=== PATIENT | male | born 1950 | race Caucasian/White ===

== ENCOUNTER 2017-08-10 12:34 | Day surgery (SDC) | payer MEDICARE ==
[2017-08-10] MEDS ORDERED: LACTATED RINGERS 1,000 ML IV ONE (13:11)
[2017-08-10] MEDS ORDERED: MIDAZOLAM 2 MG/2 ML VIAL IVP ONE (13:29)
[2017-08-10] MEDS ORDERED: fentaNYL 100 MCG/2 ML VIAL IVP ONE (13:29)
[2017-08-10 14:42] VITALS: BP 120/72
--- NOTE | 2017-08-11 03:35 | PROCEDURE REPORT ---
DATE OF PROCEDURE: 08/10/2017 00:00:00 PROCEDURES PERFORMED 1. EGD. 2. Colonoscopy. ENDOSCOPIST: Amaris Lemus MD. PRIMARY CARE: Joey Wiseman MD. INDICATION: Recurrent dysphagia with known history of Schatzki ring, need for dilation. Need for foll owup colonoscopy. PREMEDICATIONS: Fentanyl 150 mcg, Versed 8 mg IV titration. TOTAL SEDATION TIME: 30 minutes. After informed consent was obtained, the patient was placed in the left lateral decubitus position. V ideo upper scope introduced in the oropharynx. The patient helped swallow into the esophagus. The eso phagus, stomach, and duodenum were carefully examined. On withdrawal, retroflexed view of the GE junc tion was performed. The scope was removed. The patient tolerated the procedure well. The patient was then turned, scope substituted, and the scope was easily passed to the cecum. Prepara tion was good. On slow withdrawal, mucosa was carefully examined. The scope was removed. The patient tolerated the procedure well. BLOOD LOSS: None. COMPLICATIONS: None. FINDINGS EGD 1. Schatzki's ring at 40 cm dilated to 51 Upper [place] Sav[place] without difficulty and with no resistance. 2. Normal stomach. 3. Normal duodenum. Colonoscopy 1. A 1 cm pedunculated polyp at 30 cm, cold snared and removed completely. 2. Otherwise negative colonoscopy to cecum. The patient will call me in 8 weeks and let me know how is doing with his swallowing. We could go hig her in the future. A recall colon will need to be in 5 years. JOB #: [id number] EXT JOB #:[id number]
== END 2017-08-10 12:35 | disposition home or self-care (01) ==
LOC: SDS 12:34
PROVIDERS: ATTEND Internal Medicine Gastroenterology
PROC: 0D758ZZ Dilation of Esophagus, Via Natural or Artificial Opening Endoscopic (ICD-10-PCS; principal; 2017-08-10 13:30)
PROC: 0DBE8ZX Excision of Large Intestine, Via Natural or Artificial Opening Endoscopic, Diagnostic (ICD-10-PCS; 2017-08-10 13:30)
DX: K22.2 Esophageal obstruction (principal); D12.6 Benign neoplasm of colon, unspecified; I10 Essential (primary) hypertension; I48.91 Unspecified atrial fibrillation; Z87.891 Personal history of nicotine dependence; K21.9 Gastro-esophageal reflux disease without esophagitis; Z79.82 Long term (current) use of aspirin
CPT/HCPCS: 43248; 45385; 88305; J7120

== ENCOUNTER 2018-04-21 09:40 | Outpatient (CLI) | payer MEDICARE ==
--- NOTE | 2018-04-21 10:27 | XRAY Report ---
Procedure Date: 04/21/2018 Accession Number: [id number] / [id number] Procedure: XR - Elbow 3 View RT CPT Code: FULL RESULT: EXAM: Elbow 3 View RT DATE: 04/21/2018 10:17 AM CLINICAL HISTORY: ELBOW JOINT PAIN, WRIST PAIN, THUMB PAIN, RIGHT COMPARISON: None. TECHNIQUE: 3 views. FINDINGS: Bones: There is a minimally displaced fracture of the radial head, involving the articular surface. Joints: Large effusion. Soft Tissues: Soft tissue swelling. IMPRESSION: Minimally displaced fracture of the radial head, involving the articular surface. RADIA
--- NOTE | 2018-04-21 10:29 | XRAY Report ---
Procedure Date: 04/21/2018 Accession Number: [id number] / [id number] Procedure: XR - Wrist 2 View RT CPT Code: FULL RESULT: EXAM: Wrist 2 View RT DATE: 04/21/2018 10:19 AM CLINICAL HISTORY: ELBOW JOINT PAIN, WRIST PAIN, THUMB PAIN, RIGHT COMPARISON: None. TECHNIQUE: 2 views. FINDINGS: Bones: Normal. No fractures or bone lesions. Joints: Mild osteoarthritis. Soft Tissues: Normal. No soft tissue swelling. IMPRESSION: Mild osteoarthritis. No evidence of fracture. RADIA
--- NOTE | 2018-04-21 10:31 | XRAY Report ---
Procedure Date: 04/21/2018 Accession Number: [id number] / [id number] Procedure: XR - Finger(s) RT CPT Code: FULL RESULT: EXAM: Finger(s) RT Right first digit radiography CLINICAL HISTORY: ELBOW JOINT PAIN, WRIST PAIN, THUMB PAIN, RIGHT COMPARISON: None. TECHNIQUE: 2 views. FINDINGS: Bones: Normal. No fracture or bone lesion. Joints: Mild osteoarthritis. Soft Tissues: Normal. No soft tissue swelling. IMPRESSION: Mild osteoarthritis. RADIA
== END 2018-04-21 09:41 | disposition home or self-care (01) ==
LOC: DI 09:40
PROVIDERS: ATTEND Nurse Practitioner Primary Care
DX: S52.121A Displaced fracture of head of right radius, initial encounter for closed fracture (principal); M19.031 Primary osteoarthritis, right wrist; M19.041 Primary osteoarthritis, right hand
CPT/HCPCS: 73140

== ENCOUNTER 2018-08-02 07:56 | Outpatient (CLI) | payer MEDICARE ==
[2018-08-02 08:56] LABS: BASOPHILS # (AUTO) 0.1 10^3/uL (0.0-0.1); EOSINOPHILS # (AUTO) 0.1 10^3/uL (0.0-0.7); HGB - HEMOGLOBIN 14.9 g/dL (14.0-18.0); LYMPHOCYTES # (AUTO) 1.2 10^3/uL (1.5-3.5); LYMPHOCYTES % (AUTO) 21.6 %; MEAN CORPUSCULAR HEMOGLOBIN 32.5 pg (27.0-31.0); MEAN CORPUSCULAR HGB CONC 34.3 g/dL (32.0-36.0); MEAN CORPUSCULAR VOLUME 94.8 fL (80.0-94.0); MEAN PLATELET VOLUME 8.7 fL (7.4-11.4); MONOCYTES # (AUTO) 0.6 10^3/uL (0.0-1.0); MONOCYTES % (AUTO) 10.3 %; NEUTROPHILS # (AUTO) 3.7 10^3/uL (1.5-6.6); NEUTROPHILS % (AUTO) 65.1 %; PLT - PLATELET COUNT 280 10^3/uL (130-450); RED BLOOD COUNT 4.56 10^6/uL (4.70-6.10); RED CELL DISTRIBUTION WIDTH 14.8 % (12.0-15.0); WHITE BLOOD COUNT 5.7 x10^3/uL (4.8-10.8)
[2018-08-02 09:04] LABS: ALBUMIN/GLOBULIN RATIO 1.2 (1.0-2.2); ALKALINE PHOSPHATASE 53 IU/L (42-121); ALT ALANINE AMINOTRANSFERASE 16 IU/L (10-60); AST ASPARTATE AMINOTRANSFERASE 22 IU/L (10-42); BILIRUBIN,TOTAL 0.7 mg/dL (0.2-1.0); BUN - BLOOD UREA NITROGEN 9 mg/dL (6-20); CALCIUM 8.9 mg/dL (8.5-10.3); CARBON DIOXIDE - CO2 28 mmol/L (21-32); CHLORIDE 99 mmol/L (101-111); CHOL/HDL RATIO 2.5 (<5.0); CHOLESTEROL 221 mg/dL; CREATININE 1.1 mg/dL (0.6-1.2); GFR - MDRD 67 (>89); GLUCOSE 97 mg/dL (70-100); HDL CHOLESTEROL 89 mg/dL; LDL CHOLESTEROL,CALCULATED 121 mg/dL; LDL/HDL RATIO 1.4 (<3.6); SODIUM 134 mmol/L (135-145); TOTAL PROTEIN 7.4 g/dL (6.7-8.2); VLDL CHOLESTEROL 11 mg/dL
[2018-08-02 09:20] LABS: HB2 TOTAL 15.9 g/dL; HEMOGLOBIN A1C 0.52 g/dL; HEMOGLOBIN A1C % 5.1 % (4.6-6.2)
== END 2018-08-02 07:57 | disposition home or self-care (01) ==
LOC: LAB 07:56
PROVIDERS: ATTEND Nurse Practitioner Primary Care
DX: I10 Essential (primary) hypertension (principal); R73.01 Impaired fasting glucose; C64.9 Malignant neoplasm of unspecified kidney, except renal pelvis; D04.9 Carcinoma in situ of skin, unspecified; Z79.899 Other long term (current) drug therapy
CPT/HCPCS: 36415; 80053; 80061; 83036; 83721; 84443; 85025

== ENCOUNTER 2018-10-16 08:48 | Outpatient (CLI) | payer MEDICARE ==
[2018-10-16 09:27] LABS: ALT ALANINE AMINOTRANSFERASE 21 IU/L (10-60); AST ASPARTATE AMINOTRANSFERASE 26 IU/L (10-42); CHOL/HDL RATIO 1.8 (<5.0); CHOLESTEROL 175 mg/dL; HDL CHOLESTEROL 100 mg/dL; LDL CHOLESTEROL,CALCULATED 62 mg/dL; LDL/HDL RATIO 0.6 (<3.6); VLDL CHOLESTEROL 13 mg/dL
== END 2018-10-16 08:49 | disposition home or self-care (01) ==
LOC: LAB 08:48
PROVIDERS: ATTEND Nurse Practitioner Primary Care
DX: E78.5 Hyperlipidemia, unspecified (principal); Z79.899 Other long term (current) drug therapy
CPT/HCPCS: 36415; 80061; 83721; 84450; 84460

== ENCOUNTER 2018-11-22 08:00 | Outpatient (CLI) | payer MEDICARE ==
[2018-11-22 11:51] LABS: BASOPHILS % (AUTO) 0.6 %; EOSINOPHILS # (AUTO) 0.1 10^3/uL (0.0-0.7); EOSINOPHILS % (AUTO) 1.2 %; HGB - HEMOGLOBIN 13.8 g/dL (14.0-18.0); LYMPHOCYTES # (AUTO) 1.3 10^3/uL (1.5-3.5); LYMPHOCYTES % (AUTO) 15.8 %; MEAN CORPUSCULAR HEMOGLOBIN 34.2 pg (27.0-31.0); MEAN CORPUSCULAR HGB CONC 34.4 g/dL (32.0-36.0); MEAN CORPUSCULAR VOLUME 99.3 fL (80.0-94.0); MEAN PLATELET VOLUME 9.5 fL (7.4-11.4); MONOCYTES # (AUTO) 0.7 10^3/uL (0.0-1.0); MONOCYTES % (AUTO) 8.2 %; NEUTROPHILS % (AUTO) 74.2 %; PLT - PLATELET COUNT 240 10^3/uL (130-450); RED BLOOD COUNT 4.05 10^6/uL (4.70-6.10); RED CELL DISTRIBUTION WIDTH 13.7 % (12.0-15.0); WHITE BLOOD COUNT 8.1 x10^3/uL (4.8-10.8)
[2018-11-22 11:55] LABS: BILIRUBIN,URINE NEGATIVE (NEGATIVE); GLUCOSE, URINE (UA) NEGATIVE (NEGATIVE); KETONES,URINE (UA) NEGATIVE (NEGATIVE); LEUKOCYTE ESTERASE, URINE NEGATIVE (NEGATIVE); NITRITE,URINE NEGATIVE (NEGATIVE); OCCULT BLOOD,URINE TRACE-INTA (NEGATIVE); PROTEIN,URINE NEGATIVE (NEGATIVE); UROBILINOGEN,URINE 0.2 (NORMAL) E.U./dL (NORMAL)
[2018-11-22 11:57] LABS: CLARITY,URINE CLEAR (CLEAR)
[2018-11-22 12:07] LABS: ALBUMIN/GLOBULIN RATIO 1.3 (1.0-2.2); BILIRUBIN,TOTAL 0.7 mg/dL (0.2-1.0); CALCIUM 8.8 mg/dL (8.5-10.3); CREATININE 1.1 mg/dL (0.6-1.2); TOTAL PROTEIN 7.2 g/dL (6.7-8.2)
[2018-11-22 12:17] LABS: PSA FREE 0.34 ng/mL (0.16-2.81)
[2018-11-22 12:18] LABS: PSA TOTAL 1.02 ng/mL (0.000-2.000)
== END 2018-11-22 23:59 | disposition home or self-care (01) ==
LOC: LAB.R 08:00
PROVIDERS: ATTEND Nurse Practitioner Primary Care
DX: R39.9 Unspecified symptoms and signs involving the genitourinary system (principal); R31.9 Hematuria, unspecified; C64.9 Malignant neoplasm of unspecified kidney, except renal pelvis; M54.5 Low back pain
CPT/HCPCS: 80053; 81001; 81003; 84153; 84154; 85025; 87086

== ENCOUNTER 2019-02-03 10:58 | Emergency (ER) | payer MEDICARE ==
[2019-02-03] MEDS ORDERED: DEXAMETHASONE 10 MG/ML VIAL PO STA (11:27)
--- NOTE | 2019-02-03 11:32 | ED Physician Documentation ---
PD HPI LOWER EXT INJURY - Stated complaint Stated Complaint: RT LEG PX - Chief complaint Chief Complaint: Ext Problem - History obtained from History obtained from: Patient - History of Present Illness PD HPI LOW EXT INJURY LOCATION: Right, Hip, Upper leg Type of injury: Other (no known injury) Where injury occurred: Home Timing - onset: How many weeks ago (3) Timing - duration: Weeks (3) Timing - details: Gradual onset, Still present Improved by: Rest, Immobilization Worsened by: Moving, Palpating Associated symptoms: No: Weakness, Numbness, Tingling, Swelling Contributing factors: No: Anticoagulated Similar symptoms before: Has not had sx before Recently seen: Clinic - Additional information Additional information: 68-year-old male with a history of lung and kidney cancer that is in remission has developed pain in his right iliac extending down to the right medial knee. He states that he has had this pain for about 3 weeks and has been into see his primary care doctor and is been put on some meloxicam which did not help with the pain. He has been diagnosed with a pinched nerve and he does not recall any specific injury. He has not had known bony metastases from his prior cancers and his current status on cancer is no apparent disease. Review of Systems Constitutional: denies: Fever Eyes: denies: Decreased vision Ears: denies: Ear pain Nose: denies: Rhinorrhea / runny nose, Congestion Throat: denies: Sore throat Cardiac: denies: Chest pain / pressure Respiratory: denies: Dyspnea, Cough GI: denies: Abdominal Pain, Nausea, Vomiting : denies: Dysuria, Frequency PD PAST MEDICAL HISTORY - Past Medical History Cardiovascular: Hypertension, Atrial fibrillation Respiratory: None Endocrine/Autoimmune: None GI: GERD, Colon polyps : None HEENT: None Psych: None Musculoskeletal: None Derm: None - Past Surgical History General: Colonoscopy - Present Medications Home Medications: Ambulatory Orders Medication Instructions Recorded Confirmed Cholecalciferol (Vitamin D3) 1,000 mg PO DAILY 05/21/14 06/21/18 [Vitamin D] Multivitamin [Multivitamins] 1 tab PO DAILY 05/21/14 06/21/18 Omeprazole 40 mg PO DAILY 05/21/14 06/21/18 Aspirin 325 mg PO DAILY 10/29/15 06/21/18 Metoprolol Succinate 25 mg PO DAILY 11/16/16 08/15/18 Albuterol Sulfate [Proair Hfa 8.5 gm IH 02/03/19 Inhaler] Cyclobenzaprine [Flexeril] 10 mg PO TID PRN #20 tablet 02/03/19 Hydrocodone/Acetaminophen 1 - 2 each PO Q6H PRN #14 tablet 02/03/19 [Hydrocodon-Acetaminophen 5-325] - Allergies Allergies/Adverse Reactions: Allergies Allergy/AdvReac Type Severity Reaction Status Date / Time No Known Drug Allergies Allergy Verified 05/21/14 10:32 PD ED PE NORMAL - Vitals Vital signs reviewed: Yes (hypertensive ) - General General: Alert and oriented X 3, No acute distress, Well developed/nourished - HEENT HEENT: Atraumatic, PERRL, EOMI - Respiratory Respiratory: No respiratory distress - Back Back: No CVA TTP, No spinal TTP, Other (no paraspinous muscle tenderness. there is some tenderness extending into the sciatic notch. ) - Derm Derm: Normal color, Warm and dry, No rash - Extremities Extremities: No deformity, No edema, Other (There is no point tenderness to palpation of the femur on the right and distal n/v is intact. 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, No motor deficit, No sensory deficit, Normal speech Eye Opening: Spontaneous Motor: Obeys Commands Verbal: Oriented GCS Score: 15 - Psych Psych: Normal mood, Normal affect Results - Vitals Vitals: Vital Signs - 24 hr 02/03/19 02/03/19 11:06 13:31 Temperature 36.7 C Heart Rate 68 65 Respiratory 18 20 Rate Blood Pressure 155/87 H 184/94 H O2 Saturation 98 100 Oxygen O2 Source Room air - Rads (name of study) hip and pelvis Radiology: Prelim report reviewed (Impression: Possible sub-capitate fracture versus osteophyte), EMP read indepedently, See rad report femur Radiology: Prelim report reviewed (Impression: Normal femur radiography. See hip report), EMP read indepedently, See rad report PD MEDICAL DECISION MAKING - ED course Complexity details: reviewed results, re-evaluated patient, considered differential, d/w patient, d/w family ED course: 68-year-old male with pain radiating down his right leg consistent with sciatica has a history of lung and kidney cancer and we have x-rayed his bones today looking for any sign of metastases. The bony pictures are without sign of metastases. There is a question of subcapitate fracture vs. osteophyte and the clinical presentation would be more consistent with osteophyte. The patient has been given dexamethasone 10 mg orally he has some relief of his pain with this. Departure - Departure Disposition: 01 Home, Self Care Clinical Impression: Sciatica Qualifiers: Laterality: right Qualified Code(s): M54.31 - Sciatica, right side Condition: Stable Instructions: ED Sciatica Follow-Up: José Miguel Garcia MD [Primary Care Provider] - Prescriptions: Cyclobenzaprine [Flexeril] 10 mg PO TID PRN #20 tablet PRN Reason: Spasms Hydrocodone/Acetaminophen [Hydrocodon-Acetaminophen 5-325] 1 - 2 each PO Q6H PRN #14 tablet PRN Reason: pain Discharge Date/Time: 02/03/19 13:32
--- NOTE | 2019-02-03 13:29 | XRAY Report ---
Reason: pain from illiac to knee Procedure Date: 02/03/2019 Accession Number: [id number] / [id number] Procedure: XR - Femur 2V RT CPT Code: FULL RESULT: EXAM: RIGHT FEMUR RADIOGRAPHY EXAM DATE: 02/03/2019 12:59 PM. CLINICAL HISTORY: Pain from iliac to knee. COMPARISON: None. TECHNIQUE: 2 views. FINDINGS: Bones: No fracture or bone lesion. Joints: T knee joint unremarkable. No effusions. Soft Tissues: Vascular calcifications. No soft tissue swelling. IMPRESSION: Normal femur radiography. See hip report [facility]
--- NOTE | 2019-02-03 13:29 | XRAY Report ---
Reason: pain from illiac to knee hx/o CA Procedure Date: 02/03/2019 Accession Number: [id number] / [id number] Procedure: XR - Hip w/Pelvis 2-3V RT CPT Code: FULL RESULT: EXAM: RIGHT HIP RADIOGRAPHY EXAM DATE: 02/03/2019 12:59 PM HISTORY: Pain from iliac to knee hx/o CA. COMPARISONS: HIP 2 VIEW LT 04/20/2013 9:27 AM FEMUR 2V RT 02/03/2019 12:40 PM. TECHNIQUE: 2 views. FINDINGS: Bones: Osteopenia is present. Linear sclerosis on frog leg along the head neck junction.. Joints: Mild joint space narrowing. Soft Tissues: Vascular calcifications No soft tissue swelling. DJD lower lumbosacral spine IMPRESSION: Possible sub-capitate fracture versus osteophyte RAD[facility]
[2019-02-03 13:33] VITALS: BP 184/94
== END 2019-02-03 13:32 | disposition home or self-care (01) ==
LOC: ED 10:58
DX: M54.31 Sciatica, right side (principal); I10 Essential (primary) hypertension; Z85.118 Personal history of other malignant neoplasm of bronchus and lung; Z85.528 Personal history of other malignant neoplasm of kidney
CPT/HCPCS: 99283

== ENCOUNTER 2019-07-04 09:28 | Outpatient (CLI) | payer MEDICARE ==
[~2019-07-04 09:28] MED LIST: ALBUTEROL NEB 2.5 MG/3 ML INH SCH
[2019-07-04] MEDS ORDERED: ALBUTEROL NEB 2.5 MG/3 ML INH SCH (10:00)
== END 2019-07-04 09:29 | disposition home or self-care (01) ==
LOC: RT 09:28
PROVIDERS: ATTEND Family Medicine
DX: R06.2 Wheezing (principal)
CPT/HCPCS: 94060; 94664; 94727; 94729

== ENCOUNTER 2019-08-01 09:52 | Outpatient (CLI) | payer MEDICARE ==
[2019-08-01] MEDS ORDERED: IOVERSOL 320 100 ML VIAL IVP ONE (10:09)
[2019-08-01] MEDS ORDERED: IOVERSOL 320 50 ML VIAL ONE (10:09)
[2019-08-01 10:16] LABS: BASOPHILS # (AUTO) 0.1 10^3/uL (0.0-0.1); BASOPHILS % (AUTO) 0.5 %; EOSINOPHILS # (AUTO) 0.1 10^3/uL (0.0-0.7); EOSINOPHILS % (AUTO) 0.7 %; HGB - HEMOGLOBIN 14.3 g/dL (14.0-18.0); LYMPHOCYTES # (AUTO) 1.5 10^3/uL (1.5-3.5); LYMPHOCYTES % (AUTO) 15.9 %; MEAN CORPUSCULAR HEMOGLOBIN 34.2 pg (27.0-31.0); MEAN CORPUSCULAR HGB CONC 35.2 g/dL (32.0-36.0); MEAN CORPUSCULAR VOLUME 97.1 fL (80.0-94.0); MEAN PLATELET VOLUME 9.8 fL (7.4-11.4); MONOCYTES # (AUTO) 0.9 10^3/uL (0.0-1.0); MONOCYTES % (AUTO) 9.2 %; NEUTROPHILS # (AUTO) 6.9 10^3/uL (1.5-6.6); NEUTROPHILS % (AUTO) 73.4 %; PLT - PLATELET COUNT 252 10^3/uL (130-450); RED BLOOD COUNT 4.18 10^6/uL (4.70-6.10); RED CELL DISTRIBUTION WIDTH 12.9 % (12.0-15.0); WHITE BLOOD COUNT 9.4 x10^3/uL (4.8-10.8)
[2019-08-01 10:34] LABS: ALBUMIN 3.9 g/dL (3.2-5.5); ALBUMIN/GLOBULIN RATIO 1.1 (1.0-2.2); BILIRUBIN,TOTAL 0.8 mg/dL (0.2-1.0); CALCIUM 9.1 mg/dL (8.5-10.3); CREATININE 1.1 mg/dL (0.6-1.2); TOTAL PROTEIN 7.6 g/dL (6.7-8.2)
--- NOTE | 2019-08-05 13:17 | CT Report ---
Reason: LUNG CA Procedure Date: 08/01/2019 Accession Number: [id number] / [id number] Procedure: CT - CHEST W CPT Code: FULL RESULT: EXAM: CT CHEST EXAM DATE: 08/01/2019 11:50 AM. CLINICAL HISTORY: Malignant neoplasm of the lung. COMPARISONS: ABDOMEN/PELVIS W/ 12/05/2017 10:56 AM CHEST W/ 05/31/2018 9:47 AM ABDOMEN/PELVIS W/ 08/01/2019 11:20 AM CHEST W05/31/2018 9:59 AM. TECHNIQUE: Routine helical CT imaging was performed through the chest. IV contrast: 100 mL Optiray 320. Reconstructions: Coronal and sagittal. In accordance with CT protocol optimization, one or more of the following dose reduction techniques were utilized for this exam: automated exposure control, adjustment of mA and/or KV based on patient size, or use of iterative reconstructive technique. FINDINGS: Lungs/Pleura: Moderate centrilobular emphysema is seen. Postoperative changes related to left lower lobectomy are again seen. There is no mass to suggest tumor recurrence. Stable mild subpleural scarring and thoracotomy changes along the left mid to lower chest wall. Stable 4 mm right lower lobe pulmonary nodule (image 195/3). Mediastinum: Heart size is normal with no pericardial effusion or adenopathy. Postoperative changes in the left hilum are seen again. The great vessels are unremarkable. Bones: Unremarkable. Visualized Abdomen: See separate report. Other: None. IMPRESSION: 1. Stable exam compared with 05/31/2018 status post left lower lobectomy with no findings to suggest residual or recurrent malignancy. 2. Stable moderate emphysema and tiny 4 mm right lower lobe pulmonary nodule. RADIA
--- NOTE | 2019-08-05 13:18 | CT Report ---
Reason: LUNG CA Procedure Date: 08/01/2019 Accession Number: [id number] / [id number] Procedure: CT - Abdomen/Pelvis W CPT Code: FULL RESULT: EXAM: CT ABDOMEN AND PELVIS EXAM DATE: 08/01/2019 11:50 AM. CLINICAL HISTORY: Malignant neoplasm of the left lower lobe. COMPARISONS: ABDOMEN/PELVIS W/ 12/05/2017 10:56 AM ABDOMEN/PELVIS W/ 05/31/2018 9:47 AM ABDOMEN/PELVIS W05/31/2018 9:59 AM. TECHNIQUE: Routine helical CT imaging was performed through the abdomen and pelvis. IV contrast: 100 mL Optiray 320. Enteric contrast: Yes. Reconstructions: Coronal and sagittal. In accordance with CT protocol optimization, one or more of the following dose reduction techniques were utilized for this exam: automated exposure control, adjustment of mA and/or KV based on patient size, or use of iterative reconstructive technique. FINDINGS: Lung Bases: See separate report. Liver: Unremarkable. Gallbladder/Bile Ducts: Unremarkable. Spleen: Normal. Pancreas: Normal. Adrenal Glands: Normal. Kidneys: Postoperative changes related to right nephrectomy are again seen. The left kidney demonstrates a small cyst and cortical scarring in the lateral mid kidney, stable. No hydronephrosis. Peritoneal Cavity/Bowel: There is mild predominantly sigmoid diverticulosis without evidence of diverticulitis. There is no obstruction or ileus. No free fluid or free air. The appendix is well visualized and normal. Pelvic Organs: The bladder wall is borderline diffusely thickened, nonspecific. Bladder and visualized pelvic organs are otherwise within normal limits. Vasculature: Calcified atherosclerotic disease of the aorta is seen without aneurysm or other significant vascular abnormality. Bones: Degenerative changes are seen in the spine. No lytic or blastic lesion is identified. Other: Small fat-containing periumbilical hernia is seen. IMPRESSION: 1. No adenopathy or mass to suggest malignancy status post right nephrectomy. 2. Mild sigmoid diverticulosis without diverticulitis. 3. Borderline thick-walled partially decompressed bladder which may be related to chronic retention. Correlate clinically for cystitis. 4. Small fat-containing periumbilical hernia. RADIA
== END 2019-08-01 09:53 | disposition home or self-care (01) ==
LOC: DI 09:52
PROVIDERS: ATTEND Internal Medicine
DX: J43.2 Centrilobular emphysema (principal); R91.1 Solitary pulmonary nodule; Z08 Encounter for follow-up examination after completed treatment for malignant neoplasm; Z85.118 Personal history of other malignant neoplasm of bronchus and lung; Z90.2 Acquired absence of lung [part of]; K42.9 Umbilical hernia without obstruction or gangrene; K57.30 Diverticulosis of large intestine without perforation or abscess without bleeding
CPT/HCPCS: 36415; 71260; 74177; 80053; 85025; Q9967

== ENCOUNTER 2020-07-31 10:01 | Outpatient (CLI) | payer MEDICARE ==
[2020-07-31] MEDS ORDERED: IOVERSOL 320 50 ML VIAL ONE (10:20)
[2020-07-31] MEDS ORDERED: IOVERSOL 320 100 ML VIAL IVP ONE ×2 (10:20→13:39)
[2020-07-31 10:37] LABS: BASOPHILS # (AUTO) 0.1 10^3/uL (0.0-0.1); BASOPHILS % (AUTO) 0.5 %; EOSINOPHILS # (AUTO) 0.1 10^3/uL (0.0-0.7); EOSINOPHILS % (AUTO) 0.4 %; HGB - HEMOGLOBIN 14.4 g/dL (14.0-18.0); LYMPHOCYTES # (AUTO) 1.4 10^3/uL (1.5-3.5); LYMPHOCYTES % (AUTO) 11.6 %; MEAN CORPUSCULAR HEMOGLOBIN 34.2 pg (27.0-31.0); MEAN CORPUSCULAR HGB CONC 34.8 g/dL (32.0-36.0); MEAN CORPUSCULAR VOLUME 98.3 fL (80.0-94.0); MEAN PLATELET VOLUME 9.7 fL (7.4-11.4); MONOCYTES # (AUTO) 0.9 10^3/uL (0.0-1.0); MONOCYTES % (AUTO) 7.5 %; NEUTROPHILS # (AUTO) 9.5 10^3/uL (1.5-6.6); NEUTROPHILS % (AUTO) 79.7 %; PLT - PLATELET COUNT 274 10^3/uL (130-450); RED BLOOD COUNT 4.21 10^6/uL (4.70-6.10); RED CELL DISTRIBUTION WIDTH 12.6 % (12.0-15.0)
[2020-07-31 10:46] LABS: ALBUMIN/GLOBULIN RATIO 1.1 (1.0-2.2); BILIRUBIN,TOTAL 0.9 mg/dL (0.2-1.0); CALCIUM 9.1 mg/dL (8.5-10.3); CREATININE 1.3 mg/dL (0.6-1.2); TOTAL PROTEIN 7.5 g/dL (6.7-8.2)
--- NOTE | 2020-07-31 13:15 | CT Report ---
PROCEDURE: Abdomen/Pelvis W INDICATIONS: HX LUNG CA CONTRAST: IV CONTRAST: Optiray 320 ml: 100 PO CONTRAST: Optiray 320 ml50 TECHNIQUE: After the administration of oral and intravenous contrast, 5 mm thick sections acquired from the diap hragms to the symphysis. 5 mm thick coronal and sagittal reformats were acquired. For radiation dos e reduction, the following was used: automated exposure control, adjustment of mA and/or kV accordin g to patient size. COMPARISON: 08/01/2019 FINDINGS: Image quality: Excellent. ABDOMEN: Lung bases: Lung bases are clear. Heart size is normal. Solid organs: Liver and spleen are normal in size and enhancement. Gallbladder is unremarkable. Bi liary system is non dilated. Pancreas enhances normally. No adrenal nodules. Right kidney is surgic ally absent. Left kidney is unremarkable. Peritoneum and bowel: Bowel loops demonstrate normal wall thickness and caliber. No free fluid or a ir. There is a mobile cecum. The cecum currently sits lateral to the right lobe of the liver. Refere nce image 30/6 and image 30/3. The fat-containing ileocecal valve is present on those images. Nodes and vessels: No retroperitoneal or mesenteric adenopathy by size criteria. Aorta and inferior vena cava are normal in size. 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 Refe rence image 35/3 and image 33/7. Miscellaneous: No ventral hernias. PELVIS: Genitourinary: Bladder partially decompressed with mild chronic bladder wall thickening. Miscellaneous: No inguinal hernias or adenopathy. Bones: No suspicious bony lesions. No vertebral body compression fractures. IMPRESSION: 1. No evidence of metastatic disease in the abdomen and pelvis. 2. 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 3. Mobile cecum incidentally noted. 4. Remote right nephrectomy. Reviewed by: Maurice Pagan MD on 07/31/2020 1:14 PM PDT Approved by: Maurice Pagan MD on 07/31/2020 1:14 PM PDT Station ID: [id number]
--- NOTE | 2020-07-31 13:25 | CT Report ---
PROCEDURE: CHEST W INDICATIONS: HX LUNG CA CONTRAST: IV CONTRAST: Optiray 320 ml: 100 PO CONTRAST: Optiray 320 ml50 TECHNIQUE: After the administration of intravenous contrast, 5 mm thick sections acquired from the pulmonary api jay to the posterior costophrenic angles. 7 mm thick coronal MIP reformats were acquired. For radia tion dose reduction, the following was used: automated exposure control, adjustment of mA and/or kV according to patient size. COMPARISON: 08/01/2019, 05/31/2018. FINDINGS: Image quality: Excellent. Lungs and pleura: Moderate centrilobular emphysema. Remote partial left pulmonary resection. Stable 4 mm subpleural pulmonary nodule, right lower lobe compared to the most recent prior study. This nodul e is more conspicuous on the most recent 2 studies relative to the 2018 study. However, this is likel y secondary to differences in technique. The initial study utilized 5 mm thick slices, and the subseq uent 2 studies were utilized 1 mm thick slices. No new or increasing pulmonary nodules. Central and p eripheral airways are patent and normal in caliber. Mediastinum: Heart size is normal. No pericardial effusion. No mediastinal or hilar adenopathy by size criteria. Thoracic aorta and central pulmonary arteries are normal in size. Esophagus is price l in caliber. No hiatal hernia. Bones and chest wall: No suspicious bony lesions. No vertebral body compression fractures. No axil charley or supraclavicular adenopathy by size criteria. Thyroid gland is unremarkable as imaged.. Abdomen: Remote right nephrectomy. Visualized upper abdominal solid organs appear normal. Upper abd ominal bowel loops are normal in caliber. IMPRESSION: 1. Remote partial left pulmonary resection. 2. Moderate centrilobular emphysema. 3. Stable 4 mm right lower lobe subpleural pulmonary nodule 4. No new or increasing pulmonary nodules. 5. Remote right nephrectomy. 6. No other findings suspicious for metastatic disease. Reviewed by: Maurice Pagan MD on 07/31/2020 1:23 PM PDT Approved by: Maurice Pagan MD on 07/31/2020 1:23 PM PDT Station ID: [id number]
[2020-07-31] MEDS ORDERED: IOVERSOL 320 50 ML VIAL PO ONE (13:39)
== END 2020-07-31 10:02 | disposition home or self-care (01) ==
LOC: DI 10:01
PROVIDERS: ATTEND Internal Medicine
DX: Z08 Encounter for follow-up examination after completed treatment for malignant neoplasm (principal); Z85.118 Personal history of other malignant neoplasm of bronchus and lung; R91.1 Solitary pulmonary nodule; J43.2 Centrilobular emphysema
CPT/HCPCS: 36415; 71260; 74177; 80053; 85025; Q9967

== ENCOUNTER 2021-02-20 10:19 | Day surgery (SDC) | payer MEDICARE ==
[2021-02-20] MEDS ORDERED: LACTATED RINGERS 1,000 ML IV ONE (10:51)
--- NOTE | 2021-02-20 12:37 | HISTORY & PHYSICAL EXAMINATION ---
Chief Complaint - Chief Complaint Chief Complaint: history colon polyp History of Present Illness - History Obtained From Records Reviewed: yes History obtained from: pt Exam Limitations: none - History of Present Illness HPI Comment/Other: History colon polyp. Here for surveillance colonoscopy. History - Past Medical History Cardiovascular: reports: Hypertension Respiratory: reports: COPD, Other Endocrine/Autoimmune: reports: None GI: reports: Colon polyps : reports: None, Other HEENT: reports: None Psych: reports: None Musculoskeletal: reports: None Derm: reports: None MRSA Hx?: No - Past Surgical History General: reports: Other Meds/Allgy - Home Medications Home Medications: Ambulatory Orders Medication Instructions Recorded Confirmed Cholecalciferol (Vitamin D3) 1,000 mg PO DAILY 05/21/14 02/19/21 [Vitamin D] Multivitamin [Multivitamins] 1 tab PO DAILY 05/21/14 02/19/21 Omeprazole 40 mg PO DAILY 05/21/14 02/19/21 Aspirin 325 mg PO DAILY 10/29/15 02/19/21 Metoprolol Succinate 25 mg PO DAILY 09/22/16 02/19/21 Fluticasone/Salmeterol [Advair 1 each INH PRN PRN 08/08/19 02/19/21 500-50 Diskus] - Allergies Allergies/Adverse Reactions: Allergies Allergy/AdvReac Type Severity Reaction Status Date / Time No Known Drug Allergies Allergy Verified 08/06/20 13:10 Review of Systems - Constitutional Constitutional: reports: Fatigue (10 pt ros as above otherwise unremarkable) Exam - Vital Signs Reviewed Vital Signs: Yes Vital Signs: Vital Signs x48h Temp Pulse Resp BP Pulse Ox 02/20/21 10:36 36.5 C 86 16 155/90 H 97 - Physical Exam General Appearance: positive: No acute distress, Alert Eyes Bilateral: positive: Normal inspection, PERRL ENT: positive: No signs of dehydration Neck: positive: No JVD, Trachea midline Respiratory: positive: No respiratory distress, Breath sounds nml Cardiovascular: positive: Regular rate & rhythm Abdomen: positive: Non-tender, No distention Neurologic/Psychiatric: positive: Oriented x3 Conclusion/Plan - Problem List (1) Colon cancer screening Conclusion/Plan: plan colonoscopy. parq held and consent obtained
[2021-02-20] MEDS ORDERED: fentaNYL 250 MCG/5 ML VIAL ONE (12:44)
[2021-02-20] MEDS ORDERED: MIDAZOLAM 2 MG/2 ML VIAL ONE ×3 (12:44→13:05)
[2021-02-20] MEDS ORDERED: LACTATED RINGERS 150 ML IV ONE (13:43)
[2021-02-20 14:15] VITALS: BP 138/81
== END 2021-02-20 10:20 | disposition home or self-care (01) ==
LOC: SDS 10:19
PROVIDERS: ATTEND Surgery
PROC: 0DBN8ZX Excision of Sigmoid Colon, Via Natural or Artificial Opening Endoscopic, Diagnostic (ICD-10-PCS; 2021-02-20)
PROC: 0DBM8ZX Excision of Descending Colon, Via Natural or Artificial Opening Endoscopic, Diagnostic (ICD-10-PCS; 2021-02-20)
PROC: 0DBH8ZZ Excision of Cecum, Via Natural or Artificial Opening Endoscopic (ICD-10-PCS; 2021-02-20)
PROC: 0DBH8ZZ Excision of Cecum, Via Natural or Artificial Opening Endoscopic (ICD-10-PCS; principal; 2021-02-20 11:30)
DX: Z12.11 Encounter for screening for malignant neoplasm of colon (principal); D12.5 Benign neoplasm of sigmoid colon; D12.0 Benign neoplasm of cecum; D12.4 Benign neoplasm of descending colon; K57.30 Diverticulosis of large intestine without perforation or abscess without bleeding; J44.9 Chronic obstructive pulmonary disease, unspecified; I10 Essential (primary) hypertension; Z80.0 Family history of malignant neoplasm of digestive organs
CPT/HCPCS: 45380; 45385; J3010; J7120

== ENCOUNTER 2021-07-29 08:59 | Outpatient (CLI) | payer MEDICARE ==
[2021-07-29] MEDS ORDERED: IOVERSOL 320 50 ML VIAL ONE (09:10)
[2021-07-29] MEDS ORDERED: IOPAMIDOL-300 100 ML VIAL ONE (09:10)
--- NOTE | 2021-07-29 10:46 | CT Report ---
PROCEDURE: Abdomen/Pelvis W INDICATIONS: Lung cancer staging; history of renal cell carcinoma CONTRAST: IV CONTRAST: Isovue 300 ml: 100 PO CONTRAST: Optiray 320 ml50 TECHNIQUE: After the administration of intravenous contrast, 5 mm thick sections acquired from the diaphragms to the symphysis. 5 mm thick coronal and sagittal reformats were acquired. For radiation dose reducti on, the following was used: automated exposure control, adjustment of mA and/or kV according to tree ent size. COMPARISON: 07/31/2020 FINDINGS: Image quality: Excellent. ABDOMEN: Solid organs: Status post right nephrectomy. No suspicious soft tissue density or enhancement within the nephrectomy bed. Left kidney demonstrates normal enhancement of the abdomen since unchanged scarr ing in the anterior cortex on series 3 image 30. No adrenal gland nodule or mass. Uniform hepatic par enchymal attenuation. No splenomegaly. Normal appearance of the pancreas without evidence of mass or ductal dilatation. Peritoneum and bowel: Bowel loops demonstrate normal wall thickness and caliber. No free fluid or a ir. Nodes and vessels: No retroperitoneal or mesenteric adenopathy by size criteria. Aorta and inferior vena cava are normal in size. Miscellaneous: No ventral hernias. PELVIS: Genitourinary: Chronic urinary bladder wall thickening as seen on prior studies. No discrete mass julienne ntified. Miscellaneous: No inguinal hernias or adenopathy. Bones: No suspicious bony lesions. No vertebral body compression fractures. IMPRESSION: No evidence of metastatic disease in the abdomen or pelvis. Remote right nephrectomy with no suspicious soft tissue density in the nephrectomy bed. Reviewed by: Conner Ortiz MD on 07/29/2021 10:44 AM PDT Approved by: Conner Ortiz MD on 07/29/2021 10:44 AM PDT Station ID: [id number]
[2021-07-29] MEDS ORDERED: IOPAMIDOL-300 100 ML VIAL IVP ONE (11:33)
[2021-07-29] MEDS ORDERED: IOVERSOL 320 50 ML VIAL PO ONE (11:33)
--- NOTE | 2021-07-29 13:34 | CT Report ---
PROCEDURE: CHEST W INDICATIONS: LUNG CA CONTRAST: IV CONTRAST: Isovue 300 ml: 100 PO CONTRAST: Optiray 320 ml50 TECHNIQUE: After the administration of intravenous contrast, images were acquired from the pulmonary apices to t he posterior costophrenic angles. Multiplanar MIP reformats were acquired. For radiation dose reduc tion, the following was used: automated exposure control, adjustment of mA and/or kV according to pa tient size. COMPARISON: 07/31/2020. FINDINGS: Image quality: Excellent. Lungs and pleura: Moderate centrilobular pulmonary emphysematous changes as before. Dependent atelec tasis. No acute air space opacities. No pleural effusions or pneumothorax. Stable postsurgical carrizales ges from partial left pneumonectomy. No septal thickening or nodularity. Stable 4 mm peripheral right lower lobe pulmonary nodule seen on axial image 216/series 3. No new nodules or enlarging nodules. C entral and peripheral airways are patent and normal in caliber. Mediastinum: Heart size is normal. No pericardial effusion. No mediastinal or hilar adenopathy by size criteria. Thoracic aorta and central pulmonary arteries are normal in size. Esophagus is price l in caliber. No hiatal hernia. Bones and chest wall: No suspicious bony lesions. No acute vertebral body compression fractures. S urgical clips noted in the right axilla. No axillary or supraclavicular adenopathy by size criteria. The thyroid is normal in size and there are no incidental findings.. Abdomen: Visualized upper abdominal solid organs appear unremarkable. Stable postsurgical changes fr om previous right nephrectomy. Abdomen and pelvis findings are reported as a separate report. IMPRESSION: 1. Stable appearance of postsurgical changes from partial left pneumonectomy. 2. Stable 4 mm right lower lobe pulmonary nodule. No new nodules identified. 3. Stable appearance of moderate centrilobular pulmonary emphysema. 4. No evidence for recurrent or metastatic disease. CLINICAL RECOMMENDATION STATEMENTS: In patients <35 years with an ITN detected on CT, MRI, or extrathyroidal ultrasound, the Committee re commends further evaluation with dedicated thyroid ultrasound if the nodule is ?1 cm and has no suspi cious imaging features, and if the patient has normal life expectancy. In patients ?35 years with an ITN detected on CT, MRI, or extrathyroidal ultrasound, the Committee re commends further evaluation with dedicated thyroid ultrasound if the nodule is ?1.5 cm and has no eva picious imaging features, and if the patient has normal life expectancy. (ACR, 2014) Reviewed by: Pedrito Quintero MD on 07/29/2021 1:33 PM PDT Approved by: Pedrito Quintero MD on 07/29/2021 1:33 PM PDT Station ID: [id number]
== END 2021-07-29 09:00 | disposition home or self-care (01) ==
LOC: DI 08:59
PROVIDERS: ATTEND Internal Medicine
DX: Z85.110 Personal history of malignant carcinoid tumor of bronchus and lung (principal); Z90.5 Acquired absence of kidney; Z90.2 Acquired absence of lung [part of]; R91.1 Solitary pulmonary nodule; J43.2 Centrilobular emphysema

== ENCOUNTER 2022-07-29 08:24 | Day surgery (SDC) | payer MEDICARE ==
[2022-07-29] MEDS ORDERED: LACTATED RINGERS 1,000 ML IV ONE ×2 (08:29→11:41)
--- NOTE | 2022-07-29 09:43 | ANESTHESIA ---
Pre-Anesthesia VS, & Labs - Diagnosis hx of polyps - Procedure colonoscopy Vital Signs: Temp Pulse Resp BP Pulse Ox O2 Flow Rate 36.5 C 78 16 116/82 H 97 0 07/29/22 08:45 07/29/22 08:45 07/29/22 08:45 07/29/22 08:45 07/29/22 08:45 07/29/22 08:45 Height: 6 ft 4 in Weight (kg): 81.9 kg Body Mass Index: 21.9 BMI Classification: Normal - NPO >8 hours Home Medications and Allergies Home Medications: Ambulatory Orders Albuterol 2.5 mg INH Q4H PRN 07/28/22 Atorvastatin [Lipitor] 20 mg PO DAILY 07/28/22 Tiotropium [place] [Spiriva] 1 puffs INH DAILY 07/28/22 Cholecalciferol (Vitamin D3) [Vitamin D] 1,000 mg PO DAILY 05/21/14 Multivitamin [Multivitamins] 1 tab PO DAILY 05/21/14 Omeprazole 40 mg PO DAILY 05/21/14 Metoprolol Succinate 25 mg PO DAILY 09/22/16 Fluticasone/Salmeterol [Advair 500-50 Diskus] 1 each INH PRN PRN 08/08/19 Albuterol 2.5 mg INH Q4H PRN 07/28/22 Atorvastatin [Lipitor] 20 mg PO DAILY 07/28/22 Tiotropium [place] [Spiriva] 1 puffs INH DAILY 07/28/22 Allergies/Adverse Reactions: Allergies Allergy/AdvReac Type Severity Reaction Status Date / Time No Known Drug Allergies Allergy Verified 08/06/20 13:10 Anes History & Medical History - Anesthetic History Anesthesia Complications: reports: No previous complications Family history of Anesthesia Complications: Denies Family history of Malignant Hyperthermia: Denies - Medical History Cardiovascular: reports: Hypertension Pulmonary: reports: COPD, Other Gastrointestinal: reports: Colon polyps Urinary: reports: None, Other Musculoskeletal: reports: None Endocrine/Autoimmune: reports: None Skin: reports: None Smoking Status: Never smoker - Surgical History General: reports: Colonoscopy, Other Urologic: reports: Nephrectomy Exam General: Alert, Oriented x3, Cooperative Dental: WNL Mouth Openin Fingerbreadth Neck Mobility: Normal Mallampati classification: II Thyromental Distance: 4-6 cm Respiratory: Lungs clear Cardiovascular: Regular rate Plan Anesthesia Type: Total IV Consent for Procedure(s) Verified and Reviewed: Yes Code Status: Attempt Resuscitation ASA classification: 3-Severe systemic disease Is this case an emergency?: No
[2022-07-29] MEDS ORDERED: PROPOFOL 200 MG/20 ML VIAL IVP ONE (09:59)
[2022-07-29] MEDS ORDERED: LIDOCAINE-MPF 2% 5 ML VIAL ONE (09:59)
[2022-07-29] MEDS ORDERED: PROPOFOL 500 MG/50 ML 500 MG/50 ML VIAL ONE (09:59)
[2022-07-29] MEDS ORDERED: ePHEDrine 50 MG/ML VIAL IVP ONE (11:04)
[2022-07-29 11:15] VITALS: BP 125/77
--- NOTE | 2022-07-29 16:49 | ANESTHESIA POST OP EVALUATION ---
Anesthesia Post Eval - Post Anesthesia Eval Vitals: Last Vital Signs Temp 36.5 C 07/29/22 11:15 Pulse 84 07/29/22 11:15 Resp 14 07/29/22 11:15 BP 125/77 07/29/22 11:15 Pulse Ox 97 07/29/22 11:15 O2 Flow Rate 0 07/29/22 08:45 CV Function Including HR & BP: Stable Pain Control: Satisfactory Nausea & Vomiting: Negative Mental Status: Baseline Respiratory Status: Airway Patent Hydration Status: Satisfactory Anesthesia Complications: None
== END 2022-07-29 08:25 | disposition home or self-care (01) ==
LOC: SDS 08:24
PROVIDERS: ATTEND Surgery
PROC: 0DBH8ZX Excision of Cecum, Via Natural or Artificial Opening Endoscopic, Diagnostic (ICD-10-PCS; principal; 2022-07-29 09:45)
DX: D12.0 Benign neoplasm of cecum (principal); K57.30 Diverticulosis of large intestine without perforation or abscess without bleeding; J44.9 Chronic obstructive pulmonary disease, unspecified; I10 Essential (primary) hypertension; Z85.118 Personal history of other malignant neoplasm of bronchus and lung
CPT/HCPCS: 45380; J7120

== ENCOUNTER 2023-05-19 06:24 | Day surgery (SDC) | payer MEDICARE ==
[2023-05-19] MEDS ORDERED: PROPOFOL 500 MG/50 ML 500 MG/50 ML VIAL ONE (06:46)
[2023-05-19] MEDS ORDERED: LACTATED RINGERS 1,000 ML IV ONE ×2 (06:57→08:16)
[2023-05-19] MEDS ORDERED: ALBUTEROL 8 GM INHALER INH ONE (07:08)
--- NOTE | 2023-05-19 07:11 | ANESTHESIA ---
Pre-Anesthesia VS, & Labs - Diagnosis hx of polyps - Procedure colonoscopy Vital Signs: Temp Pulse Resp BP Pulse Ox O2 Flow Rate 36.2 C L 72 16 129/70 100 05/19/23 06:43 05/19/23 06:43 05/19/23 06:43 05/19/23 06:43 05/19/23 06:43 Height: 6 ft 4 in Weight (kg): 76.5 kg Body Mass Index: 20.5 BMI Classification: Normal - NPO >8 hours - Lab Results Lab results reviewed: Yes Home Medications and Allergies Home Medications: Ambulatory Orders amLODIPine [Norvasc] 5 mg PO DAILY 05/18/23 Cholecalciferol (Vitamin D3) [Vitamin D] 1,000 mg PO DAILY 05/21/14 Multivitamin [Multivitamins] 1 tab PO DAILY 05/21/14 Omeprazole 40 mg PO DAILY 05/21/14 Metoprolol Succinate 25 mg PO DAILY 09/22/16 Fluticasone/Salmeterol [Advair 500-50 Diskus] 1 each INH PRN PRN 08/08/19 Albuterol 2.5 mg INH Q4H PRN 07/28/22 Atorvastatin [Lipitor] 20 mg PO DAILY 07/28/22 Tiotropium [place] [Spiriva] 1 puffs INH DAILY 07/28/22 amLODIPine [Norvasc] 5 mg PO DAILY 05/18/23 Allergies/Adverse Reactions: Allergies Allergy/AdvReac Type Severity Reaction Status Date / Time No Known Drug Allergies Allergy Verified 08/06/20 13:10 Anes History & Medical History - Anesthetic History Anesthesia Complications: reports: No previous complications Family history of Anesthesia Complications: Denies Family history of Malignant Hyperthermia: Denies - Medical History Cardiovascular: reports: Hypertension, Other (hx of afib) Pulmonary: reports: COPD, Other Gastrointestinal: reports: Colon polyps Urinary: reports: None, Other Musculoskeletal: reports: None Endocrine/Autoimmune: reports: None Skin: reports: None Smoking Status: Current every day smoker - Surgical History General: reports: Colonoscopy, Other Urologic: reports: Nephrectomy Exam General: Alert, Oriented x3, Cooperative Dental: Partials Lower Mouth Openin Fingerbreadth Neck Mobility: Normal Mallampati classification: II Thyromental Distance: 4-6 cm Respiratory: Wheezing Cardiovascular: Regular rate (albuterol in preop) Plan Anesthesia Type: General, MAC Consent for Procedure(s) Verified and Reviewed: Yes Code Status: Attempt Resuscitation ASA classification: 3-Severe systemic disease Is this case an emergency?: No
--- NOTE | 2023-05-19 07:22 | HISTORY & PHYSICAL EXAMINATION ---
Chief Complaint - Chief Complaint Chief Complaint: here for colonoscopy History of Present Illness - History Obtained From Records Reviewed: yes History obtained from: pt Exam Limitations: none - History of Present Illness HPI Comment/Other: hx large flat polyp cecum removed piecemeal. here for surveillance colonoscopy History - Past Medical History Cardiovascular: reports: Hypertension, Other (hx of afib) Respiratory: reports: COPD, Other Endocrine/Autoimmune: reports: None GI: reports: Colon polyps : reports: None, Other HEENT: reports: None Psych: reports: None Musculoskeletal: reports: None Derm: reports: None MRSA Hx?: No - Past Surgical History General: reports: Colonoscopy, Other Meds/Allgy - Home Medications Home Medications: Ambulatory Orders Medication Instructions Recorded Confirmed Cholecalciferol (Vitamin D3) 1,000 mg PO DAILY 05/21/14 05/18/23 [Vitamin D] Multivitamin [Multivitamins] 1 tab PO DAILY 05/21/14 05/18/23 Omeprazole 40 mg PO DAILY 05/21/14 05/18/23 Metoprolol Succinate 25 mg PO DAILY 09/22/16 05/18/23 Fluticasone/Salmeterol [Advair 1 each INH PRN PRN 08/08/19 05/18/23 500-50 Diskus] Albuterol 2.5 mg INH Q4H PRN 07/28/22 05/18/23 Atorvastatin [Lipitor] 20 mg PO DAILY 07/28/22 05/18/23 Tiotropium [place] [Spiriva] 1 puffs INH DAILY 07/28/22 05/18/23 amLODIPine [Norvasc] 5 mg PO DAILY 05/18/23 05/18/23 - Allergies Allergies/Adverse Reactions: Allergies Allergy/AdvReac Type Severity Reaction Status Date / Time No Known Drug Allergies Allergy Verified 08/06/20 13:10 Review of Systems - Other Findings Other Findings: 10 pt ros as above otherwise unremarkable Exam - Vital Signs Vital Signs: Vital Signs x48h Temp Pulse Resp BP Pulse Ox 05/19/23 06:43 36.2 C L 72 16 129/70 100 - Physical Exam General Appearance: positive: No acute distress, Alert Eyes Bilateral: positive: EOMI ENT: positive: No signs of dehydration Neck: positive: No JVD, Trachea midline Respiratory: positive: No respiratory distress Cardiovascular: positive: Regular rate & rhythm Abdomen: positive: Non-tender, No distention Neurologic/Psychiatric: positive: Oriented x3 Conclusion/Plan - Problem List (1) Colon cancer screening Conclusion/Plan: plan colonoscopy. parq held and consent obtained - Lab Results Lab results reviewed: Yes
[2023-05-19] MEDS ORDERED: SIMETHICONE 40 MG/0.6 ML 30 ML BOTTLE ONE (07:58)
[2023-05-19] MEDS ORDERED: SIMETHICONE 40 MG/0.6 ML 30 ML BOTTLE PO ONE (08:00)
[2023-05-19 08:43] VITALS: BP 138/76
--- NOTE | 2023-05-19 10:47 | ANESTHESIA POST OP EVALUATION ---
Anesthesia Post Eval - Post Anesthesia Eval Vitals: Last Vital Signs Temp 36.0 C L 05/19/23 08:42 Pulse 73 05/19/23 08:42 Resp 15 05/19/23 08:42 BP 138/76 H 05/19/23 08:42 Pulse Ox 99 05/19/23 08:42 O2 Flow Rate CV Function Including HR & BP: Stable Pain Control: Satisfactory Nausea & Vomiting: Negative Mental Status: Baseline Respiratory Status: Airway Patent Hydration Status: Satisfactory Anesthesia Complications: None
== END 2023-05-19 06:25 | disposition home or self-care (01) ==
LOC: SDS 06:24
PROVIDERS: ATTEND Surgery
PROC: 0DBH8ZX Excision of Cecum, Via Natural or Artificial Opening Endoscopic, Diagnostic (ICD-10-PCS; principal; 2023-05-19 07:30)
DX: Z12.11 Encounter for screening for malignant neoplasm of colon (principal); K57.30 Diverticulosis of large intestine without perforation or abscess without bleeding; F17.200 Nicotine dependence, unspecified, uncomplicated; J44.9 Chronic obstructive pulmonary disease, unspecified; Z86.010 Personal history of colon polyps
CPT/HCPCS: 45385; A9270; J7120

== ENCOUNTER 2024-07-06 10:52 | Outpatient (CLI) | payer MEDICARE ==
--- NOTE | 2024-07-13 11:40 | Ultrasound Report ---
PROCEDURE: Aorta Screening INDICATIONS: AAA SCREENING TECHNIQUE: Real time scanning was performed of the aorta and iliac arteries, with image documentatio n. COMPARISON: None. FINDINGS: Aorta: Proximal aortic diameter measures 2.2 cm. Mid-aorta measures 2.1 cm. Distal aortic diameter is 1.9 cm. Iliac arteries: Right common iliac artery measures 1.0 cm. Left common iliac artery measures 1.0 cm . IMPRESSION: Moderate atherosclerotic plaque without evidence of aneurysm Recommended intervals for follow-up imaging of ectatic aortas and abdominal aortic aneurysms, per ACR consensus guidelines: 2.5-2.9 cm: 5 years 3.0-3.4 cm: 3 years 3.5-3.9 cm: 2 years 4.0-4.4 cm: 1 year 4.5-4.9 cm: 6 months + endovascular referral 5.0-5.5 cm: 3-6 months + endovascular referral Reviewed by: Gordo Saini MD on 07/13/2024 10:38 AM VERONICA Approved by: Gordo Saini MD on 07/13/2024 10:38 AM VERONICA Station ID: [id number]
== END 2024-07-06 10:53 | disposition home or self-care (01) ==
LOC: DI 10:52
PROVIDERS: ATTEND Nurse Practitioner Family
DX: Z13.6 Encounter for screening for cardiovascular disorders (principal); I70.0 Atherosclerosis of aorta

== ENCOUNTER 2025-08-26 09:14 | Inpatient (IN) ==
--- OUTSIDE RECORDS SUMMARY | 2025-08-26 09:25 | EXTERNAL MEDICAL SUMMARY RPT | Continuity of Care Document ---
Author Organization [facility] Address [address] [place] [id number] Phone Problems date description facility 2025-06-04 11:28 Malignant neoplasm o f upper lobe, right bronchus or lung [facility] 2025-06-04 11:28 Malignant neoplasm o f unspecified part of right bronchus or lung [facility] 2025-06-10 08:51 Malignant neoplasm o f unspecified part of right bronchus or lung [facility] 2025-06-10 09:09 Malignant neoplasm o f upper lobe, right bronchus or lung [facility] 2025-06-10 09:09 Malignant neoplasm o f unspecified part of right bronchus or lung [facility] 2025-06-10 09:10 Malignant neoplasm o f upper lobe, right bronchus or lung [facility] 2025-06-10 09:10 Malignant neoplasm o f unspecified part of right bronchus or lung [facility] 2025-06-10 09:25 Malignant neoplasm o f unspecified part of right bronchus or lung [facility] 2025-06-10 09:34 Malignant neoplasm o f upper lobe, right bronchus or lung [facility] 2025-06-10 09:34 Malignant neoplasm o f unspecified part of right bronchus or lung [facility] 2025-06-10 11:15 Malignant neoplasm o f upper lobe, right bronchus or lung [facility] 2025-06-10 11:15 Malignant neoplasm o f upper lobe, left bronchus or lung [facility] 2025-06-10 11:15 Malignant neoplasm o f right kidney, except renal pelvis [facility] 2025-06-10 11:15 Hypomagnesemia [facility] 2025-06-10 11:15 Encounter for genera l adult medical examination without abnormal findings [facility] 2025-06-10 11:15 Encounter for antineoplastic ch emotherapy [facility] 2025-06-10 11:22 Malignant neoplasm o f upper lobe, right bronchus or lung [facility] 2025-06-10 11:22 Malignant neoplasm o f unspecified part of right bronchus or lung [facility] 2025-06-10 11:24 Malignant neoplasm o f upper lobe, right bronchus or lung [facility] 2025-06-10 11:24 Malignant neoplasm o f unspecified part of right bronchus or lung [facility] 2025-06-10 12:20 Malignant neoplasm o f upper lobe, right bronchus or lung [facility] 2025-06-10 12:20 Malignant neoplasm o f unspecified part of right bronchus or lung [facility] 2025-06-11 00:03 Malignant neoplasm o f unspecified part of right bronchus or lung [facility] 2025-06-21 19:26 Acute and chronic re spiratory failure, unspecified whether with hypoxia or hypercapnia [facility] 2025-06-21 20:46 Malignant neoplasm o f upper lobe, left bronchus or lung [facility] 2025-06-21 20:46 Hypo-osmolality and hyponatremi a [facility] 2025-06-21 20:46 Pneumonia, unspecified organism [facility] 2025-06-21 20:46 Chronic obstructive pulmonary d isease, unspecified [facility] 2025-06-21 20:46 Acute and chronic re spiratory failure, unspecified whether with hypoxia or hypercapnia [facility] 2025-06-23 15:50 Malignant neoplasm o f upper lobe, left bronchus or lung [facility] 2025-06-23 15:50 Hypo-osmolality and hyponatremi a [facility] 2025-06-23 15:50 Pneumonia, unspecified organism [facility] 2025-06-23 15:50 Chronic obstructive pulmonary d isease, unspecified [facility] 2025-06-23 15:50 Acute and chronic re spiratory failure, unspecified whether with hypoxia or hypercapnia [facility] 2025-06-23 16:49 Malignant neoplasm o f upper lobe, left bronchus or lung [facility] 2025-06-23 16:49 Hypo-osmolality and hyponatremi a [facility] 2025-06-23 16:49 Pneumonia, unspecified organism [facility] 2025-06-23 16:49 Chronic obstructive pulmonary d isease, unspecified [facility] 2025-06-23 16:49 Acute and chronic re spiratory failure, unspecified whether with hypoxia or hypercapnia [facility] 2025-06-23 17:20 Malignant neoplasm o f upper lobe, left bronchus or lung [facility] 2025-06-23 17:20 Hypo-osmolality and hyponatremi a [facility] 2025-06-23 17:20 Pneumonia, unspecified organism [facility] 2025-06-23 17:20 Chronic obstructive pulmonary d isease, unspecified [facility] 2025-06-23 17:20 Acute and chronic re spiratory failure, unspecified whether with hypoxia or hypercapnia [facility] 2025-06-24 06:39 Malignant neoplasm o f upper lobe, left bronchus or lung [facility] 2025-06-24 06:39 Hypo-osmolality and hyponatremi a [facility] 2025-06-24 06:39 Pneumonia, unspecified organism [facility] 2025-06-24 06:39 Chronic obstructive pulmonary d isease, unspecified [facility] 2025-06-24 06:39 Acute and chronic re spiratory failure, unspecified whether with hypoxia or hypercapnia [facility] 2025-06-24 06:39 [facility]ness of breath [facility] 2025-06-24 06:58 Malignant neoplasm o f upper lobe, left bronchus or lung [facility] 2025-06-24 06:58 Hypo-osmolality and hyponatremi a [facility] 2025-06-24 06:58 Pneumonia, unspecified organism [facility] 2025-06-24 06:58 Chronic obstructive pulmonary d isease, unspecified [facility] 2025-06-24 06:58 Acute and chronic re spiratory failure, unspecified whether with hypoxia or hypercapnia [facility] 2025-06-24 06:58 [facility]ness of breath [facility]25-[facility]-24 08:05 Malignant neoplasm o f upper lobe, left bronchus or lung [facility] 2025-06-24 08:05 Hypo-osmolality and hyponatremi a [facility] 2025-06-24 08:05 Pneumonia, unspecified organism [facility] 2025-06-24 08:05 Chronic obstructive pulmonary d isease, unspecified [facility] 2025-06-24 08:05 Acute and chronic re spiratory failure, unspecified whether with hypoxia or hypercapnia [facility] 08:05 Shortness of breath [facility] 2025-06-24 11:20 Malignant neoplasm o f upper lobe, right bronchus or lung [facility] 2025-06-24 11:20 Malignant neoplasm o f unspecified part of right bronchus or lung [facility] 2025-06-24 11:20 Malignant neoplasm o f unspecified part of left bronchus or lung [facility] 2025-06-24 11:33 Malignant neoplasm o f upper lobe, right bronchus or lung [facility] 2025-06-24 11:33 Malignant neoplasm o f unspecified part of right bronchus or lung [facility] 2025-06-24 11:33 Malignant neoplasm o f unspecified part of left bronchus or lung [facility] 2025-06-24 12:47 Malignant neoplasm o f upper lobe, left bronchus or lung [facility] 2025-06-24 12:47 [facility]remi [facility] 12:47 Pneumonia, unspecified organism [facility] 2025-06-24 12:47 Chronic obstructive pulmonary d isease, unspecified [facility] 2025-06-24 12:47 Acute and chronic re spiratory failure, unspecified whether with hypoxia or hypercapnia [facility] 2025-06-24 12:47 Shortness of breath [facility] 2025-06-25 08:49 Malignant neoplasm o f upper lobe, right bronchus or lung [facility] 2025-06-25 08:49 Malignant neoplasm o f unspecified part of right bronchus or lung [facility] 2025-06-25 08:49 Malignant neoplasm o f unspecified part of left bronchus or lung [facility] 2025-06-25 09:27 Malignant neoplasm o f unspecified part of right bronchus or lung [facility] 2025-06-25 09:31 Malignant neoplasm o f upper lobe, right bronchus or lung [facility] 2025-06-25 09:31 Malignant neoplasm o f unspecified part of right bronchus or lung [facility] 2025-06-25 09:31 Malignant neoplasm o f unspecified part of left bronchus or lung [facility] 2025-06-27 12:33 Malignant neoplasm o f upper lobe, right bronchus or lung [facility] 2025-06-27 12:33 Moderate protein-calorie malnut [facility] 2025-06-27 12:33 Dehydration [facility] 2025-06-27 12:33 Dysthymic disorder [facility] 2025-06-27 12:33 Muscle weakness (generalized) [facility] 2025-06-27 12:33 Dyspnea, unspecified [facility] 2025-06-27 12:33 Encounter for palliative care [facility] 2025-06-27 14:25 Malignant neoplasm o f unspecified part of right bronchus or lung [facility] 2025-07-09 08:33 Encounter for palliative care [facility] 2025-07-09 08:34 Malignant neoplasm o f upper lobe, right bronchus or lung [facility] 2025-07-09 08:34 [facility]erate [facility]calorie [facility] 2025-07-09 08:34 Dysthymic disorder [facility] 2025-07-09 08:34 Other chronic pain [facility] 2025-07-09 08:34 Pain in left shoulder [facility] 2025-07-09 08:34 Muscle weakness (generalized) [facility] 2025-07-09 09:45 Malignant neoplasm o f unspecified part of right bronchus or lung [facility] 2025-07-10 00:04 Malignant neoplasm o f unspecified part of right bronchus or lung [facility] 2025-07-10 08:40 Malignant neoplasm o f upper lobe, right bronchus or lung [facility] 2025-07-10 08:40 Malignant neoplasm o f unspecified part of right bronchus or lung [facility] 2025-07-10 08:40 Malignant neoplasm o f unspecified part of left bronchus or lung [facility] 2025-07-10 08:50 Malignant neoplasm o f upper lobe, right bronchus or lung [facility] 2025-07-10 08:50 Malignant neoplasm o f unspecified part of right bronchus or lung [facility] 2025-07-10 08:50 Malignant neoplasm o f unspecified part of left bronchus or lung [facility] 2025-07-10 09:17 Malignant neoplasm o f upper lobe, right bronchus or lung [facility] 2025-07-10 09:17 Malignant neoplasm o f unspecified part of right bronchus or lung [facility] 2025-07-10 09:17 Malignant neoplasm o f unspecified part of left bronchus or lung [facility] 2025-07-10 09:18 Malignant neoplasm o f upper lobe, right bronchus or lung [facility] 2025-07-10 09:18 Malignant neoplasm o f unspecified part of right bronchus or lung [facility] 2025-07-10 09:18 Malignant neoplasm o f unspecified part of left bronchus or lung [facility] 2025-07-10 09:49 Malignant neoplasm o f upper lobe, right bronchus or lung [facility] 2025-07-10 09:49 Malignant neoplasm o f unspecified part of right bronchus or lung [facility] 2025-07-10 09:49 Malignant neoplasm o f unspecified part of left bronchus or lung [facility] 2025-07-10 10:52 Malignant neoplasm o f unspecified part of right bronchus or lung [facility] 2025-07-17 11:12 Shortness of breath [facility] 2025-07-26 10:10 Malignant neoplasm o f upper lobe, right bronchus or lung [facility] 2025-07-26 10:10 Malignant neoplasm o f unspecified part of right bronchus or lung [facility] 2025-07-26 10:10 Malignant neoplasm o f unspecified part of left bronchus or lung [facility] 2025-07-30 11:57 Malignant neoplasm o f unspecified part of right bronchus or lung [facility] 2025-07-31 00:04 Malignant neoplasm o f unspecified part of right bronchus or lung [facility] 2025-07-31 07:50 Malignant neoplasm o f upper lobe, right bronchus or lung [facility] 2025-07-31 07:50 Malignant neoplasm o f unspecified part of right bronchus or lung [facility] 2025-07-31 07:50 Malignant neoplasm o f unspecified part of left bronchus or lung [facility] 2025-07-31 09:20 Malignant neoplasm o f upper lobe, right bronchus or lung [facility] 2025-07-31 09:20 Malignant neoplasm o f unspecified part of right bronchus or lung [facility] 2025-07-31 09:20 Malignant neoplasm o f unspecified part of left bronchus or lung [facility] 2025-07-31 09:31 Malignant neoplasm o f unspecified part of right bronchus or lung [facility] 2025-07-31 09:38 Malignant neoplasm o f upper lobe, right bronchus or lung [facility] 2025-07-31 09:38 Malignant neoplasm o f unspecified part of right bronchus or lung [facility] 2025-07-31 09:38 Malignant neoplasm o f unspecified part of left bronchus or lung [facility] 2025-07-31 10:22 Malignant neoplasm o f upper lobe, right bronchus or lung [facility] 2025-07-31 10:22 Malignant neoplasm o f unspecified part of right bronchus or lung [facility] 2025-07-31 10:22 Malignant neoplasm o f unspecified part of left bronchus or lung [facility] 2025-07-31 10:32 Malignant neoplasm o f upper lobe, right bronchus or lung [facility] 2025-07-31 10:32 Malignant neoplasm o f unspecified part of right bronchus or lung [facility] 2025-07-31 10:32 Malignant neoplasm o f unspecified part of left bronchus or lung [facility] 2025-07-31 11:51 Malignant neoplasm o f unspecified part of right bronchus or lung [facility] 2025-08-05 12:28 Malignant neoplasm o f unspecified part of right bronchus or lung [facility] 2025-08-05 12:29 Pain in left hip [facility] 2025-08-05 12:31 Pain in left hip [facility] 2025-08-06 00:03 Pain in left hip [facility] 2025-08-06 00:04 Malignant neoplasm o f unspecified part of right bronchus or lung [facility] 2025-08-06 07:44 Malignant neoplasm o f upper lobe, right bronchus or lung [facility] 2025-08-06 07:44 Malignant neoplasm o f unspecified part of right bronchus or lung [facility] 2025-08-06 07:44 Malignant neoplasm o f unspecified part of left bronchus or lung [facility] 2025-08-06 08:55 Malignant neoplasm o f upper lobe, right bronchus or lung [facility] 2025-08-06 08:55 Malignant neoplasm o f unspecified part of right bronchus or lung [facility] 2025-08-06 08:55 Malignant neoplasm o f unspecified part of left bronchus or lung [facility] 2025-08-06 08:56 Malignant neoplasm o f upper lobe, right bronchus or lung [facility] 2025-08-06 08:56 Malignant neoplasm o f unspecified part of right bronchus or lung [facility] 2025-08-06 08:56 Malignant neoplasm o f unspecified part of left bronchus or lung [facility] 2025-08-06 09:07 Malignant neoplasm o f upper lobe, right bronchus or lung [facility] 2025-08-06 09:07 Malignant neoplasm o f unspecified part of right bronchus or lung [facility] 2025-08-06 09:07 Malignant neoplasm o f unspecified part of left bronchus or lung [facility] 2025-08-06 10:38 Malignant neoplasm o f upper lobe, right bronchus or lung [facility] 2025-08-06 10:38 Malignant neoplasm o f unspecified part of right bronchus or lung [facility] 2025-08-06 10:38 Malignant neoplasm o f unspecified part of left bronchus or lung [facility] 2025-08-06 15:44 Malignant neoplasm o f unspecified part of right bronchus or lung [facility] 2025-08-06 15:44 Pain in left hip [facility] 2025-08-07 10:36 Malignant neoplasm o f upper lobe, right bronchus or lung [facility] 2025-08-07 10:36 Moderate protein-calorie malnut rition [facility] 2025-08-07 10:36 Pneumonia, unspecified organism [facility] 2025-08-07 10:36 Pain in left hip [facility] 2025-08-07 10:36 Muscle weakness (generalized) [facility] 2025-08-07 10:36 Encounter for palliative care [facility] 2025-08-09 06:22 Fracture of superior rim of left pubis, initial encounter for closed fracture [facility] 2025-08-13 11:10 Fracture of superior rim of left pubis, initial encounter for closed fracture [facility] 2025-08-16 11:11 Fracture of superior rim of left pubis, initial encounter for closed fracture [facility] 2025-08-16 11:41 Fracture of superior rim of left pubis, initial encounter for closed fracture [facility] 2025-08-20 15:31 Fracture of superior rim of left pubis, initial encounter for closed fracture [facility] Results/Labs test date facility value unit notes Result panel 1 NUCLEATED RED BLOOD CELLS AUTO 2025-06-10 09:05 [facility] 0.0 /100wbc (missing) BASOPHILS # (AUTO) 2025-06-10 09:05 [facility] 0.0 10 3/ul (missing) EOSINOPHILS # (AUTO) 2025-06-10 09:05 [facility] 0.0 10 3/ul (missing) NRBC ABSOLUTE COUNT (AUTO) 2025-06-10 09:05 [facility] 0.00 x10 3/ul (missing) BILIRUBIN,TOTAL 2025-06-10 09:05 [facility] 0.4 mg/dl As of May 2023 testing method has changed, this may include reference ranges. MONOCYTES # (AUTO) 2025-06-10 09:05 [facility] 0.7 10 3/ul (missing) ALBUMIN/GLOBULIN RATIO 2025-06-10 09:05 [facility] 1.1 (missing) (missing) LYMPHOCYTES # (AUTO) 2025-06-10 09:05 [facility] 1.1 10 3/ul (missing) CREATININE 2025-06-10 09:05 [facility] 1.1 mg/dl As of May 2023 testing method has changed, this may include reference ranges. MAGNESIUM 2025-06-10 09:05 [facility] 1.3 mg/dl As of May 2023 testing method has changed, this may include reference ranges. MEAN CORPUSCULAR VOLUME 2025-06-10 09:05 [facility] 101.1 fl (missing) GLUCOSE 2025-06-10 09:05 [facility] 118 mg/dl As of May 2023 testing method has changed, this may include reference ranges. ALT ALANINE AMINOTRANSFERASE 2025-06-10 09:05 [facility] 13 iu/l As of May 2023 testing method has changed, this may include reference ranges. RED CELL DISTRIBUTION WIDTH 2025-06-10 09:05 [facility] 13.5 % (missing) SODIUM 2025-06-10 09:05 [facility] 130 mmol/l Unknown AST ASPARTATE AMINOTRANSFERASE 2025-06-10 09:05 [facility] 15 iu/l As of May 2023 testing method has changed, this may include reference ranges. RED BLOOD COUNT 2025-06-10 09:05 [facility] 2.83 10 6/ul (missing) PLT - PLATELET COUNT 2025-06-10 09:05 [facility] 266 10 3/ul (missing) HCT - HEMATOCRIT 2025-06-10 09:05 [facility] 28.6 % (missing) GLOBULIN 2025-06-10 09:05 [facility] 3.3 g/dl (missing) ALBUMIN 2025-06-10 09:05 [facility] 3.5 g/dl As of May 2023 testing method has changed, this may include reference ranges. POTASSIUM 2025-06-10 09:05 [facility] 3.9 mmol/l As of May 2023 testing method has changed, this may include reference ranges. CARBON DIOXIDE - CO2 2025-06-10 09:05 [facility] 30 mmol/l As of May 2023 testing method has changed, this may include reference ranges. MEAN CORPUSCULAR HGB CONC 2025-06-10 09:05 [facility] 34.3 g/dl (missing) MEAN CORPUSCULAR HEMOGLOBIN 2025-06-10 09:05 [facility] 34.6 pg (missing) NEUTROPHILS # (AUTO) 2025-06-10 09:05 [facility] 4.4 10 3/ul (missing) ANION GAP 2025-06-10 09:05 [facility] 5.0 (missing) (missing) ALKALINE PHOSPHATASE 2025-06-10 09:05 [facility] 51 iu/l As of May 2023 testing method has changed, this may include reference ranges. WHITE BLOOD COUNT 2025-06-10 09:05 [facility] 6.2 x10 3/ul (missing) TOTAL PROTEIN 2025-06-10 09:05 [facility] 6.8 g/dl As of May 2023 testing method has changed, this may include reference ranges. GFR - MDRD 2025-06-10 09:05 [facility] 65 (missing) The IDMS-traceable MDRD Study Equation has been validated extensively in and populations between the ages of 18 and 70 with impaired kidney function (eGFR < 60 mL/min/1.73m2) and has shown good performance for patients with all common causes of kidney disease. Although this equation has not been validated for patients older than 70, an MDRD-derived eGFR may still be a useful tool for providers caring for patients older than 70. References: http://www.nkdep. nih.gov/lab-evalu ation/gfr/creatin ine-stand ardization, last updated January 2012. BUN - BLOOD UREA NITROGEN 2025-06-10 09:05 [facility] 7 mg/dl As of May 2023 testing method has changed, this may include reference ranges. MEAN PLATELET VOLUME 2025-06-10 09:05 [facility] 8.8 fl (missing) CALCIUM 2025-06-10 09:05 [facility] 9.2 mg/dl As of May 2023 testing method has changed, this may include reference ranges. HGB - HEMOGLOBIN 2025-06-10 09:05 [facility] 9.8 g/dl (missing) CHLORIDE 2025-06-10 09:05 [facility] 95 mmol/l As of May 2023 testing method has changed, this may include reference ranges. Result panel 2 NUCLEATED RED BLOOD CELLS AUTO 2025-06-21 17:10 [facility] 0.0 /100wbc (missing) BASOPHILS # (AUTO) 2025-06-21 17:10 [facility] 0.0 10 3/ul (missing) EOSINOPHILS # (AUTO) 2025-06-21 17:10 [facility] 0.0 10 3/ul (missing) NRBC ABSOLUTE COUNT (AUTO) 2025-06-21 17:10 [facility] 0.00 x10 3/ul (missing) MONOCYTES # (AUTO) 2025-06-21 17:10 [facility] 0.3 10 3/ul (missing) PROCALCITONIN 2025-06-21 17:10 [facility] 0.43 ng/ml PCT Concentration (ng/mL) Children >72hrs old and Adults Interpretation ======== ========= <0.5 Low risk of severe sepsis and/or septic shock >2.0 High risk of severe sepsis and/or septic shock Concentrations under 0.5 ng/mL do not exclude local infections or systemic infections in their initial stages (e.g. under six hours from onset of illness). PCT concentrations between 0.5 and 2.0 ng/mL should be interpreted with consideration of the patient's history. In this range, it is recommended to retest PCT within 6 to 24hours. ALBUMIN/GLOBULIN RATIO 2025-06-21 17:10 [facility] 0.8 (missing) (missing) LYMPHOCYTES # (AUTO) 2025-06-21 17:10 [facility] 0.9 10 3/ul (missing) CREATININE 2025-06-21 17:10 [facility] 1.0 mg/dl As of May 2023 testing method has changed, this may include reference ranges. BILIRUBIN,TOTAL 2025-06-21 17:10 [facility] 1.1 mg/dl As of May 2023 testing method has changed, this may include reference ranges. LACTIC ACID, VENOUS 2025-06-21 17:10 [facility] 1.3 mmol/l N As of May 2023 testing method has changed, this may include reference ranges. NEUTROPHILS # (AUTO) 2025-06-21 17:10 [facility] 1.4 10 3/ul (missing) MEAN PLATELET VOLUME 2025-06-21 17:10 [facility] 10.2 fl (missing) MEAN CORPUSCULAR VOLUME 2025-06-21 17:10 [facility] 100.4 fl (missing) ANION GAP 2025-06-21 17:10 [facility] 11.0 (missing) (missing) SODIUM 2025-06-21 17:10 [facility] 128 mmol/l (missing) RED CELL DISTRIBUTION WIDTH 2025-06-21 17:10 [facility] 13.4 % (missing) WHITE BLOOD COUNT 2025-06-21 17:10 [facility] 2.5 x10 3/ul (missing) RED BLOOD COUNT 2025-06-21 17:10 [facility] 2.61 10 6/ul (missing) BUN - BLOOD UREA NITROGEN 2025-06-21 17:10 [facility] 22 mg/dl As of May 2023 testing method has changed, this may include reference ranges. CARBON DIOXIDE - CO2 2025-06-21 17:10 [facility] 25 mmol/l As of May 2023 testing method has changed, this may include reference ranges. ALT ALANINE AMINOTRANSFERASE 2025-06-21 17:10 [facility] 26 iu/l As of May 2023 testing method has changed, this may include reference ranges. HCT - HEMATOCRIT 2025-06-21 17:10 [facility] 26.2 % (missing) ALBUMIN 2025-06-21 17: [facility] 3.5 g/dl As of May 2023 testing method has changed, this may include reference ranges. POTASSIUM 2025-06-21 17:10 [facility] 3.7 mmol/l As of May 2023 testing method has changed, this may include reference ranges. AST ASPARTATE AMINOTRANSFERASE 2025-06-21 17:10 [facility] 31 iu/l As of May 2023 testing method has changed, this may include reference ranges. MEAN CORPUSCULAR HGB CONC 2025-06-21 17:10 [facility] 34.7 g/dl (missing) MEAN CORPUSCULAR HEMOGLOBIN 2025-06-21 17:10 [facility] 34.9 pg (missing) GLOBULIN 2025-06-21 17:10 [facility] 4.2 g/dl (missing) PLT - PLATELET COUNT 2025-06-21 17:10 [facility] 59 10 3/ul (missing) ALKALINE PHOSPHATASE 2025-06-21 17:10 [facility] 65 iu/l As of May 2023 testing method has changed, this may include reference ranges. TOTAL PROTEIN 2025-06-21 17:10 [facility] 7.7 g/dl As of May 2023 testing method has changed, this may include reference ranges. GFR - MDRD 2025-06-21 17:10 [facility] 73 (missing) The IDMS-traceable MDRD Study Equation has been validated extensively in and populations between the ages of 18 and 70 with impaired kidney function (eGFR < 60 mL/min/1.73m2) and has shown good performance for patients with all common causes of kidney disease. Although this equation has not been validated for patients older than 70, an MDRD-derived eGFR may still be a useful tool for providers caring for patients older than 70. References: http://www.nkdep. nih.gov/lab-evalu ation/gfr/creatin ine-stand ardization, last updated January 2012. HGB - HEMOGLOBIN 2025-06-21 17:10 [facility] 9.1 g/dl (missing) CALCIUM 2025-06-21 17:10 [facility] 9.6 mg/dl As of May 2023 testing method has changed, this may include reference ranges. CHLORIDE 2025-06-21 17:10 [facility] 92 mmol/l As of May 2023 testing method has changed, this may include reference ranges. GLUCOSE 2025-06-21 17:10 [facility] 99 mg/dl As of May 2023 testing method has changed, this may include reference ranges. PLATELET ESTIMATE, MANUAL 2025-06-21 17:10 [facility] DECREASED (<130,000) (missing) (missing) SLIDE REVIEW? 2025-06-21 17:10 [facility] Indicated (missing) (missing) DIFFERENTIAL COMMENT 2025-06-21 17:10 [facility] MANUAL=AUTO DIFF (missing) MANUAL DIFFERENTIAL AGREES WITH AUTO DIFFERENTIAL PLATELET MORPHOLOGY 2025-06-21 17:10 [facility] NORMAL APPEARANCE (missing) (missing) RBC MORPHOLOGY (MULTIPLE) 2025-06-21 17:10 [facility] NORMAL APPEARANCE (missing) (missing) Result panel 3 SARS-CoV-2 -RESP PCR PANEL 2025-06-21 18:58 [facility] NOT DETECTED (missing) A negative test result for this test indicates that SARS-CoV-2 RNA was not present in the specimen above the limit of detection. Testing performed on the [employer] RP2.1 Panel, a multiplexed nucleic acid repiratory panel. Negative results do not preclude infection with SARS-CoV-2 virus and should not be the sole basis of a patient management decision. In some patients repeat testing at various time points may be necessary for virus detection. False-negative results may arise from improper sample collection, degradation of viral RNA during shipping or storage, the presence of PCR inhibitors, and/or mutation in the SARS-CoV-2 virus. INFLUENZA A- RESP PCR PANEL 2025-06-21 18:58 [facility] NOT DETECTED (missing) Influenza A including subtypes H1, H3, and H1-2009 not detected by the [employer] RP2.1 Panel, a multiplexed nucleic acid test intended for the simultaneous qualitative detection and differentiation of nucleic acids from multiple viral and bacterial respiratory organisms. B. PARAPERTUSSIS- RESP PCR URBANO 2025-06-21 18:58 [facility] NOT DETECTED (missing) Negative results for this organism do not preclude infection with this organism and may require additional laboratory testing (e.g., bacterial and viral culture, immunofluorescence, and radiography) when evaluating a patient with possible respiratory tract infection. B. PERTUSSIS- RESP PCR PANEL 2025-06-21 18:58 [facility] NOT DETECTED (missing) Negative results for this organism do not preclude infection with this organism and may require additional laboratory testing (e.g., bacterial and viral culture, immunofluorescence, and radiography) when evaluating a patient with possible respiratory tract infection. C. PNEUMONIAE- RESP PCR PANEL 2025-06-21 18:58 [facility] NOT DETECTED (missing) Negative results for this organism do not preclude infection with this organism and may require additional laboratory testing (e.g., bacterial and viral culture, immunofluorescence, and radiography) when evaluating a patient with possible respiratory tract infection. M. PNEUMONIAE- RESP PCR PANEL 2025-06-21 18:58 [facility] NOT DETECTED (missing) Negative results for this organism do not preclude infection with this organism and may require additional laboratory testing (e.g., bacterial and viral culture, immunofluorescence, and radiography) when evaluating a patient with possible respiratory tract infection. ADENOVIRUS - RESP PCR PANEL 2025-06-21 18:58 [facility] NOT DETECTED (missing) Negative results in the setting ofa respiratory illness may be due to infection with pathogens not detected by this test, or lower respiratory tract infection that may not be detected by nasopharyngeal specimen. CORONAVIRUS 229E-RESP PCR 2025-06-21 18:58 [facility] NOT DETECTED (missing) Negative results in the setting ofa respiratory illness may be due to infection with pathogens not detected by this test, or lower respiratory tract infection that may not be detected by nasopharyngeal specimen. CORONAVIRUS HKU1-RESP PCR 2025-06-21 18:58 [facility] NOT DETECTED (missing) Negative results in the setting ofa respiratory illness may be due to infection with pathogens not detected by this test, or lower respiratory tract infection that may not be detected by nasopharyngeal specimen. CORONAVIRUS IZ27-CCTC PCR 2025-06-21 18:58 [facility] NOT DETECTED (missing) Negative results in the setting ofa respiratory illness may be due to infection with pathogens not detected by this test, or lower respiratory tract infection that may not be detected by nasopharyngeal specimen. CORONAVIRUS [id number]-FSBT PCR 2025-06-21 18:58 [facility] NOT DETECTED (missing) Negative results in the setting ofa respiratory illness may be due to infection with pathogens not detected by this test, or lower respiratory tract infection that may not be detected by nasopharyngeal specimen. HUMAN METAPNEUMOVIRUS 2025-06-21 18:58 [facility] NOT DETECTED (missing) Negative results in the setting ofa respiratory illness may be due to infection with pathogens not detected by this test, or lower respiratory tract infection that may not be detected by nasopharyngeal specimen. INFLUENZA B - RESP PCR PANEL 2025-06-21 18:58 [facility] NOT DETECTED (missing) Negative results in the setting ofa respiratory illness may be due to infection with pathogens not detected by this test, or lower respiratory tract infection that may not be detected by nasopharyngeal specimen. PARAINFLUENZA VIRUS 1 2025-06-21 18:58 [facility] NOT DETECTED (missing) Negative results in the setting ofa respiratory illness may be due to infection with pathogens not detected by this test, or lower respiratory tract infection that may not be detected by nasopharyngeal specimen. PARAINFLUENZA VIRUS 2 2025-06-21 18:58 [facility] NOT DETECTED (missing) Negative results in the setting ofa respiratory illness may be due to infection with pathogens not detected by this test, or lower respiratory tract infection that may not be detected by nasopharyngeal specimen. PARAINFLUENZA VIRUS 3 2025-06-21 18:58 [facility] NOT DETECTED (missing) Negative results in the setting ofa respiratory illness may be due to infection with pathogens not detected by this test, or lower respiratory tract infection that may not be detected by nasopharyngeal specimen. PARAINFLUENZA VIRUS 4 2025-06-21 18:58 [facility] NOT DETECTED (missing) Negative results in the setting ofa respiratory illness may be due to infection with pathogens not detected by this test, or lower respiratory tract infection that may not be detected by nasopharyngeal specimen. RHINOVIRUS/ENTEROVI HORTENCIA 2025-06-21 18:58 [facility] NOT DETECTED (missing) Negative results in the setting ofa respiratory illness may be due to infection with pathogens not detected by this test, or lower respiratory tract infection that may not be detected by nasopharyngeal specimen. RSV- RESP PCR PANEL 2025-06-21 18:58 [facility] NOT DETECTED (missing) Negative results in the setting ofa respiratory illness may be due to infection with pathogens not detected by this test, or lower respiratory tract infection that may not be detected by nasopharyngeal specimen. Result panel 4 SODIUM 2025-06-21 22:06 [facility] 130 mmol/l (missing) Result panel 5 NUCLEATED RED BLOOD CELLS AUTO 2025-06-22 04:55 [facility] 0.0 /100wbc (missing) BASOPHILS # (AUTO) 2025-06-22 04:55 [facility] 0.0 10 3/ul (missing) EOSINOPHILS # (AUTO) 2025-06-22 04:55 [facility] 0.0 10 3/ul (missing) NRBC ABSOLUTE COUNT (AUTO) 2025-06-22 04:55 [facility] 0.00 x10 3/ul (missing) MONOCYTES # (AUTO) 2025-06-22 04:55 [facility] 0.1 10 3/ul (missing) LYMPHOCYTES # (AUTO) 2025-06-22 04:55 [facility] 0.2 10 3/ul (missing) NEUTROPHILS # (AUTO) 2025-06-22 04:55 [facility] 0.7 10 3/ul (missing) CREATININE 2025-06-22 04:55 [facility] 1.0 mg/dl As of May 2023 testing method has changed, this may include reference ranges. WHITE BLOOD COUNT 2025-06-22 04:55 [facility] 1.0 x10 3/ul Called to [place] / EDGAR Thibodeaux RN by Shani Padgett at 0607 06/22/25. Read back(Y/N)?Y MEAN PLATELET VOLUME 2025-06-22 04:55 [facility] 10.9 fl (missing) MEAN CORPUSCULAR VOLUME 2025-06-22 04:55 [facility] 100.0 fl (missing) SODIUM 2025-06-22 04:55 [facility] 129 mmol/l (missing) RED CELL DISTRIBUTION WIDTH 2025-06-22 04:55 [facility] 13.1 % (missing) GLUCOSE 2025-06-22 04:55 [facility] 152 mg/dl As of May 2023 testing method has changed, this may include reference ranges. RED BLOOD COUNT 2025-06-22 04:55 [facility] 2.31 10 6/ul (missing) BUN - BLOOD UREA NITROGEN 2025-06-22 04:55 [facility] 23 [facility] As of May 2023 testing method has changed, this may include reference ranges. HCT - HEMATOCRIT 2025-06-22 04:55 [facility] 23.1 % (missing) CARBON DIOXIDE - CO2 2025-06-22 04:55 [facility] 25 mmol/l As of May 2023 testing method has changed, this may include reference ranges. MEAN CORPUSCULAR HGB CONC 2025-06-22 04:55 [facility] 34.6 g/dl (missing) MEAN CORPUSCULAR HEMOGLOBIN 2025-06-22 04:55 [facility] 34.6 pg (missing) POTASSIUM 2025-06-22 04:55 [facility] 4.2 mmol/l As of May 2023 testing method has changed, this may include reference ranges. PLT - PLATELET COUNT 2025-06-22 04:55 [facility] 45 10 3/ul (missing) GFR - MDRD 2025-06-22 04:55 [facility] 73 (missing) The IDMS-traceable MDRD Study Equation has been validated extensively in and populations between the ages of 18 and 70 with impaired kidney function (eGFR < 60 mL/min/1.73m2) and has shown good performance for patients with all common causes of kidney disease. Although this equation has not been validated for patients older than 70, an MDRD-derived eGFR may still be a useful tool for providers caring for patients older than 70. References: http://www.nkdep .nih.gov/lab-chema luation/gfr/crea tinine-stand ardization, last updated January 2012. ANION GAP 2025-06-22 04:55 [facility] 8.0 (missing) (missing) HGB - HEMOGLOBIN 2025-06-22 04:55 [facility] 8.0 g/dl (missing) CALCIUM 2025-06-22 04:55 [facility] 8.6 mg/dl As of May 2023 testing method has changed, this may include reference ranges. CHLORIDE 2025-06-22 04:55 [facility] 96 mmol/l As of May 2023 testing method has changed, this may include reference ranges. PLATELET ESTIMATE, MANUAL 2025-06-22 04:55 [facility] DECREASED (<130,000) (missing) (missing) DIFFERENTIAL COMMENT 2025-06-22 04:55 [facility] MANUAL=AUTO DIFF (missing) MANUAL DIFFERENTIAL AGREES WITH AUTO DIFFERENTIAL PLATELET MORPHOLOGY 2025-06-22 04:55 [facility] NORMAL APPEARANCE (missing) (missing) RBC MORPHOLOGY (MULTIPLE) 2025-06-22 04:55 [facility] NORMAL APPEARANCE (missing) (missing) WBC MORPHOLOGY (MULTIPLE) 2025-06-22 04:55 [facility] NORMAL APPEARANCE (missing) (missing) Result panel 6 SODIUM 2025-06-22 12:59 [facility] 130 mmol/l (missing) Result panel 7 NUCLEATED RED BLOOD CELLS AUTO 2025-06-23 04:17 [facility] 0.0 /100wbc (missing) BASOPHILS # (AUTO) 2025-06-23 04:17 [facility] 0.0 10 3/ul (missing) EOSINOPHILS # (AUTO) 2025-06-23 04:17 [facility] 0.0 10 3/ul (missing) NRBC ABSOLUTE COUNT (AUTO) 2025-06-23 04:17 [facility] 0.00 x10 3/ul (missing) MONOCYTES # (AUTO) 2025-06-23 04:17 [facility] 0.3 10 3/ul (missing) LYMPHOCYTES # (AUTO) 2025-06-23 04:17 [facility] 0.4 10 3/ul (missing) CREATININE 2025-06-23 04:17 [facility] 0.9 mg/dl As of May 2023 testing method has changed, this may include reference ranges. NEUTROPHILS # (AUTO) 2025-06-23 04:17 [facility] 1.0 10 3/ul (missing) WHITE BLOOD COUNT 2025-06-23 04:17 [facility] 1.7 x10 3/ul Called to / EDGAR Thibodeaux RN by Shani Padgett at 0509 06/23/25. Read back(Y/N)?Y MEAN PLATELET VOLUME 2025-06-23 04:17 [facility] 11.2 fl (missing) RED CELL DISTRIBUTION WIDTH 2025-06-23 04:17 [facility] 13.0 % (missing) SODIUM 2025-06-23 04:17 [facility] 130 mmol/l (missing) GLUCOSE 2025-06-23 04:17 [facility] 134 mg/dl As of May 2023 testing method has changed, this may include reference ranges. RED BLOOD COUNT 2025-06-23 04:17 [facility] 2.09 10 6/ul (missing) HCT - HEMATOCRIT 2025-06-23 04:17 [facility] 20.5 % (missing) BUN - BLOOD UREA NITROGEN 2025-06-23:17 [facility] 23 mg/dl As of May 2023 testing method has changed, this may include reference ranges. CARBON DIOXIDE - CO2 2025-06-23:17 [facility] 23 mmol/l As of May 2023 testing method has changed, this may include reference ranges. POTASSIUM 2025-06-23: [facility] 3.7 mmol/l As of May 2023 testing method has changed, this may include reference ranges. MEAN CORPUSCULAR HEMOGLOBIN 2025-06-23:17 [facility] 33.5 pg (missing) MEAN CORPUSCULAR HGB CONC 2025-06-23 04:17 [facility] 34.1 g/dl (missing) PLT - PLATELET COUNT 2025-06-23 04:17 [facility] 37 10 3/ul (missing) HGB - HEMOGLOBIN 2025-06-23 04:17 [facility] 7.0 g/dl Called to [facility] / EDGAR Thibodeaux RN by Shani Padgett at 0509 06/23/25. Read back(Y/N)?Y ANION GAP 2025-06-23:17 [facility] 8.0 (missing) (missing) CALCIUM 2025-06-23:17 [facility] 8.4 mg/dl As of May 2023 testing method has changed, this may include reference ranges. GFR - MDRD 2025-06-23 04:17 [facility] 82 (missing) The IDMS-traceable MDRD Study Equation has been validated extensively in and populations between the ages of 18 and 70 with impaired kidney function (eGFR < 60 mL/min/1.73m2) and has shown good performance for patients with all common causes of kidney disease. Although this equation has not been validated for patients older than 70, an MDRD-derived eGFR may still be a useful tool for providers caring for patients older than 70. References: http://www.nkdep .nih.gov/lab-chema luation/gfr/jareth buchanan-ashly ardization, last updated January 2012. MEAN CORPUSCULAR VOLUME 2025-06-23 04:17 [facility] 98.1 fl (missing) CHLORIDE 2025-06-23 04:17 [facility] 99 mmol/l As of May 2023 testing method has changed, this may include reference ranges. PLATELET ESTIMATE, MANUAL 2025-06-23 04:17 [facility] DECREASED (<130,000) (missing) (missing) DIFFERENTIAL COMMENT 2025-06-23 04:17 [facility] MANUAL=AUTO DIFF (missing) MANUAL DIFFERENTIAL AGREES WITH AUTO DIFFERENTIAL PLATELET MORPHOLOGY 2025-06-23 04:17 [facility] NORMAL APPEARANCE (missing) (missing) RBC MORPHOLOGY (MULTIPLE) 2025-06-23 04:17 [facility] NORMAL APPEARANCE (missing) (missing) WBC MORPHOLOGY (MULTIPLE) 2025-06-23 04:17 [facility] NORMAL APPEARANCE (missing) (missing) Result panel 8 ABNORMAL LYMPHS % (MANUAL) 2025-06-23 13:55 [facility] 0 % (missing) BASOPHILS # (MANUAL) 2025-06-23 13:55 [facility] 0.0 10 3/ul (missing) EOSINOPHILS # (MANUAL) 2025-06-23 13:55 [facility] 0.0 10 3/ul (missing) MONOCYTES # (MANUAL) 2025-06-23 13:55 [facility] 0.1 10 3/ul (missing) LYMPHOCYTES # (MANUAL) 2025-06-23 13:55 [facility] 0.3 10 3/ul (missing) NEUTROPHILS # (MANUAL) 2025-06-23 13:55 [facility] 0.9 10 3/ul (missing) RBC MORPHOLOGY (MULTIPLE) 2025-06-23 13:55 [facility] 1+ POIKILOCYTOSIS (manjinder ng) (missing) WHITE BLOOD COUNT 2025-06-23 13:55 [facility] 1.3 x10 3/ul Called to Annia Berry RN MS2 by Sunday Musa MLS([facility]) at 1417 06/23/25. Read back(Y/N)?Y MEAN CORPUSCULAR VOLUME 2025-06-23 13:55 [facility] 100.9 fl (missing) MEAN PLATELET VOLUME 2025-06-23 13:55 [facility] 11.0 fl (missing) RED CELL DISTRIBUTION WIDTH 2025-06-23 13:55 [facility] 13.3 % (missing) RED BLOOD COUNT 2025-06-23 13:55 [facility] 2.29 10 6/ul (missing) HCT - HEMATOCRIT 2025-06-23 13:55 [facility] 23.1 % (missing) MEAN CORPUSCULAR HGB CONC 2025-06-23 13:55 [facility] 33.8 g/dl (missing) MEAN CORPUSCULAR HEMOGLOBIN 2025-06-23 13:55 [facility] 34.1 pg (missing) PLT - PLATELET COUNT 2025-06-23 13:55 [facility] 35 10 3/ul Called to Annia Berry RN MS2 by Sunday Musa MLS([facility]) at 1417 06/23/25. Read back(Y/N)?Y BAND NEUTROPHILS % (MANUAL) 2025-06-23 13:55 [facility] 4 % (missing) TOTAL CELLS COUNTED 2025-06-23 13:55 [facility] 50 (manjinder ng) A manual differential was performed on a cell count of <100 cells. HGB - HEMOGLOBIN 2025-06-23 13:55 [facility] 7.8 g/dl (missing) PLATELET ESTIMATE, MANUAL 2025-06-23 13:55 [facility] DECREASED (<130,000) (manjinder ng) (missing) SLIDE REVIEW? 2025-06-23 13:55 [facility] Indicated (manjinder ng) (missing) DIFFERENTIAL COMMENT 2025-06-23 13:55 [facility] MANUAL DIFFERENTIAL (manjinder ng) (missing) PLATELET MORPHOLOGY 2025-06-23 13:55 [facility] NORMAL APPEARANCE (manjinder ng) (missing) WBC MORPHOLOGY (MULTIPLE) 2025-06-23 13:55 [facility] NORMAL APPEARANCE (manjinder ng) (missing) Result panel 9 ABNORMAL LYMPHS % (MANUAL) 2025-06-25 09:55 [facility] 0 % (missing) BAND NEUTROPHILS % (MANUAL) 2025-06-25 09:55 [facility] 0 % (missing) BASOPHILS # (MANUAL) 2025-06-25 09:55 [facility] 0.0 10 3/ul (missing) EOSINOPHILS # (MANUAL) 2025-06-25 09:55 [facility] 0.0 10 3/ul (missing) BILIRUBIN,TOTAL 2025-06-25 09:55 [facility] 0.4 mg/dl As of May 2023 testing method has changed, this may include reference ranges. MONOCYTES # (MANUAL) 2025-06-25 09:55 [facility] 0.6 10 3/ul (missing) LYMPHOCYTES # (MANUAL) 2025-06-25 09:55 [facility] 0.6 10 3/ul (missing) NEUTROPHILS # (MANUAL) 2025-06-25 09:55 [facility] 0.6 10 3/ul Called to [place] by Leonardo Brower M.T.([facility]) at 1055 06/25/25. Read back(Y/N)? Y ALBUMIN/GLOBULIN RATIO 2025-06-25 09:55 [facility] 0.9 (manjinder ) (missing) CREATININE 2025-06-25 09:55 [facility] 1.2 mg/dl As of May 2023 testing method has changed, this may include reference ranges. MAGNESIUM 2025-06-25 09:55 [facility] 1.3 mg/dl As of May 2023 testing method has changed, this may include reference ranges. WHITE BLOOD COUNT 2025-06-25 09:55 [facility] 1.8 x10 3/ul Called to [place] by Leonardo Brower M.T.([facility]) at 1029 06/25/25. Read back(Y/N)? Y MEAN CORPUSCULAR VOLUME 2025-06-25 09:55 [facility] 100.8 fl (missing) MEAN PLATELET VOLUME 2025-06-25 09:55 [facility] 11.0 fl (missing) RED CELL DISTRIBUTION WIDTH 2025-06-25 09:55 [facility] 13.5 % (missing) SODIUM 2025-06-25 09:55 [facility] 133 mmol/l Unknown BUN - BLOOD UREA NITROGEN 2025-06-25 09:55 [facility] 15 mg/dl As of May 2023 testing method has changed, this may include reference ranges. RBC MORPHOLOGY (MULTIPLE) 2025-06-25 09:55 [facility] 2+ ANISOCYTOSIS ([facility]) (missing) RED BLOOD COUNT 2025-06-25 09:55 [facility] 2.39 10 6/ul (missing) HCT - HEMATOCRIT 2025-06-25 09:55 [facility] 24.1 % (missing) CARBON DIOXIDE - CO2 2025-06-25 09:55 [facility] 26 mmol/l As of May 2023 testing method has changed, this may include reference ranges. ALBUMIN 2025-06-25 09:55 [facility] 3.3 g/dl As of May 2023 testing method has changed, this may include reference ranges. POTASSIUM 2025-06-25 09:55 [facility] 3.3 mmol/l As of May 2023 testing method has changed, this may include reference ranges. GLOBULIN 2025-06-25 09:55 [facility] 3.6 g/dl (missing) MEAN CORPUSCULAR HGB CONC 2025-06-25 09:55 [facility] 34.4 g/dl (missing) MEAN CORPUSCULAR HEMOGLOBIN 2025-06-25 09:55 [facility] 34.7 pg (missing) AST ASPARTATE AMINOTRANSFERASE 2025-06-25 09:55 [facility] 39 iu/l As of May 2023 testing method has changed, this may include reference ranges. REACTIVE LYMPHS % (MANUAL) 2025-06-25 09:55 [facility] 4 % (missing) TOTAL CELLS COUNTED 2025-06-25 09:55 [facility] 50 ([facility]) A manual differential was performed on a cell count of <100 cells. PLT - PLATELET COUNT 2025-06-25 09:55 [facility] 50 10 3/ul (missing) ALT ALANINE AMINOTRANSFERASE 2025-06-25 09:55 [facility] 50 iu/l As of May 2023 testing method has changed, this may include reference ranges. ALKALINE PHOSPHATASE 2025-06-25 09:55 [facility] 54 iu/l As of May 2023 testing method has changed, this may include reference ranges. GFR - MDRD 2025-06-25 09:55 [facility] 59 ([facility]) The IDMS-traceable MDRD Study Equation has been validated extensively in and populations between the ages of 18 and 70 with impaired kidney function (eGFR < 60 mL/min/1.73m2) and has shown good performance for patients with all common causes of kidney disease. Although this equation has not been validated for patients older than 70, an MDRD-derived eGFR may still be a useful tool for providers caring for patients older than 70. References: http://www.nkdep .nih.gov/lab-chema luation/gfr/crea tinine-stand ardization, last updated January 2012. TOTAL PROTEIN 2025-06-25 09:55 [facility] 6.9 g/dl As of May 2023 testing method has changed, this may include reference ranges. GLUCOSE 2025-06-25 09:55 [facility] 70 mg/dl As of May 2023 testing method has changed, this may include reference ranges. HGB - HEMOGLOBIN 2025-06-25 09:55 [facility] 8.3 g/dl (missing) ANION GAP 2025-06-25 09:55 [facility] 9.0 ([facility]) (missing) CALCIUM 2025-06-25 09:55 [facility] 9.3 mg/dl As of May 2023 testing method has changed, this may include reference ranges. CHLORIDE 2025-06-25 09:55 [facility] 98 mmol/l As of May 2023 testing method has changed, this may include reference ranges. PLATELET ESTIMATE, MANUAL 2025-06-25 09:55 [facility] DECREASED (<130,000) ([facility]) (missing) DIFFERENTIAL COMMENT 2025-06-25 09:55 [facility] MANUAL DIFFERENTIAL ([facility]) (missing) Result panel 10 NUCLEATED RED BLOOD CELLS AUTO 2025-07-09 10:01 [facility] 0.0 /100wbc (missing) EOSINOPHILS # (AUTO) 2025-07-09 10:01 [facility] 0.0 10 3/ul (missing) NRBC ABSOLUTE COUNT (AUTO) 2025-07-09 10:01 [facility] 0.00 x10 3/ul (missing) BASOPHILS # (AUTO) 2025-07-09 10:01 [facility] 0.1 10 3/ul (missing) BILIRUBIN,TOTAL 2025-07-09 10:01 [facility] 0.5 mg/dl As of May 2023 testing method has changed, this may include reference ranges. MONOCYTES # (AUTO) 2025-07-09 10:01 [facility] 0.8 10 3/ul (missing) ALBUMIN/GLOBULIN RATIO 2025-07-09 10:01 [facility] 0.9 (missing) (missing) LYMPHOCYTES # (AUTO) 2025-07-09 10:01 [facility] 1.0 10 3/ul (missing) CREATININE 2025-07-09 10: [facility] 1.2 mg/dl As of May 2023 testing method has changed, this may include reference ranges. MAGNESIUM 2025-07-09 10:01 [facility] 1.4 mg/dl As of May 2023 testing method has changed, this may include reference ranges. MEAN CORPUSCULAR VOLUME 2025-07-09 10: [facility] 103.2 fl (missing) GLUCOSE 2025-07-09 10: [facility] 115 mg/dl As of May 2023 testing method has changed, this may include reference ranges. SODIUM 2025-07-09 10: [facility] 131 mmol/l Unknown ALT ALANINE AMINOTRANSFERASE 2025-07-09 10: [facility] 14 iu/l As of May 2023 testing method has changed, this may include reference ranges. RED CELL DISTRIBUTION WIDTH 2025-07-09 10: [facility] 16.1 % (missing) AST ASPARTATE AMINOTRANSFERASE 2025-07-09 10: [facility] 17 iu/l As of May 2023 testing method has changed, this may include reference ranges. RED BLOOD COUNT 2025-07-09 10:01 [facility] 2.80 10 6/ul (missing) HCT - HEMATOCRIT 2025-07-09 10:01 [facility] 28.9 % (missing) ALBUMIN 2025-07-09 10:01 [facility] 3.4 g/dl As of May 2023 testing method has changed, this may include reference ranges. GLOBULIN 2025-07-09 10:01 [facility] 3.6 g/dl (missing) CARBON DIOXIDE - CO2 2025-07-09 10:01 [facility] 30 mmol/l As of May 2023 testing method has changed, this may include reference ranges. MEAN CORPUSCULAR HGB CONC 2025-07-09 10:01 [facility] 33.6 g/dl (missing) MEAN CORPUSCULAR HEMOGLOBIN 2025-07-09 10:01 [facility] 34.6 pg (missing) PLT - PLATELET COUNT 2025-07-09 10:01 [facility] 340 10 3/ul (missing) POTASSIUM 2025-07-09 10:01 [facility] 4.2 mmol/l As of May 2023 testing method has changed, this may include reference ranges. NEUTROPHILS # (AUTO) 2025-07-09 10:01 [facility] 5.5 10 3/ul (missing) GFR - MDRD 2025-07-09 10:01 [facility] 59 (missing) The IDMS-traceable MDRD Study Equation has been validated extensively in and populations between the ages of 18 and 70 with impaired kidney function (eGFR < 60 mL/min/1.73m2) and has shown good performance for patients with all common causes of kidney disease. Although this equation has not been validated for patients older than 70, an MDRD-derived eGFR may still be a useful tool for providers caring for patients older than 70. References: http://www.nkdep. nih.gov/lab-evalu ation/gfr/creatin ine-stand ardization, last updated January 2012. ALKALINE PHOSPHATASE 2025-07-09 10:01 [facility] 63 iu/l As of May 2023 testing method has changed, this may include reference ranges. BUN - BLOOD UREA NITROGEN 2025-07-09 10: [facility] 7 mg/dl As of May 2023 testing method has changed, this may include reference ranges. ANION GAP 2025-07-09 10:01 [facility] 7.0 (missing) (missing) TOTAL PROTEIN 2025-07-09 10:01 [facility] 7.0 g/dl As of May 2023 testing method has changed, this may include reference ranges. WHITE BLOOD COUNT 2025-07-09 10:01 [facility] 7.4 x10 3/ul (missing) MEAN PLATELET VOLUME 2025-07-09 10:01 [facility] 8.5 fl (missing) CALCIUM 2025-07-09 10:01 [facility] 9.2 mg/dl As of May 2023 testing method has changed, this may include reference ranges. HGB - HEMOGLOBIN 2025-07-09 10: [facility] 9.7 g/dl (missing) CHLORIDE 2025-07-09 10:01 [facility] 94 mmol/l As of May 2023 testing method has changed, this may include reference ranges. Result panel 11 CULTURE, BLOOD #1 2025-07-15 14:36 [facility] NG2D NO GROWTH AFTER 2 DAYS (missing) (missing) CULTURE, BLOOD #1 2025-07-15 14:36 [facility] NG5D NO GROWTH AFTER 5 DAYS (missing) (missing) Result panel 12 CULTURE, BLOOD #2 2025-07-15 14:41 [facility] NG2D NO GROWTH AFTER 2 DAYS (missing) (missing) CULTURE, BLOOD #2 2025-07-15 14:41 [facility] NG5D NO GROWTH AFTER 5 DAYS (missing) (missing) Result panel 13 NUCLEATED RED BLOOD CELLS AUTO 2025-07-30 12:11 [facility] 0.0 /100wbc (missing) BASOPHILS # (AUTO) 2025-07-30 12:11 [facility] 0.0 10 3/ul (missing) EOSINOPHILS # (AUTO) 2025-07-30 12:11 [facility] 0.0 10 3/ul (missing) NRBC ABSOLUTE COUNT (AUTO) 2025-07-30 12:11 [facility] 0.00 x10 3/ul (missing) MONOCYTES # (AUTO) 2025-07-30 12:11 [facility] 0.5 10 3/ul (missing) BILIRUBIN,TOTAL 2025-07-30 12:11 [facility] 0.5 mg/dl As of May 2023 testing method has changed, this may include reference ranges. ALBUMIN/GLOBULIN RATIO 2025-07-30 12:11 [facility] 1.0 (missing) (missing) LYMPHOCYTES # (AUTO) 2025-07-30 12:11 [facility] 1.0 10 3/ul (missing) CREATININE 2025-07-30 12:11 [facility] 1.0 mg/dl As of May 2023 testing method has changed, this may include reference ranges. MAGNESIUM 2025-07-30 12:11 [facility] 1.2 mg/dl As of May 2023 testing method has changed, this may include reference ranges. MEAN CORPUSCULAR VOLUME 2025-07-30 12:11 [facility] 106.7 fl (missing) SODIUM 2025-07-30 12:11 [facility] 130 mmol/l Unknown PLT - PLATELET COUNT 2025-07-30 12:11 [facility] 147 10 3/ul (missing) RED CELL DISTRIBUTION WIDTH 2025-07-30 12:11 [facility] 17.7 % (missing) RED BLOOD COUNT 2025-07-30 12:11 [facility] 2.55 10 6/ul (missing) ALT ALANINE AMINOTRANSFERASE 2025-07-30 12:11 [facility] 25 iu/l As of May 2023 testing method has changed, this may include reference ranges. AST ASPARTATE AMINOTRANSFERASE 2025-07-30 12:11 [facility] 26 iu/l As of May 2023 testing method has changed, this may include reference ranges. CARBON DIOXIDE - CO2 2025-07-30 12:11 [facility] 27 mmol/l As of May 2023 testing method has changed, this may include reference ranges. HCT - HEMATOCRIT 2025-07-30 12:11 [facility] 27.2 % (missing) ALBUMIN 2025-07-30 12:11 [facility] 3.3 g/dl As of May 2023 testing method has changed, this may include reference ranges. GLOBULIN 2025-07-30 12:11 [facility] 3.4 g/dl (missing) NEUTROPHILS # (AUTO) 2025-07-30 12:11 [facility] 3.6 10 3/ul (missing) MEAN CORPUSCULAR HGB CONC 2025-07-30 12:11 [facility] 32.4 g/dl (missing) MEAN CORPUSCULAR HEMOGLOBIN 2025-07-30 12:11 [facility] 34.5 pg (missing) POTASSIUM 2025-07-30 12:11 [facility] 4.5 mmol/l As of May 2023 testing method has changed, this may include reference ranges. WHITE BLOOD COUNT 2025-07-30 12:11 [facility] 5.2 x10 3/ul (missing) ALKALINE PHOSPHATASE 2025-07-30 12:11 [facility] 57 iu/l As of May 2023 testing method has changed, this may include reference ranges. TOTAL PROTEIN 2025-07-30 12:11 [facility] 6.7 g/dl As of May 2023 testing method has changed, this may include reference ranges. BUN - BLOOD UREA NITROGEN 2025-07-30 12:11 [facility] 7 mg/dl As of May 2023 testing method has changed, this may include reference ranges. GFR - MDRD 2025-07-30 12:11 [facility] 73 (missing) The IDMS-traceable MDRD Study Equation has been validated extensively in and populations between the ages of 18 and 70 with impaired kidney function (eGFR < 60 mL/min/1.73m2) and has shown good performance for patients with all common causes of kidney disease. Although this equation has not been validated for patients older than 70, an MDRD-derived eGFR may still be a useful tool for providers caring for patients older than 70. References: http://www.nkdep. nih.gov/lab-evalu ation/gfr/creatin ine-stand ardization, last updated January 2012. ANION GAP 2025-07-30 12:11 [facility] 8.0 (missing) (missing) HGB - HEMOGLOBIN 2025-07-30 12:11 [facility] 8.8 g/dl (missing) MEAN PLATELET VOLUME 2025-07-30 12:11 [facility] 8.9 fl (missing) GLUCOSE 2025-07-30 12:11 [facility] 81 mg/dl As of May 2023 testing method has changed, this may include reference ranges. CALCIUM 2025-07-30 12:11 [facility] 9.0 mg/dl As of May 2023 testing method has changed, this may include reference ranges. CHLORIDE 2025-07-30 12:11 [facility] 95 mmol/l As of May 2023 testing method has changed, this may include reference ranges. Result panel 14 NUCLEATED RED BLOOD CELLS AUTO 2025-08-05 12:46 [facility] 0.0 /100wbc (missing) BASOPHILS # (AUTO) 2025-08-05 12:46 [facility] 0.0 10 3/ul (missing) EOSINOPHILS # (AUTO) 2025-08-05 12:46 [facility] 0.0 10 3/ul (missing) NRBC ABSOLUTE COUNT (AUTO) 2025-08-05 12:46 [facility] 0.00 x10 3/ul (missing) BILIRUBIN,TOTAL 2025-08-05 12:46 [facility] 0.4 mg/dl As of May 2023 testing method has changed, this may include reference ranges. MONOCYTES # (AUTO) 2025-08-05 12:46 [facility] 0.6 10 3/ul (missing) ALBUMIN/GLOBULIN RATIO 2025-08-05 12:46 [facility] 0.9 (missing) (missing) LYMPHOCYTES # (AUTO) 2025-08-05 12:46 [facility] 1.0 10 3/ul (missing) MAGNESIUM 2025-08-05 12:46 [facility] 1.1 mg/dl As of May 2023 testing method has changed, this may include reference ranges. CREATININE 2025-08-05 12:46 [facility] 1.2 mg/dl As of May 2023 testing method has changed, this may include reference ranges. BUN - BLOOD UREA NITROGEN 2025-08-05 12:46 [facility] 10 mg/dl As of May 2023 testing method has changed, this may include reference ranges. MEAN CORPUSCULAR VOLUME 2025-08-05 12:46 [facility] 107.7 fl (missing) GLUCOSE 2025-08-05 12:46 [facility] 125 mg/dl As of May 2023 testing method has changed, this may include reference ranges. SODIUM 2025-08-05 12:46 [facility] 131 mmol/l (missing) ALT ALANINE AMINOTRANSFERASE 2025-08-05 12:46 [facility] 14 iu/l As of May 2023 testing method has changed, this may include reference ranges. AST ASPARTATE AMINOTRANSFERASE 2025-08-05 12:46 [facility] 18 iu/l As of May 2023 testing method has changed, this may include reference ranges. RED CELL DISTRIBUTION WIDTH 2025-08-05 12:46 [facility] 18.1 % (missing) RED BLOOD COUNT 2025-08-05 12:46 [facility] 2.34 10 6/ul (missing) HCT - HEMATOCRIT 2025-08-05 12:46 [facility] 25.2 % (missing) PLT - PLATELET COUNT 2025-08-05 12:46 [facility] 262 10 3/ul (missing) ALBUMIN 2025-08-05 12:46 [facility] 3.2 g/dl As of May 2023 testing method has changed, this may include reference ranges. GLOBULIN 2025-08-05 12:46 [facility] 3.4 g/dl (missing) POTASSIUM 2025-08-05 12:46 [facility] 3.8 mmol/l As of May 2023 testing method has changed, this may include reference ranges. CARBON DIOXIDE - CO2 2025-08-05 12:46 [facility] 30 mmol/l As of May 2023 testing method has changed, this may include reference ranges. MEAN CORPUSCULAR HGB CONC 2025-08-05 12:46 [facility] 32.9 g/dl (missing) MEAN CORPUSCULAR HEMOGLOBIN 2025-08-05 12:46 [facility] 35.5 pg (missing) NEUTROPHILS # (AUTO) 2025-08-05 12:46 [facility] 4.3 10 3/ul (missing) WHITE BLOOD COUNT 2025-08-05 12:46 [facility] 5.9 x10 3/ul (missing) GFR - MDRD 2025-08-05 12:46 [facility] 59 (missing) The IDMS-traceable MDRD Study Equation has been validated extensively in and populations between the ages of 18 and 70 with impaired kidney function (eGFR < 60 mL/min/1.73m2) and has shown good performance for patients with all common causes of kidney disease. Although this equation has not been validated for patients older than 70, an MDRD-derived eGFR may still be a useful tool for providers caring for patients older than 70. References: http://www.nkdep. nih.gov/lab-evalu ation/gfr/creatin ine-stand ardization, last updated January 2012. ANION GAP 2025-08-05 12:46 [facility] 6.0 (missing) (missing) TOTAL PROTEIN 2025-08-05 12:46 [facility] 6.6 g/dl As of May 2023 testing method has changed, this may include reference ranges. ALKALINE PHOSPHATASE 2025-08-05 12:46 [facility] 64 iu/l As of May 2023 testing method has changed, this may include reference ranges. HGB - HEMOGLOBIN 2025-08-05 12:46 [facility] 8.3 g/dl (missing) CALCIUM 2025-08-05 12:46 [facility] 8.9 mg/dl As of May 2023 testing method has changed, this may include reference ranges. MEAN PLATELET VOLUME 2025-08-05 12:46 [facility] 9.0 fl (missing) CHLORIDE 2025-08-05 12:46 [facility] 95 mmol/l As of May 2023 testing method has changed, this may include reference ranges. Social History date description facility 2025-06-27 12:33 (unavailable) [facility] 2025-07-09 08:34 (unavailable) [facility]
[2025-08-26 10:09] LABS: ALT ALANINE AMINOTRANSFERASE 35.0 IU/L (10-60); AST ASPARTATE AMINOTRANSFERASE 42.0 IU/L (10-42); BUN - BLOOD UREA NITROGEN 12.0 mg/dL (6-20); CARBON DIOXIDE - CO2 27.0 mmol/L (21-32); CREATININE 0.8 mg/dL (0.6-1.3); GFR - MDRD 94.0 (>89)
[2025-08-26] MEDS: SODIUM CHLORIDE 0.9% 1,000 ML IV STA ×2 (10:18→11:57)
[2025-08-26 10:34] LABS: HCT - HEMATOCRIT 25.2 % (42.0-52.0); HGB - HEMOGLOBIN 8.2 g/dL (14.0-18.0); MEAN PLATELET VOLUME 9.7 fL (7.4-11.4); NRBC ABSOLUTE COUNT (AUTO) 0.00 x10^3/uL; NUCLEATED RED BLOOD CELLS AUTO 0.0 /100WBC; PLT - PLATELET COUNT 440 10^3/uL (130-450); RED CELL DISTRIBUTION WIDTH 17.2 % (12.0-15.0)
--- NOTE | 2025-08-26 12:14 | XRAY Report ---
PROCEDURE: XR Chest 1V INDICATIONS: increased cough TECHNIQUE: One view of the chest was acquired. COMPARISON: Chest 2 views dated 06/21/2025, CT chest with contrast dated 07/15/2025 FINDINGS: Surgical changes and devices: None. Lungs and pleura: There is severe emphysematous change present. There is an increasing infiltrate present in the right lung with a basilar predominance. Likely chronic left-sided opacity is better seen on the CT. Mediastinum: Mediastinal contours appear normal. Heart size is normal. Bones and chest wall: No suspicious bony lesions. Overlying soft tissues appear unremarkable. IMPRESSION: Findings suggest worsening right basilar pneumonia in a patient with severe emphysematous change. Progress films are recommended until clear. Reviewed by: Maurice Pagan MD on 08/26/2025 12:10 PM PDT Approved by: Maurice Pagan MD on 08/26/2025 12:10 PM PDT Station ID: [id number]
--- NOTE | 2025-08-26 12:53 | ED Physician Documentation ---
History of Present Illness Stated complaint Stated Complaint: GEN WEAKNESS Chief complaint Chief Complaint: General History obtained from History obtained from: Family Additonal information Additional information: Patient is brought to the emergency department by his for chief complaint of severe generalized weakness and for incoherence/confusion that has been going on for the last couple of days. The patient is not really able to offer any information himself. states he has just been laying in bed all day and all night day after today. She cares for him at home. He is on palliative care for lung cancer and is still currently getting chemotherapy, though does not think he will be able to manage his chemo infusion that is scheduled for 2 days from now. He has not had any fevers that she knows of. No vomiting. She states he has fallen 3 times in the last 24 hours trying to go to the bathroom. She states that this happens occasionally but is not normal for him at baseline. His cough does seem worse than usual. No other complaints at this time. Meds/Allgy Home Medications Ambulatory Orders Medication Instructions Recorded Confirmed cholecalciferol (vitamin D3) 25 1,000 unit PO DAILY 08/26/25 mcg (1,000 unit) capsule multivitamin 1 tab PO DAILY 05/21/1408/08 atorvastatin 20 mg tablet 20 mg PO DAILY 07/28/2208/08 tiotropium bromide 18 mcg capsule 1 puff inhalation DA LUCIAN 07/28/22 07/31/25 with inhalation device (Spiriva with HandiHaler) amlodipine 5 mg tablet 5 mg PO DAILY 05/18/2308/26 folic acid 1 mg tablet 1 mg PO QDAY #30 tabs 08/26/25 fluticasone 250 mcg-salmeterol 50 1 inh inhalation BID #60 ea 07/03/25 08/26/25 mcg/dose blistr powdr for inhalation gabapentin 300 mg capsule 300 mg PO BID #180 caps 07/0808/26/25 metoprolol succinate 50 mg 50 mg PO QDAY 07/22/2508/08 tablet,extended release 24 hr oxycodone 5 mg tablet 5 - 10 mg (1 - 2 x 5 mg) PO Q4H 07/22/25 08/26/25 PRN pain #150 tabs polyethylene glycol 3350 17 17 g PO QDAY PRN wheezing 07/22/25 08/26/25 gram/dose oral powder (Miralax) omeprazole 40 mg capsule,delayed 40 mg PO QDAY #90 cap s 07/31/25 08/26/25 release mirtazapine 7.5 mg tablet See Rx Instructions .Route 1 08/26/25 .COMPLEX #30 tabs Allergies Allergies Allergy/AdvReac Type Severity Reaction Status Date / Time No Known Drug Allergies Allergy Verified 08/26/25 10:15 PFSH Active Problems All Active Problems (Updated 08/26/25 @ 13:00 by Carole Modi MD) Lung cancer (Acute) Generalized weakness (Acute) Delirium (Acute) Pneumonia (Acute) Closed fracture of left superior pubic ramus (Acute) Arthralgia of left side of pelvis (Acute) Breathlessness on mild exertion (Acute) Chronic left shoulder pain (Acute) Caregiver burden (Acute) Depression (Acute) Constipation due to opioid therapy (Acute) Hypomagnesemia (Acute) Encounter for antineoplastic chemotherapy (Acute) Counseling regarding advanced care planning and goals of care (Acute) Muscle weakness (generalized) (Acute) Sciatica, left side (Acute) Chronic pain syndrome (Acute) Protein calorie malnutrition (Acute) Chronic GERD (Acute) Tobacco abuse disorder (Acute) COPD (chronic obstructive pulmonary disease) (Chronic) Cancer of right lung (Acute) Healthcare maintenance (Acute) Cancer of right kidney (Acute) Cancer of left lung (Acute) Medical History Medical History (Updated 08/26/25 @ 13:00 by Carole Modi MD) Pneumonia Pneumonia Hypertension Family History Family History (Updated 05/02/25 @ 14:56 by ALISA Schilling) Father Lung cancer Pancreatic cancer Brother Colon cancer Brother Colon cancer Social History Social History (Updated 08/26/25 @ 10:14 by Daniel Harris, RN, BSN) Smoking Status: Former smoker If you are a former smoker, when did you quit? (Date/Year): 08/01 How many cigarettes a day do you smoke? (20 cigarettes=1 Pk): 3 Do you dip or chew tobacco?: No Do you vape?: No Type of Resources Given: ordered nicotine patches; has not started Living arrangement: At home Marital Status: Living Condition: With spouse/s.o. Support Person: Yes Relationship Notes: spouse living with lung cancer as well Has a Durable Power of Technical Documentation Specialist for Health Care?: No DPOA on file?: No Has Health Care Directive?: No Health Care Directive on file?: No Level: Independent Do you feel safe in your home environment?: Yes History of physical, verbal, emotional, or financial abuse?: No Substance Use: denies use Service: Yes POLST Patient has POLST: Yes POLST CPR Status: Do Not Attempt Resuscitation (DNAR) / Allow Natural Exam Exam Vital Signs: Vital Signs x48h Temp Pulse Resp BP Pulse Ox 08/26/25 10:10 82 18 137/71 H 94 08/26/25 09:20 37.1 C 84 18 92 Constitutional normal general appearance and no apparent distress Emaciated, chronically ill-appearing patient who is laying in bed with eyes closed. HENMT normocephalic, head/scalp atraumatic, external nose normal and oral mucous membranes normal Eyes EOMs intact bilaterally Neck/C-Spine visual inspection normal and supple Respiratory breath sounds equal bilaterally Mildly labored respirations with some rales in bilateral lung bases. Cardiovascular normal heart rate noted, regular rhythm noted and no edema Gastrointestinal abdomen normal to inspection, abdomen soft to palpation, nontender to palpation and nondistended Genitourinary no CVA tenderness Extremities normal to inspection Neurology Alert, grossly intact Psychiatry mental status grossly normal Skin skin color normal Results Vitals Vitals: Vital Signs - 24 hr 08/26/25 09:20 08/26/25 10:10 Temperature 37.1 C Temperature Source Temporal Artery Scan Pulse Rate 84 82 Respiratory Rate 18 18 Blood Pressure 137/71 H O2 Saturation 92 94 O2 Source Room air Room air Pain Intensity 0 Oxygen O2 Source Room air Labs Labs: Laboratory Tests 08/26/25 08/26/25 09:46 10:28 WBC 8.6 RBC 2.32 L Hgb 8.2 L Hct 25.2 L MCV 108.6 H MCH 35.3 H MCHC 32.5 RDW 17.2 H Plt Count 440 MPV 9.7 Neut # (Auto) 6.8 H Lymph # (Auto) 0.8 L [place] # (Auto) 1.0 Eos # (Auto) 0.0 Baso # (Auto) 0.0 Absolute Nucleated RBC 0.00 Nucleated RBC % 0.0 Sodium 134 L Potassium 3.9 Chloride 97 L Carbon Dioxide 27 Anion Gap 10.0 BUN 12 Creatinine 0.8 Estimated GFR (MDRD) 94 Glucose 111 H Calcium 9.2 Total Bilirubin 0.6 AST 42 ALT 35 Alkaline Phosphatase 82 Total Protein 7.4 Albumin 2.9 L Globulin 4.5 H Albumin/Globulin Ratio 0.6 L Lipase 11 PD Medical Decision Making ED course ED course: The patient was worked up with laboratory studies and chest x-ray. He was found to have a worsening pneumonia in his right lower lung. His white blood cell count was normal at 8.6. Hemoglobin was low at 8.2. Sodium slightly decreased at 134;Otherwise labs unremarkable. I spoke with Dr. Paniagua who agreed to admit the patient to his service. We are giving IV Rocephin and Zithromax here in the ED. Discharge Plan Discharge Patient Disposition: [facility] DC/Xfer Condition: Serious Clinical Impression: Pneumonia, Delirium, Generalized weakness, Lung cancer Prescriptions: No Action fluticasone propion-salmeterol 250-50 mcg/dose blister with device 1 inh inhalation BID Qty: 60 3RF mirtazapine 7.5 mg tablet See Rx Instructions .ROUTE .COMPLEX Qty: 30 6RF Dose Instruction: TAKE ONE (1) TABLET BY MOUTH ONCE DAILY AT BEDTIME Rx Instructions: TAKE ONE (1) TABLET BY MOUTH ONCE DAILY AT BEDTIME multivitamin 1 EACH capsule 1 tab PO DAILY cholecalciferol (vitamin D3) 1,000 UNIT capsule 1,000 unit PO DAILY atorvastatin 20 MG tablet 20 mg PO DAILY tiotropium bromide [Spiriva with HandiHaler] 18 MCG capsule, w/inhalation device 1 puff inhalation DAILY amlodipine 5 MG tablet 5 mg PO DAILY folic acid 1 mg tablet 1 mg PO QDAY Qty: 30 6RF polyethylene glycol 3350 [Miralax] 17 gram/dose powder 17 g PO QDAY PRN (Reason: wheezing) metoprolol succinate 50 mg tablet extended release 24 hr 50 mg PO QDAY gabapentin 300 mg capsule 300 mg PO BID Qty: 180 3RF oxycodone 5 mg tablet 5 - 10 mg PO Q4H MDD Not to exceed 8/24 hours PRN (Reason: pain) Qty: 150 0RF omeprazole 40 mg capsule,delayed release(DR/EC) 40 mg PO QDAY Qty: 90 2RF Print Language: Chinese
[2025-08-26] MEDS ORDERED: ONDANSETRON 4 MG/2 ML VIAL IVP PRN (13:02)
[2025-08-26] MEDS ORDERED: SODIUM CHLORIDE FLUSH 0.9% 10 ML SYRINGE IVP PRN (13:02)
--- NOTE | 2025-08-26 13:18 | HISTORY & PHYSICAL EXAMINATION ---
Chief Complaint Chief Complaint Chief Complaint: Weakness, encephalopathy History of Present Illness Admitted From Admitted From:: ED History Obtained From Records Reviewed: [facility] History obtained from: Family, EMR Exam Limitations: Patient is encephalopathic History of Present Illness HPI Comment/Other: This is a 74-year-old gentleman with a past medical history notable for adenocarcinoma of the left lung, prolonged smoking history, COPD on palliative chemotherapy. He presents with his after he was found to be progressively weak over the preceding days. He has been more somnolent and confused. His last oncology appointment was on 08/06. Reviewed the records. 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 He completed adjuvant chemotherapy with cisplatin and paclitaxel in 2015. He had a left upper lobe resection in 2014. He had numerous suspicious nodules on PET scan in February of this year with findings of right lower lobe and left lung apex carcinoma. This is stage IV. He is being treated with palliative pemetrexed, pembrolizumab. Last chemotherapy was on 08/06. Planned for 08/27. Getting chemo every 3 weeks. Most of his history is gathered from his via phone. The patient is able to mentate appropriately. He wakes and answers some simple yes or no questions accurately, but quickly falls back to sleep. He seems quite fatigued. He denies any pains. Does not wince on palpation across his exam. He says he is "always cold". His tells me that since his last chemo appointment on 08/06, he has had a precipitous decline. Since that time, he has become more and more somnolent. More and more fatigued. He has been spending more time in bed. Up until the last few days where he spent basically 24 hours a day in bed and asleep. She has tried to arouse him for meals. She says she has been able to actually wake him and he has been able to eat at least 2 small meals a day as well as drinking fluids. His labs overall are supportive of this. This all came to a head though when he fell last evening. She had to call the fire department out to get him off the floor. He later then went to the bedroom and laid across the bed and jail on the floor. She was unable to lift him into bed, and had to call the fire department again. At that time they decided to come to the ED. In the ED, he was found to have mostly normal metabolic workup. He has a slight hyponatremia 134, glucose 111, albumin 2.9. Normal renal function. Normal electrolytes. His CBC looks similar to early September labs. No leukocytosis. Hgb 8.2, platelets 440. Notably his platelets are the highest they have been going back to 2014. Unremarkable urine. CT of his head shows no acute process x-ray of his chest shows persistent and worsening right lower lobe opacities. There is thought to be a chronic left- sided opacity better seen on CT. Recommendation for correlation with CT. He was recently seen in July for concern with new lung mass and possible pneumonia. He was sent to [facility]. There is treated with IV antibiotics. There was consideration for bronchoscopy, but it was never done. He follows with palliative care. See my ACP note from today. Meds/Allgy Home Medications Ambulatory Orders Medication Instructions Recorded Confirmed cholecalciferol (vitamin D3) 25 1,000 unit PO DAILY 08/26/25 mcg (1,000 unit) capsule multivitamin 1 tab PO DAILY 05/21/1408/08 atorvastatin 20 mg tablet 20 mg PO DAILY 07/28/2208/08 tiotropium bromide 18 mcg capsule 1 cap inhalation MARKEL LY 07/28/22 08/26/25 with inhalation device (Spiriva with HandiHaler) amlodipine 5 mg tablet 5 mg PO DAILY 05/18/2308/26 fluticasone 250 mcg-salmeterol 50 1 inh inhalation BID #60 ea 07/03/25 08/26/25 mcg/dose blistr powdr for inhalation gabapentin 300 mg capsule 300 mg PO BID #180 caps 07/0808/26/25 metoprolol succinate 50 mg 50 mg PO DAILY 07/22/25 tablet,extended release 24 hr oxycodone 5 mg tablet 5 - 10 mg (1 - 2 x 5 mg) PO Q4H 07/22/25 08/26/25 PRN pain #150 tabs polyethylene glycol 3350 17 17 g PO DAILY PRN wheezing 07/22/25 08/26/25 gram/dose oral powder (Miralax) albuterol sulfate 90 mcg/actuation 2 puff inhalation Q 4-6H PRN 08/26/25 08/26/25 aerosol inhaler shortness of breath or wheez ing folic acid 1 mg tablet 1 mg PO DAILY 08/26/2508/26 mirtazapine 7.5 mg tablet 7.5 mg PO HS 08/26/25 omeprazole 40 mg capsule,delayed 40 mg PO DAILY 08/26/25 release Allergies Allergies Allergy/AdvReac Type Severity Reaction Status Date / Time No Known Drug Allergies Allergy Verified 08/26/25 10:15 [facility] Active Problems All Active Problems (Updated 08/26/25 @ 15:14 by Richard Paniagua DO) HLD (hyperlipidemia) (Chronic) Lung cancer (Acute) Generalized weakness (Acute) Delirium (Acute) Pneumonia (Acute) Closed fracture of left superior pubic ramus (Acute) Arthralgia of left side of pelvis (Acute) Breathlessness on mild exertion (Acute) Chronic left shoulder pain (Acute) Caregiver burden (Acute) Depression (Acute) Constipation due to opioid therapy (Acute) Hypomagnesemia (Acute) Encounter for antineoplastic chemotherapy (Acute) Counseling regarding advanced care planning and goals of care (Acute) Muscle weakness (generalized) (Acute) Sciatica, left side (Acute) Chronic pain syndrome (Acute) Protein calorie malnutrition (Acute) Chronic GERD (Acute) Tobacco abuse disorder (Acute) COPD (chronic obstructive pulmonary disease) (Chronic) Cancer of right lung (Acute) Healthcare maintenance (Acute) Cancer of right kidney (Acute) Cancer of left lung (Acute) Medical History Medical History (Updated 08/26/25 @ 15:14 by Richard Paniagua DO) Pneumonia Pneumonia Hypertension Family History Family History (Updated 05/02/25 @ 14:56 by ALISA Schilling) Father Lung cancer Pancreatic cancer Brother Colon cancer Brother Colon cancer Social History Social History (Updated 08/26/25 @ 10:14 by Daniel Harris, RN, BSN) Smoking Status: Former smoker If you are a former smoker, when did you quit? (Date/Year): 08/01 How many cigarettes a day do you smoke? (20 cigarettes=1 Pk): 3 Do you dip or chew tobacco?: No Do you vape?: No Type of Resources Given: ordered nicotine patches; has not started Living arrangement: At home Marital Status: Living Condition: With spouse/s.o. Support Person: Yes Relationship Notes: spouse living with lung cancer as well Has a Durable Power of Water Inspector for Health Care?: No DPOA on file?: No Has Health Care Directive?: No Health Care Directive on file?: No Level: Independent Do you feel safe in your home environment?: Yes History of physical, verbal, emotional, or financial abuse?: No Substance Use: denies use Service: Yes POLST Patient has POLST: Yes POLST CPR Status: Do Not Attempt Resuscitation (DNAR) / Allow Natural Exam Exam Vital Signs: Vital Signs x48h Temp Pulse Pulse Resp BP BP Pulse Ox 08/26/25 13:50 36.8 C 81 20 139/85 H 92 08/26/25 12:53 80 16 131/74 H 96 08/26/25 12:53 81 15 131/74 H 92 08/26/25 10:10 82 18 137/71 H 94 08/26/25 09:20 37.1 C 84 18 92 O2 Flow Rate 08/26/25 13:50 0 08/26/25 12:53 08/26/25 12:53 08/26/25 10:10 08/26/25 09:20 GEN: Cachectic and frail appearing. Fatigued. Somnolent. Rouses to voice. HEENT: Normal appearance of ears and nose. Mucous membranes moist. Barely opens his mouth. Does have some melanotic spots on his tongue. Unclear. Temporal wasting. Cardiac: Regular rate and rhythm with some ectopic beats. No murmurs appreciated. Pulm: No wheezes on exam. Moving air through his lung caputo. No rhonchi appreciated. No rales. Abdomen: Soft, nontender, nondistended. No rebound or guarding Neuro: Face symmetric. Unable to participate in exam. No clear focal deficits. Not moving any of his extremities. Speech is fluent though sparse. Psych: Flattened affect. Mood seemingly depressed with the patient's fails to endorse. Conclusion/Plan Problem List (1) Delirium: (2) Generalized weakness: Plan: Patient presented with progressive weakness and somnolence over the preceding 3 weeks. His says that since his last chemo appointment, he has become more somnolent. Been sleeping more often. This is culminated in the last few days prior to admission him sleeping 24 hours a day. She wakes him for meals and he will eat a scant amount and then go back to sleep. He will occasionally wander and go to the bathroom and back to bed. On the day prior to admission, he had a ground-level fall and his was unable to get him up off the ground. She did call the fire department. He had a further fall versus lying jail across the bed necessitating a second call the fire department which prompted them to come to the ED. No clear metabolic causes for this. His creatinine and electrolytes look normal. No recent intoxications. He has been getting some pain meds but not frequently. UA without evidence of infection. Glucose is normal. Does have evidence of pneumonia as below - Trend BMP and CBC a.m. - Treat pneumonia as below - TSH, ammonia this afternoon - Regular diet (3) Pneumonia: Plan: Patient has evidence of right basilar pneumonia on his chest x-ray per radiologist read. Additionally likely increasing left basilar prominence. Recommending correlation with CT. The patient does not have a leukocytosis. He did not have a leukocytosis when seen in July and was treated with antibiotics. It is unclear how much he actually improved after he was seen in July. He is not short of breath, not hypoxic. No significant cough. Given the pace which he has declined, it is possible he has had an underlying untreated pneumonia over this time that has led to his decline. - Starting on treatment for pneumonia - Consideration for broadening to cover pneumocystis with Bactrim o Follow-up beta D glucan - Ordered CT of scan of his chest with contrast - CBC a.m. - Follow-up blood cultures - Not coughing up any sputum - Consideration that his consolidations on CT may be malignant in nature Qualifiers: Pneumonia type: due to unspecified organism Laterality: unspecified laterality Lung location: unspecified part of lung Qualified Code(s): J18.9 - Pneumonia, unspecified organism (4) Lung cancer: Plan: Patient is on fortunate history of a prior treated left lung cancer that was resected with adjuvant chemotherapy following. Completed that chemotherapy in 2015. Had recurrent right lung cancer diagnosed in February of this year that is stage IV. He is on palliative immunotherapy and tolerating well up until July when he had a pneumonia that necessitated transfer to [facility] as below. Since his last infusion on August 06, has had decline as above. - CT scan of his chest as above - Ongoing goals of care conversation - Palliative care is familiar with the patient - Due for chemo 08/27, indefinitely deferred Qualifiers: Laterality: right Lung location: lower lobe of lung Qualified Code(s): C34.31 - Malignant neoplasm of lower lobe, right bronchus or lung (5) Closed fracture of left superior pubic ramus: Plan: He has a nontraumatic left superior pubic ramus fracture that was diagnosed only recently at the end of July. He reports that the pain came on insidiously. Impacts his ADLs and mobility. Comfortable while lying down. Suspect this may be malignancy related. Graciously patient does not in any pain while lying down on my exam. - Started on scheduled Tylenol and continue REVERSE ENGINEER gabapentin - Monitor renal function while on gabapentin - As needed oral and parenteral opiates Qualifiers: Encounter type: subsequent encounter (6) Depression: Plan: Patient has a charted history of depression. His says that he is normally fairly euthymic. Very depressed mood on my exam. Difficult to get him to endorse either way. - Continue REVERSE ENGINEER mirtazapine nightly, going up and dose - Consider SSRI Qualifiers: Depression Type: persistent depressive disorder Qualified Code(s): F 34.1 - Dysthymic disorder (7) Protein calorie malnutrition: Plan: Patient with clear signs of malnutrition. BMI 15. Loss of muscle mass. Both acute and chronic. Not meeting caloric intake given likely increased metabolic demand of his tumor. - Appreciate nutrition assistance - Continue Remeron as above - Regular diet - Goals of care conversations as above Qualifiers: Protein-calorie malnutrition severity: moderate Qualified Code(s): E 44.0 - Moderate protein-calorie malnutrition (8) COPD (chronic obstructive pulmonary disease): Plan: Longstanding history of COPD. 50-year smoking history. Only recently quit earlier this year. He is on fluticasone-salmeterol twice daily, Spiriva and as needed albuterol. No wheezing on exam. He is on room air. Not on chronic oxygen. - Continue daily inhalers - Continue smoking cessation - Continue PPI oral daily - Goal saturation 88 to 92% Qualifiers: COPD type: unspecified COPD Qualified Code(s): J44.9 - Chronic obstructive pulmonary disease, unspecified (9) Cancer of right kidney: Plan: Noted. Remote. Likely unrelated to his chronic or acute condition. (10) Hypertension: (11) HLD (hyperlipidemia): Plan: Per his history. He has both hypertension and dyslipidemia. Normotensive here. Given ongoing goals of care as above, in an effort to reduce pill burden in this delirious patient, not continuing on his statin or amlodipine. - Will continue metoprolol for now to avoid reflex tachycardia. Lab Results Lab results reviewed: Yes 08/26/25 10:28 08/26/25 09:46 Diagnostic Imaging Results Diagnostic Imaging Results: positive Final report reviewed and Read independently Core Measures Anticipated LOS I expect patient to be DC'd or transferred within 96 hours.: Yes DVT/VTE - Prophylaxis VTE/DVT Device ordered at admit?: Yes
[2025-08-26 13:35] LABS: KETONES,URINE (UA) TRACE mg/dL (NEGATIVE); OCCULT BLOOD,URINE NEGATIVE (NEGATIVE)
[2025-08-26 13:36] LABS: GLUCOSE, URINE (UA) NEGATIVE (NEGATIVE)
--- NOTE | 2025-08-26 13:50 | CT Report ---
PROCEDURE: CT Head WO INDICATIONS: L facial weakness TECHNIQUE: CT of the head was performed, without intravenous contrast. Reformats: Coronal and sagittal. For radiation dose reduction, the following was used: automated exposure control, adjustment of mA and/or kV according to patient size. COMPARISON: None. FINDINGS: Image quality: Diagnostic. CSF spaces: Basal cisterns are patent. No extra-axial fluid collections. Ventricles are normal in size and shape. Brain: No midline shift. No intracranial mass effect or hemorrhage. Leon- white matter interface is normal. Skull and face: Calvarium and visualized facial bones are intact, without suspicious lesions. Sinuses: Visualized sinuses and mastoids are clear. IMPRESSION: No acute intracranial pathology. Reviewed by: Maurice Pagan MD on 08/26/2025 1:47 PM PDT Approved by: Maurice Pagan MD on 08/26/2025 1:47 PM PDT Station ID: [id number]
[2025-08-26] MEDS: cefTRIAXone 2 GM in SODIUM CHLORIDE 0.9% MINIBAG 100 ML IV STA (14:18)
[2025-08-26] MEDS: HYDROmorphone 0.5 MG/0.5 ML SYRINGE IVP STA (14:19)
--- NOTE | 2025-08-26 15:07 | PHARMACY PROGRESS NOTE ---
Best Possible Medication History Admit Date and Time: 08/26/25 1301 Home Medications Medication Instructions Recorded Confirmed Type cholecalciferol (vitamin D3) 25 1,000 unit PO DAILY 08/26/25 History mcg (1,000 unit) capsule multivitamin 1 tab PO DAILY 05/21/1408/08 History atorvastatin 20 mg tablet 20 mg PO DAILY 07/28/2208/08 History tiotropium bromide 18 mcg capsule 1 cap inhalation MARKEL LY 07/28/22 08/26/25 History with inhalation device (Spiriva with HandiHaler) amlodipine 5 mg tablet 5 mg PO DAILY 05/18/2308/26 History fluticasone 250 mcg-salmeterol 50 1 inh inhalation BID #60 ea 07/03/25 08/26/25 Rx mcg/dose blistr powdr for inhalation gabapentin 300 mg capsule 300 mg PO BID #180 caps 07/0808/26/25 Rx metoprolol succinate 50 mg 50 mg PO DAILY 07/22/25 History tablet,extended release 24 hr oxycodone 5 mg tablet 5 - 10 mg (1 - 2 x 5 mg) PO Q4H 07/22/25 08/26/25 Rx PRN pain #150 tabs polyethylene glycol 3350 17 17 g PO DAILY PRN wheezing 07/22/25 08/26/25 History gram/dose oral powder (Miralax) albuterol sulfate 90 mcg/actuation 2 puff inhalation Q 4-6H PRN 08/26/25 08/26/25 History aerosol inhaler shortness of breath or wheez ing folic acid 1 mg tablet 1 mg PO DAILY 08/26/2508/26 History mirtazapine 7.5 mg tablet 7.5 mg PO HS 08/26/25 History omeprazole 40 mg capsule,delayed 40 mg PO DAILY 08/26/25 History release Processed by: Pharmacy Medications reviewed in ED?: Yes Medication History completed: Yes Patient Interview: Completed Secondary Source(s): Insurance records [facility] Statement: As the person ultimately responsible for medication therapy, providers are able to order a medication from an existing home medication list in [facility] via the "Reconcile Routine" prior to Confirmation of that medication by senior administrative support. Such practice is discouraged except when the physician, in their clinical judgment, deems that a medical need exists for a medication without regard to previous use.
[2025-08-26] MEDS: AZITHROMYCIN INJ 500 MG in SODIUM CHLORIDE 0.9% 250 ML IV STA (15:09)
--- NOTE | 2025-08-26 15:17 | ADVANCE CARE PLANNING NOTE ---
Advance Care Planning Planning Encounter Date: 08/26/25 Time: 15:16 Diagnosis for Encounter (1) Delirium: (2) Generalized weakness: (3) Pneumonia: Qualifiers: Laterality: unspecified laterality Lung location: unspecified part of lung Pneumonia type: due to unspecified organism Qualified Code(s): J18.9 - Pneumonia, unspecified organism (4) Lung cancer: Qualifiers: Laterality: right Lung location: lower lobe of lung Qualified Code(s): C34.31 - Malignant neoplasm of lower lobe, right bronchus or lung (5) Closed fracture of left superior pubic ramus: Qualifiers: Encounter type: subsequent encounter (6) Depression: Qualifiers: Depression Type: persistent depressive disorder Qualified Code(s): F34.1 - Dysthymic disorder (7) Protein calorie malnutrition: Qualifiers: Protein-calorie malnutrition severity: moderate Qualified Code(s): E44.0 - Moderate protein-calorie malnutrition (8) COPD (chronic obstructive pulmonary disease): Qualifiers: COPD type: unspecified COPD Qualified Code(s): J44.9 - Chronic obstructive pulmonary disease, unspecified (9) Cancer of right kidney: (10) Hypertension: (11) HLD (hyperlipidemia): Encounter Additional Discussion: Patient's case was reviewed. He has a history of recurrent lung cancer, that has only been diagnosed earlier this year. Stage IV at the time of diagnosis. He had previous history of lung cancer. Per his last palliative note, he has actually stopped smoking, his agrees with this. Patient was tolerating chemoimmunotherapy reasonably well until he had a bad case of pneumonia in July. He has had various decline since that time. The says that he has had more decline since his last chemotherapy at the end of July. Since that time he has had progressive inanition leading up to more or less being bed ridden for the last few days prior to hospitalization. We discussed his previous palliative care, his goals of treatment. He is clear on his POLST that he wants to continue to treat reversible causes, but if he were to be progressing with regard to his cancer, he wants to at home. I did ask his if she thought this represents a possibility of advancement of his cancer, and she stated that she had not yet consider that as an option. She thought that this likely represents an acute process. I shared that I was hopeful that this would be the case. The patient is very fatigued, and recurrently somnolent. He is difficult to engage with, and reports being very tired. He states he does not want to be in the hospital. He states he wants to go home. Is not clear if he is fully cognizant to the point where he is requesting to go home with hospice at this time. Graciously he states he is comfortable. - We are getting further imaging, to further elucidate the cause of his decline - Treating for pneumonia if this is a reversible process - Patient is DNR/DNI - Palliative care is aware of his hospitalization, Marichuy has offered her insight if we need it, appreciated - If his cancer is progressing despite treatment, and he is here with effectively side effects of his treatment, this may be an appropriate time to engage with hospice. Describe this to his , and she is hopeful to get more information. Code Status: Do Not Attempt Resuscitation Time spent on advance care plannin
[2025-08-26] MEDS ORDERED: ALBUTEROL NEB 2.5 MG/3 ML INH PRN (15:20)
[2025-08-26] MEDS: SODIUM CHLORIDE FLUSH 0.9% 10 ML SYRINGE IVP SCH (21:42)
[2025-08-26] MEDS: MIRTAZAPINE 15 MG TABLET PO SCH (21:42)
[2025-08-26] MEDS: GABAPENTIN 300 MG CAPSULE PO SCH (21:42)
[2025-08-27] MEDS: BUDESONIDE 0.5 MG/2 ML NEB INH SCH (02:34)
[2025-08-27] MEDS: IPRATROPIUM 0.2 MG/ML NEB INH SCH (02:35)
[2025-08-27] MEDS: FORMOTEROL FUMARATE NEB 20 MCG/2 ML INH SCH (02:35)
[2025-08-27 04:59] LABS: HCT - HEMATOCRIT 23.5 % (42.0-52.0); HGB - HEMOGLOBIN 7.9 g/dL (14.0-18.0); MEAN PLATELET VOLUME 9.2 fL (7.4-11.4); NRBC ABSOLUTE COUNT (AUTO) 0.00 x10^3/uL; NUCLEATED RED BLOOD CELLS AUTO 0.0 /100WBC; PLT - PLATELET COUNT 463 10^3/uL (130-450); RED CELL DISTRIBUTION WIDTH 17.1 % (12.0-15.0)
[2025-08-27 05:14] LABS: BUN - BLOOD UREA NITROGEN 10.0 mg/dL (6-20); CARBON DIOXIDE - CO2 24.0 mmol/L (21-32); CREATININE 0.6 mg/dL (0.6-1.3); GFR - MDRD 132.0 (>89)
[2025-08-27] MEDS: PANTOPRAZOLE 40 MG TABLET PO SCH (06:37)
[2025-08-27] MEDS: METOPROLOL SUCCINATE 50 MG TABLET PO SCH (08:53)
[2025-08-27] MEDS: AZITHROMYCIN 250 MG TABLET PO SCH (08:53)
[2025-08-27] MEDS: MULTIVITAMIN TABLET PO SCH (08:53)
[2025-08-27] MEDS: CHOLECALCIFEROL 25 MCG TABLET PO SCH (08:53)
[2025-08-27] MEDS: FOLIC ACID 1 MG TABLET PO SCH (08:53)
[2025-08-27] MEDS: cefTRIAXone 1 GM in SODIUM CHLORIDE 0.9% MINIBAG 100 ML IV SCH (08:53)
--- NOTE | 2025-08-27 09:13 | CT Report ---
PROCEDURE: CT Chest W INDICATIONS: Recent pneumonia, lung cancer, AMS, not hypoxic CONTRAST: omni 300, 80ml TECHNIQUE: After the administration of intravenous contrast, a CT scan of the chest was performed. Images were recorded and evaluated at appropriate window settings. Reformats: axial MIP of the chest, coronal and sagittal. For radiation dose reduction, the following was used: automated exposure control, adjustment of mA and/or kV according to patient size. COMPARISON: 04/11/2025, 02/14/2025 FINDINGS: Image quality: Diagnostic. Chest wall and lower neck: No thyroid nodule which requires sonographic follow up. No breast mass. No axillary or supraclavicular adenopathy by size. Lungs and pleura: Volume loss in the left lung, presumably from prior surgery. There is new dependent consolidation in both lungs, with debris within the airways. Small left pleural effusion with pleural thickening. Increased soft tissue associated with the atypical cystic lesion in the superior right lower lobe (series 10, image 172). Mediastinum: Heart size is enlarged. No pericardial effusion. No large vessel abnormality. No mediastinal adenopathy by size criteria. Moderate hiatal hernia. Bones: No aggressive osseous abnormality. Upper Abdomen: Stable size of the 1.8 cm left adrenal nodule. IMPRESSION: New dependent consolidation in both lungs, with debris within the airways. Findings are concerning for aspiration pneumonia. Increased soft tissue associated with the atypical cystic lesion in the superior right lower lobe. Findings remain highly concerning for malignancy. Stable size of the 1.8 cm left adrenal nodule. Reviewed by: Mark Summers MD on 08/27/2025 9:10 AM PDT Approved by: Mark Summers MD on 08/27/2025 9:10 AM PDT Station ID: [id number]
[2025-08-27] MEDS: ONDANSETRON ODT 4 MG TABLET TL PRN (09:35)
[2025-08-27] MEDS: POTASSIUM CHLORIDE 20 MEQ TABLET PO ONE (10:28)
--- NOTE | 2025-08-27 12:21 | PROVIDER PROGRESS NOTE ---
Subjective Subjective Subjective: This morning, patient states that he is feeling a little bit better. He denies any cough, fevers, chills. He does state that he has been feeling very weak at home. is at bedside, and she states that he has had multiple falls at home. Most notably, was a fall about a month ago. An x-ray was done at that time which showed a minimally displaced left superior pubic ramus fracture. It was to be treated nonoperatively, and patient was advised to follow-up with orthopedic surgery. He fell again. He has been able to weight-bear since falling, and does have some mild pain in the region. Extensive discussion with at bedside. We talked about his cancer diagnosis. He has a previous history of left lung cancer with a upper lobe resection in 2014, as well as right kidney cancer, in remission. He was recently diagnosed with stage IV right lung cancer in 03/01. Reviewed Dr. De Oliveira, his oncologists' notesmost recent PET scan was done 03/01 which shows numerous lung nodules, probable primary lung cancers with hypervascular bilateral hilar lymph nodes. Right lung biopsy was positive for adenocarcinoma. MRI was negative for any metastatic disease. He does have stage IV disease. He is currently receiving carboplatin, pemetrexed, pembrolizumab. We talked about continuing treatment versus hospice care. 's mother was enrolled in hospice so she was very familiar with the process. She was interested in a possible consultation. During discussion, the patient was quite sleepy and lethargic. Will rediscuss tomorrow to make sure that everybody is on the same page. Also spoke with palliative care, Marichuy, regarding overall goals of care as patient. Will continue discussions about overall goals of care when patient is more awake and alert. Current Medications Current Medications Current Medications: Current Medications Generic Name Dose Route Start Last Admin Trade Name Freq PRN Reason Stop Dose Admin Acetaminophen 650 mg 08/26/25 13:02 Acetaminophen 325 Mg Tablet PO Q4HR PRN Pain 1 to 4, or Fever Albuterol 2.5 mg 08/26/25 15:20 Albuterol Neb 2.5 Mg/3 Ml INH RTQ4H PRN Wheezing Azithromycin 500 mg 08/27/25 09:00 08/27/25 08:53 Azithromycin 250 Mg Tablet PO 08/28/25 09:01 500 mg DAILY [facility] Administration Budesonide 0.5 mg 08/26/25 19:00 08/27/25 08:36 Budesonide 0.5 Mg/2 Ml Neb INH Not Given RTBID [facility] Cholecalciferol 25 mcg 08/27/25 09:00 08/27/25 08:53 Cholecalciferol 25 Mcg Tablet PO 25 mcg DAILY [facility] Administration Folic Acid 1 mg 08/27/25 09:00 08/27/25 08:53 Folic Acid 1 Mg Tablet PO 1 mg DAILY [facility] Administration Formoterol Fumarate 20 mcg 08/26/25 19:00 08/27/25 08:36 Formoterol Fumarate Neb 20 Mcg/2 Ml INH Not Given RTBID [facility] Gabapentin 300 mg 08/26/25 21:00 08/27/25 08:53 Gabapentin 300 Mg Capsule PO 300 mg BID [facility] Administration Hydromorphone HCl 0.5 mg 08/26/25 13:02 Hydromorphone 0.5 Mg/0.5 Ml Syringe IVP Q2H PRN Pain 8 to 10 Ceftriaxone Sodium 1 gm/ 100 mls @ 200 mls/hr 08/27/25 09:00 08/27/25 09:40 Sodium Chloride IV Infused DAILY [facility] Infusion Ipratropium [place] 0.5 mg 08/26/25 19:00 08/27/25 08:36 Ipratropium 0.2 Mg/Ml Neb INH Not Given RTQ6H [facility] Metoprolol Succinate 50 mg 08/27/25 09:00 08/27/25 08:53 Metoprolol Succinate 50 Mg Tablet PO 50 mg DAILY [facility] Administration Mirtazapine 15 mg 08/26/25 21:00 08/26/25 21:42 Mirtazapine 15 Mg Tablet PO 15 mg HS [facility] Administration Multivitamins 1 tab 08/27/25 08:00 08/27/25 08:53 Multivitamin Tablet PO 1 tab DAILYWM [facility] Administration Ondansetron HCl 4 mg 08/26/25 13:02 08/27/25 09:35 Ondansetron Odt 4 Mg Tablet TL 4 mg Q6HR PRN Administration Nausea / Vomiting Ondansetron HCl 4 mg 08/26/25 13:02 Ondansetron 4 Mg/2 Ml Vial IVP Q6HR PRN Nausea / Vomiting Oxycodone HCl 5 mg 08/26/25 13:02 Oxycodone 5 Mg Tablet PO Q4HR PRN Pain 5 to 7 Oxycodone HCl 10 mg 08/26/25 13:02 Oxycodone 5 Mg Tablet PO Q4HR PRN Pain 8 to 10 Pantoprazole Sodium 40 mg 08/27/25 07:00 08/27/25 06:37 Pantoprazole 40 Mg Tablet PO 40 mg QDAC [facility] Administration Sodium Chloride 10 ml 08/26/25 13:02 Sodium Chloride Flush 0.9% 10 Ml Syringe IVP PRN PRN NEEDED PER PROVIDER ORDERS Sodium Chloride 10 ml 08/26/25 17:00 08/27/25 08:53 Sodium Chloride Flush 0.9% 10 Ml Syringe IVP 10 ml 0100,0900,1700 [facility] Administration Objective Vital Signs/Intake & Output Reviewed Vital Signs: Yes Intake & Output: Intake & Output 08/24/25 08/25/25 08/26/25 08/27/25 23:59 23:59 23:59 23:59 Intake Total 2350 / 2350 100 / 100 Output Total 225 / 225 Balance 2125 / 2125 100 / 100 Weight (kg) 55 kg Objective General Appearance: positive No acute distress, Lethargic and Other (Temporal wasting noted, cachectic, frail); negative Anxious Eyes Bilateral: positive Normal inspection, PERRL and EOMI ENT: positive ENT inspection nml, Pharynx nml and Dry mucous membranes Neck: positive Nml inspection, Thyroid nml and No JVD Respiratory: positive Chest non-tender, No respiratory distress and Other (Diminished breath sounds bilaterally, fine rhonchi heard diffusely ); negative Wheezes, Rales or Rhonchi Cardiovascular: positive Regular rate & rhythm, No murmur and No gallop; negative Tachycardia or Systolic murmur Abdomen: positive Non-tender, No organomegaly and No distention; negative Guarding or Splenomegaly Back: positive Nml inspection; negative CVA tenderness (R) or CVA tenderness (L) Skin: positive Color nml, No rash, Warm and Dry Extremities: positive Non-tender, Nml appearance and No pedal edema; negative Full ROM (Left lower extremity limited due to pain) Neurologic/Psychiatric: positive Motor nml, Mood/affect nml, Disoriented to time and Other (Lethargic at times, slow to respond) Lab Results 08/27/25 04:52 08/27/25 04:52 Other Labs: Lab Results x24hrs 08/27/25 08/27/25 08/26/25 Range/Units 09:21 04:52 15:33 WBC 6.1 (4.8-10.8) x10^3/uL RBC 2.20 L (4.70-6.10) 10^6/uL Hgb 7.9 L (14.0-18.0) g/dL Hct 23.5 L (42.0-52.0) % MCV 106.8 H (80.0-94.0) fL MCH 35.9 H (27.0-31.0) pg MCHC 33.6 (32.0-36.0) g/dL RDW 17.1 H (12.0-15.0) % Plt Count 463 H (130-450) 10^3/uL MPV 9.2 (7.4-11.4) fL Neut # (Auto) 4.3 (1.5-6.6) 10^3/uL Lymph # (Auto) 1.1 L (1.5-3.5) 10^3/uL [place] # (Auto) 0.7 (0.0-1.0) 10^3/uL Eos # (Auto) 0.0 (0.0-0.7) 10^3/uL Baso # (Auto) 0.0 (0.0-0.1) 10^3/uL Absolute Nucleated RBC 0.00 x10^3/uL Nucleated RBC % 0.0 /100WBC Sodium 135 (135-145) mmol/L Potassium 3.0 L (3.5-4.5) mmol/L Chloride 101 (101-111) mmol/L Carbon Dioxide 24 (21-32) mmol/L Anion Gap 10.0 (6-13) BUN 10 (6-20) mg/dL Creatinine 0.6 (0.6-1.3) mg/dL Estimated GFR (MDRD) 132 (>89) Glucose 68 L (74-104) mg/dL POC Whole Bld Glucose 87 (70-100) mg/dL Calcium 8.5 (8.5-10.3) mg/dL Ammonia 33.8 (18-72) umol/L Lactate Dehydrogenase 160 (140-271) IU/L TSH 1.22 (0.34-5.60) uIU/mL Urine Color Urine Clarity (CLEAR) Urine pH (5.0-7.5) PH Ur Specific [place] (1.002-1.030) Urine Protein (NEGATIVE) mg/dL Urine Glucose (UA) (NEGATIVE) mg/dL Urine Ketones (NEGATIVE) mg/dL Urine Occult Blood (NEGATIVE) Urine Nitrite (NEGATIVE) Urine Bilirubin (NEGATIVE) Urine Urobilinogen (NORMAL) E.U./dL Ur Leukocyte Esterase (NEGATIVE) Ur Microscopic Review Urine Culture Comments 08/26/25 Range/Units 13:14 WBC (4.8-10.8) x10^3/uL RBC (4.70-6.10) 10^6/uL Hgb (14.0-18.0) g/dL Hct (42.0-52.0) % MCV (80.0-94.0) fL MCH (27.0-31.0) pg MCHC (32.0-36.0) g/dL RDW (12.0-15.0) % Plt Count (130-450) 10^3/uL MPV (7.4-11.4) fL Neut # (Auto) (1.5-6.6) 10^3/uL Lymph # (Auto) (1.5-3.5) 10^3/uL [place] # (Auto) (0.0-1.0) 10^3/uL Eos # (Auto) (0.0-0.7) 10^3/uL Baso # (Auto) (0.0-0.1) 10^3/uL Absolute Nucleated RBC x10^3/uL Nucleated RBC % /100WBC Sodium (135-145) mmol/L Potassium (3.5-4.5) mmol/L Chloride (101-111) mmol/L Carbon Dioxide (21-32) mmol/L Anion Gap (6-13) BUN (6-20) mg/dL Creatinine (0.6-1.3) mg/dL Estimated GFR (MDRD) (>89) Glucose (74-104) mg/dL POC Whole Bld Glucose (70-100) mg/dL Calcium (8.5-10.3) mg/dL Ammonia (18-72) umol/L Lactate Dehydrogenase (140-271) IU/L TSH (0.34-5.60) uIU/mL Urine Color YELLOW Urine Clarity CLEAR (CLEAR) Urine pH 6.5 (5.0-7.5) PH Ur Specific [place] 1.015 (1.002-1.030) Urine Protein TRACE (NEGATIVE) mg/dL Urine Glucose (UA) NEGATIVE (NEGATIVE) mg/dL Urine Ketones TRACE (NEGATIVE) mg/dL Urine Occult Blood NEGATIVE (NEGATIVE) Urine Nitrite NEGATIVE (NEGATIVE) Urine Bilirubin NEGATIVE (NEGATIVE) Urine Urobilinogen 1 (NORMAL) (NORMAL) E.U./dL Ur Leukocyte Esterase NEGATIVE (NEGATIVE) Ur Microscopic Review NOT INDICATED Urine Culture Comments NOT INDICATED Diagnostic Imaging Diagnostic Imaging Results: positive Final report reviewed Assessment/Plan Problem List (1) Generalized weakness: Impression: Patient presents with generalized decline, cough, fevers, chills, worsened weakness following chemotherapy session. Chest x-ray shows right basilar pneumonia, severe emphysematous changes. Chest CT shows new dependent consolidation, bilaterally, concern for aspiration pneumonia. Increased soft tissue associated with atypical cystic lesion in superior right lower lobe, concerning for malignancy. Patient remains afebrile, with a normal white count. Continue Rocephin and azithromycin for CAP coverage. If continued medical treatment, will require speech therapy as well as a physical therapy evaluation. Did have long goals of care discussion as outlined above with at bedside. She is leaning towards Hospice. Will await improvement in mentation and lethargy of the patient, as he was fully decisional prior to onset of this, in the past few weeks before moving forward with this. Discussed this with palliative care as well, as they are well aware of the patient. In the meantime, treat medically as above. (2) Delirium: Impression: Resolving. Continue strict precautions, lights on during day, off at night. Family at bedside. Frequent re-orientation. (3) Pneumonia: Impression: Chest x-ray shows right basilar pneumonia, severe emphysematous changes. Chest CT shows new dependent consolidation, bilaterally, concern for aspiration pneumonia. Increased soft tissue associated with atypical cystic lesion in superior right lower lobe, concerning for malignancy. Patient remains afebrile, with a normal white count. Continue Rocephin and azithromycin for CAP coverage. Will consider escalation to Un[facility] if worsens. Qualifiers: Laterality: unspecified laterality Lung location: unspecified part of lung Pneumonia type: due to unspecified organism Qualified Code(s): J18.9 - Pneumonia, unspecified organism (4) Lung cancer: Impression: Patient with a previous history of left lung cancer with a upper lobe resection in 2014, as well as right kidney cancer (clear cell carcinoma), in remission. He was recently diagnosed with stage IV right lung cancer in 03/01. Reviewed Dr. De Oliveira, his oncologists' notesmost recent PET scan was done 03/01 which shows numerous lung nodules, probable primary lung cancers with hypervascular bilateral hilar lymph nodes. Right lung biopsy was positive for adenocarcinoma. MRI was negative for any metastatic disease. He does have stage IV disease. He is currently receiving carboplatin, pemetrexed, pembrolizumab. We talked about continuing treatment versus hospice care. 's mother was enrolled in hospice so she was very familiar with the process. She was interested in a possible consultation. During discussion, the patient was quite sleepy and lethargic. Will rediscuss tomorrow. Also spoke with palliative care, Marichuy, regarding overall goals of care as patient. Qualifiers: Laterality: right Lung location: lower lobe of lung Qualified Code(s): C34.31 - Malignant neoplasm of lower lobe, right bronchus or lung (5) Closed fracture of left superior pubic ramus: Impression: Minimally displaced left superior pubic ramus fracture noted on x-ray 08/07. He has had a fall since. Repeat x-ray ordered. Qualifiers: Encounter type: subsequent encounter Fracture healing: with routine healing Qualified Code(s): S32.512D - Fracture of superior rim of left pubis, subsequent encounter for fracture with routine healing (6) Depression: Impression: Continue mirtazipine. Qualifiers: Depression Type: persistent depressive disorder Qualified Code(s): F 34.1 - Dysthymic disorder (7) Protein calorie malnutrition: Impression: Patient with clear signs of malnutrition. BMI 15. Loss of muscle mass. Both acute and chronic. Not meeting caloric intake given likely increased metabolic demand of his tumor. Continue mirtazipine, regular diet. Qualifiers: Protein-calorie malnutrition severity: moderate Qualified Code(s): E 44.0 - Moderate protein-calorie malnutrition (8) COPD (chronic obstructive pulmonary disease): Impression: Longstanding history of COPD. 50-year smoking history. Only recently quit earlier this year. He is on fluticasone-salmeterol twice daily, Spiriva and as needed albuterol. No wheezing on exam. He is on room air. Not on chronic oxygen. Continue daily inhalers, smoking cessation, goal saturation 88 to 92%. Qualifiers: COPD type: unspecified COPD Qualified Code(s): J44.9 - Chronic obstructive pulmonary disease, unspecified (9) Cancer of right kidney: Impression: Noted. Remote. Likely unrelated to his chronic or acute condition. (10) Hypertension: Impression: Continue metoprolol. Qualifiers: Hypertension type: unspecified Qualified Code(s): I10 - Essential (primary) hypertension (11) HLD (hyperlipidemia): Impression: Hold statin. Qualifiers: Hyperlipidemia type: unspecified Qualified Code(s): E78.5 - Hyperlipidemia, unspecified
[2025-08-28] MEDS: oxyCODONE 5 MG TABLET PO PRN ×2 (03:40→13:14)
[2025-08-28 05:24] LABS: HCT - HEMATOCRIT 24.2 % (42.0-52.0); HGB - HEMOGLOBIN 7.8 g/dL (14.0-18.0); MEAN PLATELET VOLUME 9.5 fL (7.4-11.4); NRBC ABSOLUTE COUNT (AUTO) 0.00 x10^3/uL; NUCLEATED RED BLOOD CELLS AUTO 0.0 /100WBC; PLT - PLATELET COUNT 489 10^3/uL (130-450); RED CELL DISTRIBUTION WIDTH 17.8 % (12.0-15.0)
[2025-08-28 05:42] LABS: BUN - BLOOD UREA NITROGEN 11.0 mg/dL (6-20); CARBON DIOXIDE - CO2 27.0 mmol/L (21-32); CREATININE 0.8 mg/dL (0.6-1.3); GFR - MDRD 94.0 (>89)
--- NOTE | 2025-08-28 13:50 | PROVIDER PROGRESS NOTE ---
Subjective Subjective Subjective: This morning, patient states that he is feeling a little bit better. He denies any cough, fevers, chills. He does state that he has been feeling very weak at home. I spoke with Marichuy with palliative care this morning. She has been in communication with his oncologist, Dr. De Oliveira, who is in agreement that hospice may be the best next step for this patient. He has not been tolerating his chemotherapy very well. This is his third admission for a pneumonia. Extensive discussion with , and daughter at bedside. They have opted to move forward with hospice care. qualified craft worker electrician spoke with family at bedside, and they would like [facility]. I have consulted them today. Current Medications Current Medications Current Medications: Current Medications Generic Name Dose Route Start Last Admin Trade Name Freq PRN Reason Stop Dose Admin Acetaminophen 650 mg 08/26/25 13:02 Acetaminophen 325 Mg Tablet PO Q4HR PRN Pain 1 to 4, or Fever Albuterol 2.5 mg 08/26/25 15:20 Albuterol Neb 2.5 Mg/3 Ml INH RTQ4H PRN Wheezing Budesonide 0.5 mg 08/26/25 19:00 08/28/25 07:25 Budesonide 0.5 Mg/2 Ml Neb INH 0.5 mg RTBID [facility] Administration Cholecalciferol 25 mcg 08/27/25 09:00 08/28/25 08:48 Cholecalciferol 25 Mcg Tablet PO 25 mcg DAILY [facility] Administration Folic Acid 1 mg 08/27/25 09:00 08/28/25 08:47 Folic Acid 1 Mg Tablet PO 1 mg DAILY [facility] Administration Formoterol Fumarate 20 mcg 08/26/25 19:00 08/28/25 07:25 Formoterol Fumarate Neb 20 Mcg/2 Ml INH 20 mcg RTBID [facility] Administration Gabapentin 300 mg 08/26/25 21:00 08/28/25 08:47 Gabapentin 300 Mg Capsule PO 300 mg BID [facility] Administration Hydromorphone HCl 0.5 mg 08/26/25 13:02 Hydromorphone 0.5 Mg/0.5 Ml Syringe IVP Q2H PRN Pain 8 to 10 Ceftriaxone Sodium 1 gm/ 100 mls @ 200 mls/hr 08/27/25 09:00 08/28/25 09:40 Sodium Chloride IV Infused DAILY [facility] Infusion Ipratropium [place] 0.5 mg 08/26/25 19:00 08/28/25 07:25 Ipratropium 0.2 Mg/Ml Neb INH 0.5 mg RTQ6H [facility] Administration Metoprolol Succinate 50 mg 08/27/25 09:00 08/28/25 08:47 Metoprolol Succinate 50 Mg Tablet PO 50 mg DAILY [facility] Administration Mirtazapine 15 mg 08/26/25 21:00 08/27/25 20:20 Mirtazapine 15 Mg Tablet PO 15 mg HS [facility] Administration Multivitamins 1 tab 08/27/25 08:00 08/28/25 10:49 Multivitamin Tablet PO Not Given DAILYWM [facility] Ondansetron HCl 4 mg 08/26/25 13:02 08/27/25 09:35 Ondansetron Odt 4 Mg Tablet TL 4 mg Q6HR PRN Administration Nausea / Vomiting Ondansetron HCl 4 mg 08/26/25 13:02 Ondansetron 4 Mg/2 Ml Vial IVP Q6HR PRN Nausea / Vomiting Oxycodone HCl 5 mg 08/26/25 13:02 08/28/25 09:02 Oxycodone 5 Mg Tablet PO 5 mg Q4HR PRN Administration Pain 5 to 7 Oxycodone HCl 10 mg 08/26/25 13:02 08/28/25 13:14 Oxycodone 5 Mg Tablet PO 10 mg Q4HR PRN Administration Pain 8 to 10 Pantoprazole Sodium 40 mg 08/27/25 07:00 08/28/25 06:37 Pantoprazole 40 Mg Tablet PO 40 mg QDAC [facility] Administration Sodium Chloride 10 ml 08/26/25 13:02 Sodium Chloride Flush 0.9% 10 Ml Syringe IVP PRN PRN NEEDED PER PROVIDER ORDERS Sodium Chloride 10 ml 08/26/25 17:00 08/28/25 09:03 Sodium Chloride Flush 0.9% 10 Ml Syringe IVP 10 ml 0100,0900,1700 [facility] Administration Objective Vital Signs/Intake & Output Reviewed Vital Signs: Yes Vital Signs: Vital Signs x48h Pulse Resp 08/28/25 07:25 88 20 Intake & Output: Intake & Output 08/25/25 08/26/25 08/27/25 08/28/25 23:59 23:59 23:59 23:59 Intake Total 2350 / 2350 220 / 220 100 / 100 Output Total 225 / 225 Balance 2124 / 2124 220 / 220 100 / 100 Weight (kg) 55 kg Objective General Appearance: positive No acute distress, Lethargic and Other (Temporal wasting noted, cachectic, frail); negative Anxious Eyes Bilateral: positive Normal inspection, PERRL and EOMI ENT: positive ENT inspection nml, Pharynx nml and Dry mucous membranes Neck: positive Nml inspection, Thyroid nml and No JVD Respiratory: positive Chest non-tender, No respiratory distress and Other (Diminished breath sounds bilaterally, fine rhonchi heard diffusely ); negative Wheezes, Rales or Rhonchi Cardiovascular: positive Regular rate & rhythm, No murmur and No gallop; negative Tachycardia or Systolic murmur Abdomen: positive Non-tender, No organomegaly and No distention; negative Guarding or Splenomegaly Back: positive Nml inspection; negative CVA tenderness (R) or CVA tenderness (L) Skin: positive Color nml, No rash, Warm and Dry Extremities: positive Non-tender, Nml appearance and No pedal edema; negative Full ROM (Left lower extremity limited due to pain) Neurologic/Psychiatric: positive Motor nml, Mood/affect nml, Disoriented to time and Other (Lethargic at times, slow to respond) Lab Results 08/28/25 04:57 08/28/25 04:57 Other Labs: Lab Results x24hrs 08/28/25 Range/Units 04:57 WBC 6.4 (4.8-10.8) x10^3/uL RBC 2.21 L (4.70-6.10) 10^6/uL Hgb 7.8 L (14.0-18.0) g/dL Hct 24.2 L (42.0-52.0) % MCV 109.5 H (80.0-94.0) fL MCH 35.3 H (27.0-31.0) pg MCHC 32.2 (32.0-36.0) g/dL RDW 17.8 H (12.0-15.0) % Plt Count 489 H (130-450) 10^3/uL MPV 9.5 (7.4-11.4) fL Neut # (Auto) 4.5 (1.5-6.6) 10^3/uL Lymph # (Auto) 1.1 L (1.5-3.5) 10^3/uL [place] # (Auto) 0.9 (0.0-1.0) 10^3/uL Eos # (Auto) 0.0 (0.0-0.7) 10^3/uL Baso # (Auto) 0.0 (0.0-0.1) 10^3/uL Absolute Nucleated RBC 0.00 x10^3/uL Nucleated RBC % 0.0 /100WBC Sodium 136 (135-145) mmol/L Potassium 3.1 L (3.5-4.5) mmol/L Chloride 102 (101-111) mmol/L Carbon Dioxide 27 (21-32) mmol/L Anion Gap 7.0 (6-13) BUN 11 (6-20) mg/dL Creatinine 0.8 (0.6-1.3) mg/dL Estimated GFR (MDRD) 94 (>89) Glucose 98 (74-104) mg/dL Calcium 8.4 L (8.5-10.3) mg/dL Diagnostic Imaging Diagnostic Imaging Results: positive Final report reviewed Assessment/Plan Problem List (1) Generalized weakness: Impression: Patient presents with generalized decline, cough, fevers, chills, worsened weakness following chemotherapy session. Chest x-ray shows right basilar pneumonia, severe emphysematous changes. Chest CT shows new dependent consolidation, bilaterally, concern for aspiration pneumonia. Increased soft tissue associated with atypical cystic lesion in superior right lower lobe, concerning for malignancy. Patient remains afebrile, with a normal white count. Continue Rocephin CAP coverage. Completed three days of azithromycin. Did have long goals of care discussion as outlined above with and daughter at bedside. I spoke with Marichuy with palliative care this morning. She has been in communication with his oncologist, Dr. De Oliveira, who is in agreement that hospice may be the best next step for this patient. He has not been tolerating his chemotherapy very well. This is his third admission for a pneumonia. Family and patient have opted to move forward with hospice care. qualified craft worker electrician spoke with family at bedside, and they would like [facility]. I have consulted them today. (2) Delirium: Impression: Resolved. Continue strict precautions, lights on during day, off at night. Family at bedside. Frequent re-orientation. (3) Pneumonia: Impression: Chest x-ray shows right basilar pneumonia, severe emphysematous changes. Chest CT shows new dependent consolidation, bilaterally, concern for aspiration pneumonia. Increased soft tissue associated with atypical cystic lesion in superior right lower lobe, concerning for malignancy. Patient remains afebrile, with a normal white count. Continue Rocephin CAP coverage. Completed three days of azithromycin. Qualifiers: Laterality: unspecified laterality Lung location: unspecified part of lung Pneumonia type: due to unspecified organism Qualified Code(s): J18.9 - Pneumonia, unspecified organism (4) Lung cancer: Impression: Patient with a previous history of left lung cancer with a upper lobe resection in 2014, as well as right kidney cancer (clear cell carcinoma), in remission. He was recently diagnosed with stage IV right lung cancer in 03/01. Reviewed Dr. De Oliveira, his oncologists' notesmost recent PET scan was done 03/01 which shows numerous lung nodules, probable primary lung cancers with hypervascular bilateral hilar lymph nodes. Right lung biopsy was positive for adenocarcinoma. MRI was negative for any metastatic disease. He does have stage IV disease. Also spoke with palliative care, Marichuy, regarding overall goals of care as patient. Plan now to transition to Hospice. Qualifiers: Laterality: right Lung location: lower lobe of lung Qualified Code(s): C34.31 - Malignant neoplasm of lower lobe, right bronchus or lung (5) Closed fracture of left superior pubic ramus: Impression: Minimally displaced left superior pubic ramus fracture noted on x-ray 08/07. He has had a fall since. Repeat x-ray was ordered, read is pending. Qualifiers: Encounter type: subsequent encounter Fracture healing: with routine healing Qualified Code(s): S32.512D - Fracture of superior rim of left pubis, subsequent encounter for fracture with routine healing (6) Depression: Impression: Continue mirtazipine. Qualifiers: Depression Type: persistent depressive disorder Qualified Code(s): F 34.1 - Dysthymic disorder (7) Protein calorie malnutrition: Impression: Patient with clear signs of malnutrition. BMI 15. Loss of muscle mass. Both acute and chronic. Not meeting caloric intake given likely increased metabolic demand of his tumor. Continue mirtazipine, regular diet. Qualifiers: Protein-calorie malnutrition severity: moderate Qualified Code(s): E 44.0 - Moderate protein-calorie malnutrition (8) COPD (chronic obstructive pulmonary disease): Impression: Longstanding history of COPD. 50-year smoking history. Only recently quit earlier this year. He is on fluticasone-salmeterol twice daily, Spiriva and as needed albuterol. No wheezing on exam. He is on room air. Not on chronic oxygen. Continue daily inhalers, smoking cessation, goal saturation 88 to 92%. Qualifiers: COPD type: unspecified COPD Qualified Code(s): J44.9 - Chronic obstructive pulmonary disease, unspecified (9) Cancer of right kidney: Impression: Noted. Remote. Likely unrelated to his chronic or acute condition. (10) Hypertension: Impression: Continue metoprolol. Qualifiers: Hypertension type: unspecified Qualified Code(s): I10 - Essential (primary) hypertension (11) HLD (hyperlipidemia): Impression: Hold statin. Qualifiers: Hyperlipidemia type: unspecified Qualified Code(s): E78.5 - Hyperlipidemia, unspecified
[2025-08-28] MEDS: HYDROmorphone 0.5 MG/0.5 ML SYRINGE IVP PRN (15:09)
[2025-08-28] MEDS: ACETAMINOPHEN 325 MG TABLET PO PRN (23:47)
[2025-08-29 05:54] LABS: HCT - HEMATOCRIT 21.6 % (42.0-52.0); HGB - HEMOGLOBIN 7.2 g/dL (14.0-18.0); MEAN PLATELET VOLUME 9.4 fL (7.4-11.4); NRBC ABSOLUTE COUNT (AUTO) 0.00 x10^3/uL; NUCLEATED RED BLOOD CELLS AUTO 0.0 /100WBC; PLT - PLATELET COUNT 380 10^3/uL (130-450); RED CELL DISTRIBUTION WIDTH 17.6 % (12.0-15.0)
[2025-08-29 06:06] LABS: BUN - BLOOD UREA NITROGEN 10.0 mg/dL (6-20); CARBON DIOXIDE - CO2 26.0 mmol/L (21-32); CREATININE 0.8 mg/dL (0.6-1.3); GFR - MDRD 94.0 (>89)
[2025-08-29] MEDS ORDERED: MAGNESIUM SULFATE 1 GM/2 ML VIAL IVP STA (07:27)
[2025-08-29] MEDS: POTASSIUM CHLORIDE 20 MEQ/15 ML UDC PO SCH (09:07)
[2025-08-29] MEDS: POTASSIUM CHLOR 10 MEQ/100 ML 10 MEQ/100 ML BAG IV SCH (09:09)
--- NOTE | 2025-08-29 10:02 | PROVIDER PROGRESS NOTE ---
Subjective Subjective Subjective: This morning, patient states that he is feeling a little bit better. He denies any cough, fevers, chills. He does state that he has been feeling very weak at home. Extensive discussion with family at bedside on 08/28. They have opted to move forward with hospice care. 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 I have consulted them today. Current Medications Current Medications Current Medications: Current Medications Generic Name Dose Route Start Last Admin Trade Name Freq PRN Reason Stop Dose Admin Acetaminophen 650 mg 08/26/25 13:02 08/28/25 23:47 Acetaminophen 325 Mg Tablet PO 650 mg Q4HR PRN Administration Pain 1 to 4, or Fever Albuterol 2.5 mg 08/26/25 15:20 Albuterol Neb 2.5 Mg/3 Ml INH RTQ4H PRN Wheezing Budesonide 0.5 mg 08/26/25 19:00 08/28/25 18:19 Budesonide 0.5 Mg/2 Ml Neb INH 0.5 mg RTBID NORMAN Administration Cholecalciferol 25 mcg 08/27/25 09:00 08/29/25 09:06 Cholecalciferol 25 Mcg Tablet PO 25 mcg DAILY NORMAN Administration Formoterol Fumarate 20 mcg 08/26/25 19:00 08/28/25 18:18 Formoterol Fumarate Neb 20 Mcg/2 Ml INH 20 mcg RTBID NORMAN Administration Gabapentin 300 mg 08/26/25 21:00 08/29/25 09:06 Gabapentin 300 Mg Capsule PO 300 mg BID NORMAN Administration Hydromorphone HCl 0.5 mg 08/26/25 13:02 08/28/25 23:48 Hydromorphone 0.5 Mg/0.5 Ml Syringe IVP 0.5 mg Q2H PRN Administration Pain 8 to 10 Ceftriaxone Sodium 1 gm/ 100 mls @ 200 mls/hr 08/27/25 09:00 08/29/25 09:10 Sodium Chloride IV Infused DAILY NORMAN Infusion Ipratropium [place] 0.5 mg 08/26/25 19:00 08/29/25 06:39 Ipratropium 0.2 Mg/Ml Neb INH Not Given RTQ6H NORMAN Lorazepam 0.5 mg 08/28/25 15:05 Lorazepam 0.5 Mg Tablet PO Q6H PRN Anxiety Metoprolol Succinate 50 mg 08/27/25 09:00 08/29/25 09:06 Metoprolol Succinate 50 Mg Tablet PO 50 mg DAILY NORMAN Administration Mirtazapine 15 mg 08/26/25 21:00 08/28/25 21:37 Mirtazapine 15 Mg Tablet PO 15 mg HS NORMAN Administration Ondansetron HCl 4 mg 08/26/25 13:02 08/27/25 09:35 Ondansetron Odt 4 Mg Tablet TL 4 mg Q6HR PRN Administration Nausea / Vomiting Ondansetron HCl 4 mg 08/26/25 13:02 Ondansetron 4 Mg/2 Ml Vial IVP Q6HR PRN Nausea / Vomiting Oxycodone HCl 5 mg 08/26/25 13:02 08/29/25 05:19 Oxycodone 5 Mg Tablet PO 5 mg Q4HR PRN Administration Pain 5 to 7 Oxycodone HCl 10 mg 08/26/25 13:02 08/29/25 09:05 Oxycodone 5 Mg Tablet PO 10 mg Q4HR PRN Administration Pain 8 to 10 Pantoprazole Sodium 40 mg 08/27/25 07:00 08/29/25 05:19 Pantoprazole 40 Mg Tablet PO 40 mg QDAC NORMAN Administration Potassium Chloride 40 meq 08/29/25 08:00 08/29/25 09:07 Potassium Chloride 20 Meq/15 Ml Udc PO 40 meq DAILYWM NORMAN Administration Sodium Chloride 10 ml 08/26/25 13:02 Sodium Chloride Flush 0.9% 10 Ml Syringe IVP PRN PRN NEEDED PER PROVIDER ORDERS Sodium Chloride 10 ml 08/26/25 17:00 08/29/25 09:09 Sodium Chloride Flush 0.9% 10 Ml Syringe IVP Not Given 0100,0900,1700 NORMAN Objective Vital Signs/Intake & Output Reviewed Vital Signs: Yes Vital Signs: Vital Signs x48h Temp Pulse Resp BP Pulse Ox 08/29/25 08:00 97.7 F 56 L 16 126/64 95 Intake & Output: Intake & Output 08/26/25 08/27/25 08/28/25 08/29/25 23:59 23:59 23:59 23:59 Intake Total 2350 / 2350 220 / 220 400 / 400 303 / 303 Output Total 225 / 225 100 / 100 375 / 375 Balance 2125 / 2125 220 / 220 300 / 300 -72 / -72 Weight (kg) 55 kg Objective General Appearance: positive No acute distress, Lethargic and Other (Temporal wasting noted, cachectic, frail); negative Anxious Eyes Bilateral: positive Normal inspection, PERRL and EOMI ENT: positive ENT inspection nml, Pharynx nml and Dry mucous membranes Neck: positive Nml inspection, Thyroid nml and No JVD Respiratory: positive Chest non-tender, No respiratory distress and Other (Diminished breath sounds bilaterally, fine rhonchi heard diffusely ); negative Wheezes, Rales or Rhonchi Cardiovascular: positive Regular rate & rhythm, No murmur and No gallop; negative Tachycardia or Systolic murmur Abdomen: positive Non-tender, No organomegaly and No distention; negative Guarding or Splenomegaly Back: positive Nml inspection; negative CVA tenderness (R) or CVA tenderness (L) Skin: positive Color nml, No rash, Warm and Dry Extremities: positive Non-tender, Nml appearance and No pedal edema; negative Full ROM (Left lower extremity limited due to pain) Neurologic/Psychiatric: positive Motor nml, Mood/affect nml, Disoriented to time and Other (Lethargic at times, slow to respond) Lab Results 08/29/25 05:14 08/29/25 05:14 Other Labs: Lab Results x24hrs 08/29/25 Range/Units 05:14 WBC 5.6 (4.8-10.8) x10^3/uL RBC 2.00 L (4.70-6.10) 10^6/uL Hgb 7.2 L (14.0-18.0) g/dL Hct 21.6 L (42.0-52.0) % MCV 108.0 H (80.0-94.0) fL MCH 36.0 H (27.0-31.0) pg MCHC 33.3 (32.0-36.0) g/dL RDW 17.6 H (12.0-15.0) % Plt Count 380 (130-450) 10^3/uL MPV 9.4 (7.4-11.4) fL Neut # (Auto) 3.2 (1.5-6.6) 10^3/uL Lymph # (Auto) 1.4 L (1.5-3.5) 10^3/uL Brule # (Auto) 1.0 (0.0-1.0) 10^3/uL Eos # (Auto) 0.0 (0.0-0.7) 10^3/uL Baso # (Auto) 0.0 (0.0-0.1) 10^3/uL Absolute Nucleated RBC 0.00 x10^3/uL Nucleated RBC % 0.0 /100WBC Sodium 133 L (135-145) mmol/L Potassium 2.7 L (3.5-4.5) mmol/L Chloride 101 (101-111) mmol/L Carbon Dioxide 26 (21-32) mmol/L Anion Gap 6.0 (6-13) BUN 10 (6-20) mg/dL Creatinine 0.8 (0.6-1.3) mg/dL Estimated GFR (MDRD) 94 (>89) Glucose 86 (74-104) mg/dL Calcium 8.2 L (8.5-10.3) mg/dL Diagnostic Imaging Diagnostic Imaging Results: positive Final report reviewed Assessment/Plan Problem List (1) Generalized weakness: Impression: Patient presents with generalized decline, cough, fevers, chills, worsened weakness following chemotherapy session. Chest x-ray shows right basilar pneumonia, severe emphysematous changes. Chest CT shows new dependent consolidation, bilaterally, concern for aspiration pneumonia. Increased soft tissue associated with atypical cystic lesion in superior right lower lobe, concerning for malignancy. Patient remains afebrile, with a normal white count. Continue Rocephin CAP coverage, today is da. Completed three days of azithromycin. Did have long goals of care discussion as outlined above with and daughter at bedside. I spoke with Marichuy with palliative care this morning. She has been in communication with his oncologist, Dr. De Oliveira, who is in agreement that hospice may be the best next step for this patient. He has not been tolerating his chemotherapy very well. This is his third admission for a pneumonia. Family and patient have opted to move forward with hospice care. vegetable farm worker spoke with family at bedside, and [facility]. Plan for equipment delivery today, discharge to Hospice tomorrow. (2) Delirium: Impression: Resolved. Continue strict precautions, lights on during day, off at night. Family at bedside. Frequent re-orientation. (3) Pneumonia: Impression: Chest x-ray shows right basilar pneumonia, severe emphysematous changes. Chest CT shows new dependent consolidation, bilaterally, concern for aspiration pneumonia. Increased soft tissue associated with atypical cystic lesion in superior right lower lobe, concerning for malignancy. Patient remains afebrile, with a normal white count. Continue Rocephin CAP coverage, day 4/5. Completed three days of azithromycin. Qualifiers: Laterality: unspecified laterality Lung location: unspecified part of lung Pneumonia type: due to unspecified organism Qualified Code(s): J18.9 - Pneumonia, unspecified organism (4) Lung cancer: Impression: Patient with a previous history of left lung cancer with a upper lobe resection in 2014, as well as right kidney cancer (clear cell carcinoma), in remission. He was recently diagnosed with stage IV right lung cancer in 03/01. Reviewed Dr. De Oliveira, his oncologists' notesmost recent PET scan was done 03/01 which shows numerous lung nodules, probable primary lung cancers with hypervascular bilateral hilar lymph nodes. Right lung biopsy was positive for adenocarcinoma. MRI was negative for any metastatic disease. He does have stage IV disease. Also spoke with palliative care, Marichuy, regarding overall goals of care as patient. Plan now to transition to Hospice. Qualifiers: Laterality: right Lung location: lower lobe of lung Qualified Code(s): C34.31 - Malignant neoplasm of lower lobe, right bronchus or lung (5) Closed fracture of left superior pubic ramus: Impression: Minimally displaced left superior pubic ramus fracture noted on x-ray 08/07. He has had a fall since. Repeat x-ray was ordered, read is pending. Qualifiers: Encounter type: subsequent encounter Fracture healing: with routine healing Qualified Code(s): S32.512D - Fracture of superior rim of left pubis, subsequent encounter for fracture with routine healing (6) Depression: Impression: Continue mirtazipine. Qualifiers: Depression Type: persistent depressive disorder Qualified Code(s): F 34.1 - Dysthymic disorder (7) Protein calorie malnutrition: Impression: Patient with clear signs of malnutrition. BMI 15. Loss of muscle mass. Both acute and chronic. Not meeting caloric intake given likely increased metabolic demand of his tumor. Continue mirtazipine, regular diet. Qualifiers: Protein-calorie malnutrition severity: moderate Qualified Code(s): E 44.0 - Moderate protein-calorie malnutrition (8) COPD (chronic obstructive pulmonary disease): Impression: Longstanding history of COPD. 50-year smoking history. Only recently quit earlier this year. He is on fluticasone-salmeterol twice daily, Spiriva and as needed albuterol. No wheezing on exam. He is on room air. Not on chronic oxygen. Continue daily inhalers, smoking cessation, goal saturation 88 to 92%. Qualifiers: COPD type: unspecified COPD Qualified Code(s): J44.9 - Chronic obstructive pulmonary disease, unspecified (9) Cancer of right kidney: Impression: Noted. Remote. Likely unrelated to his chronic or acute condition. (10) Hypertension: Impression: Continue metoprolol. Qualifiers: Hypertension type: unspecified Qualified Code(s): I10 - Essential (primary) hypertension (11) HLD (hyperlipidemia): Impression: Hold statin. Qualifiers: Hyperlipidemia type: unspecified Qualified Code(s): E78.5 - Hyperlipidemia, unspecified
[2025-08-29] MEDS: MAGNESIUM SULFATE 2 GRAM 2 GM/50 ML BAG IV ONE (14:36)
[2025-08-29] MEDS: MAGNESIUM OXIDE 400 MG TABLET PO SCH (15:18)
--- NOTE | 2025-08-30 05:47 | XRAY Report ---
PROCEDURE: XR Hip w/Pelvis 2-3V LT INDICATIONS: fall, previous min displaced fracture TECHNIQUE: AP pelvis with lateral view(s) of the hip(s). COMPARISON: None. FINDINGS: Bones: No fractures or dislocations. 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 No suspicious bony lesions. Soft tissues: No suspicious soft tissue calcifications or masses. Atherosclerotic vascular calcifications. Residual contrast material within the urinary bladder. IMPRESSION: Degenerative change of the left hip without evidence of acute bony abnormality. Reviewed by: Manuelito Thornton MD on 08/30/2025 5:44 AM PDT Approved by: Manuelito Thornton MD on 08/30/2025 5:44 AM PDT Station ID: [id number]
--- NOTE | 2025-08-30 07:22 | Discharge Summary ---
Discharge Summary Admit Date: 08/26/25 Discharge Date: 08/30/25 Discharging Provider: Dr. Abdirizak Rader Primary Care Provider: Joseph Elliott (Marichuy Reece with Palliative Care) Code Status: Attempt Resuscitation Discharge Facility Name: Home with Hospice DIAGNOSES Discharge Diagnoses with Status of Each Condition: Generalized weakness, delirium, pneumoniapatient presents with generalized decline, coughs, fevers, chills. Chest CT shows new dependent consolidations, bilaterally, as well as increased soft tissue associated with atypical cystic lesion in the superior right lower lobe. He received 5 days of IV Rocephin, 3 days of azithromycin for possible community-acquired pneumonia. His shortness of breath did improve slightly, he never had a leukocytosis, and he remained afebrile. We had an overall goals of care discussion with patient, patient's , as well as patient's daughter at bedside. I also spoke with his palliative care team as well as his oncological care team. Plan is now home with hospice. He has stage IV lung cancer, and was receiving palliative chemotherapy, but has not tolerated it very well. [facility] hospice was consulted, equipment was delivered 08/29, and patient was discharged home with hospice. Deliriumresolved. Pneumoniaas above. Lung cancer atient with a previous history of left lung cancer with a upper lobe resection in 2014, as well as right kidney cancer (clear cell carcinoma), in remission. He was recently diagnosed with stage IV right lung cancer in 03/01. Reviewed Dr. De Oliveira, his oncologists' notesmost recent PET scan was done 03/01 which shows numerous lung nodules, probable primary lung cancers with hypervascular bilateral hilar lymph nodes. Right lung biopsy was positive for adenocarcinoma. MRI was negative for any metastatic disease. He does have stage IV disease. Close fracture of left superior pubic ramusx-ray was repeated, stable. Depressioncontinue mirtazapine. Protein calorie malnutritioncontinue pleasure feeds. COPDcontinue oxygen for comfort. Continue inhalers if they provide symptomatic relief. Cancer of right kidneyremote, likely unrelated to his chronic or acute condition. Hypertensioncontinue metoprolol to prevent rebound tachycardia. Hyperlipidemiahold statin indefinitely. HPI History of Present Illness: Per Dr. Richard Paniagua: This is a 74-year-old gentleman with a past medical history notable for adenocarcinoma of the left lung, prolonged smoking history, COPD on palliative chemotherapy. He presents with his after he was found to be progressively weak over the preceding days. He has been more somnolent and confused. His last oncology appointment was on 08/06. Reviewed the records. 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 He completed adjuvant chemotherapy with cisplatin and paclitaxel in 2015. He had a left upper lobe resection in 2014. He had numerous suspicious nodules on PET scan in February of this year with findings of right lower lobe and left lung apex carcinoma. This is stage IV. He is being treated with palliative pemetrexed, pembrolizumab. Last chemotherapy was on 08/06. Planned for 08/27. Getting chemo every 3 weeks. Most of his history is gathered from his via phone. The patient is able to mentate appropriately. He wakes and answers some simple yes or no questions accurately, but quickly falls back to sleep. He seems quite fatigued. He denies any pains. Does not wince on palpation across his exam. He says he is "always cold". His tells me that since his last chemo appointment on 08/06, he has had a precipitous decline. Since that time, he has become more and more somnolent. More and more fatigued. He has been spending more time in bed. Up until the last few days where he spent basically 24 hours a day in bed and asleep. She has tried to arouse him for meals. She says she has been able to actually wake him and he has been able to eat at least 2 small meals a day as well as drinking fluids. His labs overall are supportive of this. This all came to a head though when he fell last evening. She had to call the fire department out to get him off the floor. He later then went to the bedroom and laid across the bed and nursing home on the floor. She was unable to lift him into bed, and had to call the fire department again. At that time they decided to come to the ED. In the ED, he was found to have mostly normal metabolic workup. He has a slight hyponatremia 134, glucose 111, albumin 2.9. Normal renal function. Normal electrolytes. His CBC looks similar to early September labs. No leukocytosis. Hgb 8.2, platelets 440. Notably his platelets are the highest they have been going back to 2014. Unremarkable urine. CT of his head shows no acute process x-ray of his chest shows persistent and worsening right lower lobe opacities. There is thought to be a chronic left- sided opacity better seen on CT. Recommendation for correlation with CT. He was recently seen in July for concern with new lung mass and possible pneumonia. He was sent to [facility]. There is treated with IV antibiotics. There was consideration for bronchoscopy, but it was never done. He follows with palliative care. See my ACP note from today. CONSULTS | PROCEDURES Consultations: Hospice, Palliative Care, RT Procedures: Hip x-ray, chest CT, head CT, chest x-ray HOSPITAL COURSE Hospital Course: Patient is a 74-year-old male with a history of stage IV lung cancer, currently receiving palliative chemotherapy, who presented with generalized decline, cough, fevers, chills. Chest CT shows new dependent consolidations, bilaterally, as well as increased soft tissue associated with atypical cystic lesion in the superior right lower lobe. He received 5 days of IV Rocephin, 3 days of azithromycin for possible community-acquired pneumonia. His shortness of breath did improve slightly, he never had a leukocytosis, and he remained afebrile. We had an overall goals of care discussion with patient, patient's , as well as patient's daughter at bedside. I also spoke with his palliative care team as well as his oncological care team. Plan is now home with hospice. He has stage IV lung cancer, and was receiving palliative chemotherapy, but has not tolerated it very well. [facility] was consulted, equipment was delivered 08/29, and patient was discharged home with hospice. ALLERGIES Allergies Allergy/AdvReac Type Severity Reaction Status Date / Time No Known Drug Allergies Allergy Verified 08/26/25 10:15 MEDICATIONS Ambulatory Orders Medication Instructions Recorded Confirmed tiotropium bromide 18 mcg capsule 1 cap inhalation MARKEL LY 07/28/22 08/26/25 with inhalation device (Spiriva with HandiHaler) fluticasone 250 mcg-salmeterol 50 1 inh inhalation BID #60 ea 07/03/25 08/26/25 mcg/dose blistr powdr for inhalation gabapentin 300 mg capsule 300 mg PO BID #180 caps 07/0808/26/25 metoprolol succinate 50 mg 50 mg PO DAILY 07/22/25 tablet,extended release 24 hr oxycodone 5 mg tablet 5 - 10 mg (1 - 2 x 5 mg) PO Q4H 07/22/25 08/26/25 PRN pain #150 tabs polyethylene glycol 3350 17 17 g PO DAILY PRN wheezing 07/22/25 08/26/25 gram/dose oral powder (Miralax) albuterol sulfate 90 mcg/actuation 2 puff inhalation Q 4-6H PRN 08/26/25 08/26/25 aerosol inhaler shortness of breath or wheez ing omeprazole 40 mg capsule,delayed 40 mg PO DAILY 08/26/25 release bisacodyl 10 mg rectal suppository 10 mg NV DAILY PRN Constipation #3 08/30/25 (Dulcolax (bisacodyl)) ea lorazepam 0.5 mg tablet (Ativan) 0.5 mg PO Q6H PRN Anx iety #10 tabs 08/30/25 morphine concentrate 100 mg/5 mL 5 mg (0.25 mL) PO Q4H PRN pain or 08/30/25 (20 mg/mL) oral solution breathlessness #30 mL olanzapine 5 mg disintegrating 5 mg PO DAILY PRN Agit ation, 08/30/25 tablet (Zyprexa Zydis) nausea and vomiting #10 tabs sennosides 8.6 mg tablet (senna) 8.6 mg PO BID PRN Con stipation #10 08/30/25 tabs PHYSICAL EXAM AT DISCHARGE Vital Signs: Vital Signs x48h Temp Pulse Pulse Resp BP Pulse Ox O2 Flow Rate 08/30/25 09:05 98.8 F 79 18 103/64 99 3 08/30/25 08:18 84 20 3 08/30/25 07:48 98.8 F 75 18 120/67 92 2 General Appearance: positive No acute distress, Lethargic and Other (Temporal wasting noted, cachectic, frail); negative Anxious Eyes Bilateral: positive Normal inspection, PERRL and EOMI ENT: positive ENT inspection nml, Pharynx nml and Dry mucous membranes Neck: positive Nml inspection, Thyroid nml and No JVD Respiratory: positive Chest non-tender, No respiratory distress and Other (Diminished breath sounds bilaterally, fine rhonchi heard diffusely); negative Wheezes Cardiovascular: positive Regular rate & rhythm, No murmur and No gallop; negative Tachycardia or Systolic murmur Abdomen: positive Non-tender, No organomegaly and No distention; negative Guarding or Splenomegaly Back: positive Nml inspection; negative CVA tenderness (R) or CVA tenderness (L) Skin: positive Color nml, No rash, Warm and Dry Extremities: positive Non-tender, Nml appearance and No pedal edema; negative Full ROM (Left lower extremity limited due to pain) Neurologic/Psychiatric: positive Motor nml, Mood/affect nml, Disoriented to time and Other (Lethargic at times, slow to respond) LABS 08/29/25 05:14 08/29/25 16:41 FOLLOW UP Follow Up: Follow up with Hospice Care. TIME SPENT Time Spent in Discharge (Minutes): 35 Discharge Plan Discharge Patient Disposition: 50 Hospice/Home DC/Xfer Condition: Stable Prescriptions: New sennosides [senna] 8.6 mg Tablet 8.6 mg PO BID PRN (Reason: Constipation) Qty: 10 0RF Rx Instructions: Take one tablet, by mouth, twice a day as needed for constipation. morphine concentrate 100 mg/5 mL (20 mg/mL) Solution 5 mg PO Q4H PRN (Reason: pain or breathlessness) Qty: 30 0RF Rx Instructions: Take 0.25 ml (equal to 5 mg) by mouth, or under the tongue, every 4 hours as needed for moderate to severe pain. lorazepam [Ativan] 0.5 mg Tablet 0.5 mg PO Q6H PRN (Reason: Anxiety) Qty: 10 0RF Rx Instructions: Take one tablet, by mouth, every 6 hours as needed for anxiety. bisacodyl [Dulcolax (bisacodyl)] 10 mg Suppository 10 mg NV DAILY PRN (Reason: Constipation) Qty: 3 0RF Rx Instructions: Unwrap and insert one suppository rectally daily, as needed for constipation. olanzapine [Zyprexa Zydis] 5 mg Tablet,Disintegrating 5 mg PO DAILY PRN (Reason: Agitation, nausea and vomiting) Qty: 10 0RF Rx Instructions: Dissolve one tablet, in mouth, twice daily as needed for agitation or nausea and/or vomiting. Continued fluticasone propion-salmeterol 250-50 mcg/dose blister with device 1 inh inhalation BID Qty: 60 3RF tiotropium bromide [Spiriva with HandiHaler] 18 MCG capsule, w/inhalation device 1 cap inhalation DAILY albuterol sulfate 90 mcg/actuation HFA aerosol inhaler 2 puff INHALATION Q4-6H PRN (Reason: shortness of breath or wheezing) omeprazole 40 mg capsule,delayed release(DR/EC) 40 mg PO DAILY polyethylene glycol 3350 [Miralax] 17 gram/dose powder 17 g PO DAILY PRN (Reason: wheezing) metoprolol succinate 50 mg tablet extended release 24 hr 50 mg PO DAILY gabapentin 300 mg capsule 300 mg PO BID Qty: 180 3RF oxycodone 5 mg tablet 5 - 10 mg PO Q4H MDD Not to exceed 8/24 hours PRN (Reason: pain) Qty: 150 0RF Discontinued multivitamin 1 EACH capsule 1 tab PO DAILY cholecalciferol (vitamin D3) 1,000 UNIT capsule 1,000 unit PO DAILY atorvastatin 20 MG tablet 20 mg PO DAILY amlodipine 5 MG tablet 5 mg PO DAILY folic acid 1 mg tablet 1 mg PO DAILY mirtazapine 7.5 mg tablet 7.5 mg PO HS Activity Restrictions: Activity as Tolerated Diet: Regular Health Concerns: You came in because you were having difficulty breathing, and you were confused at home. You were found to have a pneumonia. For this, you received five days of antibiotics. It looks like you're doing better. I do understand that this is your third hospitalization since starting chemotherapy. We talked about your cancer diagnosis. I spoke with your practitioners, Marichuy with palliative care, as well as Dr. De Oliveira, your oncologist. They are in agreement that the likely next best step for you is hospice care. We talked a lot about what this would meanhow our goal is now to change from medical management to your comfort, and improving your quality of life at home. We hope that you are not feeling any pain, any anxiety, any shortness of breath when you go home. The hospice team will be meeting with you soon to identify any other needs that you may have. I can tell that you have a lot of love and support around you. It has been a pleasure getting to know you, your family. We hope that the next few months are full of love and comfort. Thank you for allowing us to take care of you. Print Language: Irish Patient Instructions: Hospice Managing Pain, Hospice Care Dyspnea Stand Alone Forms: PCP List Vitals documented within 30 minutes of discharge?: Yes (See DC VSs)
[2025-08-30 07:49] VITALS: TEMP 98.8
[2025-08-30 09:39] VITALS: BP 103/64; O2SAT 99
== END 2025-08-30 09:25 | disposition hospice, home (50) | DRG 190 ==
LOC: MS2 09:14 → ED 09:14 → MS2 13:20
PROVIDERS: ADMIT Student in an Organized Health Care Education/Training Program; ATTEND Student in an Organized Health Care Education/Training Program
DX: E44.0 Moderate protein-calorie malnutrition; Z66 Do not resuscitate; K21.9 Gastro-esophageal reflux disease without esophagitis; J18.9 Pneumonia, unspecified organism; I10 Essential (primary) hypertension; E87.1 Hypo-osmolality and hyponatremia; R29.6 Repeated falls; R41.0 Disorientation, unspecified; Z87.891 Personal history of nicotine dependence; M84.550A Pathological fracture in neoplastic disease, pelvis, initial encounter for fracture; F34.1 Dysthymic disorder; R53.1 Weakness; R64 Cachexia; E78.5 Hyperlipidemia, unspecified; J44.0 Chronic obstructive pulmonary disease with (acute) lower respiratory infection; C34.31 Malignant neoplasm of lower lobe, right bronchus or lung; Z92.21 Personal history of antineoplastic chemotherapy; C34.92 Malignant neoplasm of unspecified part of left bronchus or lung; Z79.899 Other long term (current) drug therapy; Z90.2 Acquired absence of lung [part of]; Z68.1 Body mass index [BMI] 19.9 or less, adult; Z85.528 Personal history of other malignant neoplasm of kidney